=== PATIENT | male | born 1965 | race Caucasian/White ===

== ENCOUNTER → 2017-12-17 12:07 | Outpatient (CLI) | payer OTHER, SELFPAY ==
[2015-12-17 12:56] VITALS: BMI 34.7
[2015-12-17 14:29] VITALS: BP 135/75
[2017-12-17 12:13] LABS: Bacteria 0 SEEN /hpf (None Seen); Mucous, Urine 0 SEEN /hpf (<or=2+); White Blood Cells 0 SEEN /hpf (0-5)
[2017-12-17 15:47] LABS: Absolute Lymphocyte Count 4.72 X10^3/ul (0.83-4.51); Absolute Neutrophil Count 5.3 X10^3/uL (2.0-7.7); Basophil# 0.03 X10^3/uL; Basophil% 0.3 % (0-1); Eosinophil# 0.19 X10^3/uL; Eosinophils% 1.8 % (0-5); Hematocrit 45.3 % (40-54); Hemoglobin 14.8 g/dl (13.0-16.5); Lymphocyte # 4.72 X10^3/ul (4.0); Lymphocyte % 43.7 % (19-41); Mean Corp Hgb Conc 32.7 g/gl (32-36); Mean Corpuscular Hgb 29.6 pg (27.0-32.0); Mean Corpuscular Volume 90.6 fL (80-94); Mean Platelet Vol. 10.6 fl (6.2-12.0); Monocyte# 0.59 X10^3/uL; Monocyte% 5.5 % (0-10); Neutrophil # 5.25 X10^3/uL (2.7-7.7); Neutrophil % 48.4 % (47-70); POSITIVE COUNT NO; POSITIVE DIFFERENTIAL NO; POSITIVE MORPHOLOGY NO; Platelet Count 251 K/mm3 (150-450); RBC Distribution Width CV 13.9 % (11.6-14.6); RBC Distribution Width SD 45.7 fl (35.1-43.9); White Blood Count 10.8 K/mm3 (4.4-11.0)
[2017-12-17 15:55] LABS: Color, Urine Straw (Yellow); Glucose, Dipstick Normal (Normal); Ketone-Dipstick Negative (Negative); Leukocyte Esterase-Dipstick Negative /ul (Negative); Nitrite-Dipstick Negative (Negative); Occult Blood-Urine Negative /ul (Negative); Protein-Dipstick Negative (Negative); Urine Bilirubin Dipstick Negative (Negative); Urine Clarity Clear (Clear); Urine Urobilinogen Normal (Normal)
[2017-12-17 16:10] LABS: AST(SGOT) 18 U/L (15-37); Alanine Aminotransfer ALT/SGPT 29 U/L (16-61); Albumin, Serum 3.8 g/dL (3.2-5.0); Alkaline Phosphatase 105 U/L (45-117); Anion Gap 10 (5-15); BUN 13 mg/dL (7-18); BUN/Creat Ratio 13.4 RATIO (10-20); Calcium,Total 8.9 mg/dL (8.5-10.1); Chloride 104 mmol/L (98-107); Cholesterol 169 mg/dL (200); Creatinine, Serum 0.97 mg/dL (0.70-1.30); EST Glomerular Filtration Rate 87 mL/min (>60); Est Glom Filt Rate - Afr Amer 105 mL/min (>60); Globulin 3.8 g/dL (2.2-4.2); Glucose 80 mg/dL (74-106); High Density Lipoprotein 29 mg/dL; PSA,Total - Annual Screen 0.46 ng/mL (0.00-4.00); Potassium 4.4 mmol/L (3.5-5.1); Protein, Total 7.6 g/dL (6.4-8.2); Sodium Level 139 mmol/L (136-145); Thyroid Stim Hormone (TSH) 2.23 uIU/mL (0.358-3.74); Triglycerides 259 mg/dL; Very Low Density Lipoprotein 52 mg/dL (5-40)
[2017-12-17 16:13] LABS: Squamous Epithelial Cells - UA 0-5 SEEN /hpf (0-5)
[2017-12-17 16:15] LABS: Red Blood Cells-Urine 0-5 SEEN /hpf (0-5)
[2017-12-19 08:32] LABS: Hep C Antibodies <0.1 s/co ratio (0.0-0.9)
== END ==
PROVIDERS: Family Provider Family Medicine; PCP Family Medicine; Visit Provider Family Medicine
DX: E66.9 Obesity, unspecified (principal); Z72.0 Tobacco use; Z13.29 Encounter for screening for other suspected endocrine disorder; Z83.3 Family history of diabetes mellitus; Z80.42 Family history of malignant neoplasm of prostate; Z13.220 Encounter for screening for lipoid disorders; Z11.59 Encounter for screening for other viral diseases
CPT/HCPCS: 36415; 80053; 80061; 81001; 83036; 84153; 84443; 85025; 86803; G0103

== ENCOUNTER 2018-01-10 11:32 | Emergency (ER) | payer OTHER, SELFPAY ==
[2018-01-10 11:33] VITALS: BP 136/64; PULSE 78; RESP 18; TEMP 36.6; O2SAT 98; BMI 36.4
[2018-01-10 11:41] VITALS: BP 114/82; PULSE 105; RESP 20; O2SAT 98
--- NOTE | 2018-01-10 12:02 | RAD_ITS ---
STUDY: X-RAY CHEST REASON FOR EXAM: Male, 53 years old. Dyspnea and A. fib TECHNIQUE: Single AP portable view of the chest. COMPARISON: 01/14/2015 FINDINGS: The lungs are clear and expanded. There is no demonstrated pleural abnormality. There is mild cardiac enlargement. Normal mediastinum and jesus. Normal visualized pulmonary arteries. Normal visualized aortic arch and descending thoracic aorta. Normal visualized thoracic spine. Normal visualized ribs, clavicles, and shoulders. There is no demonstrated abnormality of the visualized soft tissue structures of the upper abdomen. RAD/Chest 1 View (Portable) IMPRESSION: No acute findings Electronically Signed: Ramon King DO at 12:54 EST Tel , Service support ,
--- NOTE | 2018-01-10 12:05 | ED.DCSUM_ITS ---
- ER Visit Summary Date of Service: 01/10/18 Chief Complaint: Atrial fibrillation History of Present Illness: The patient is a 53 M sent from preop for findings of A. fib on EKG. Patient states that intermittent palpitations for a while. He complained of exertional dyspnea. Patient does smoke. Currently on bronchitis treatment day 6 on Levaquin and preparations for his surgery today. Supposed to have an umbilical hernia repair by Dr. Douglass. No fevers. No nausea or vomiting. No stroke history. Denies history of CHF, diabetes, hypertension. No diagnosis of A. fib in the past. Currently denies symptoms. He states he had a PE in 1994 post surgery with infections. He is off anticoagulation medications. Physical Examination: General: Alert and oriented ?3, no acute distress HEENT: Normocephalic, atraumatic. Moist mucosa membranes Neck: supple, nontender. Cardiovascular: Irregular, tachycardic rate and rhythm, no murmurs Respiratory: Normal breath sounds, symmetric, no distress Abdomen: Soft, nontender, nondistended Extremities: Nontender, no edema, pulses intact ?4 Neuro: no focal neurological deficits. Test Results: Reviewed EKG sent up with the patient with A. fib, rate of 114, no ST or T-wave changes. CBC: White count 14.8. Hemoglobin 16. ENT normal. D -dimer 0.32. Troponin negative. Chest x-ray: No acute process Emergency Department Course and Treatment: Patient currently asymptomatic, EKG reviewed with Jina marie with RVR rate of 114. No acute changes. I did check labs troponin which were negative. Exertional dyspnea with tachycardia, low risk Wells criteria for PE. D-dimer obtained which was negative. Chads score is a 0. I did speak with his surgeon, Dr. Douglass on arrival, states with the new onset A. fib, anesthesia would not perform procedures for operation today. He will need cardiac clearance prior to his surgery and it would need to be rescheduled. He was given metoprolol 50 mg orally. Heart rate improved in the 80s and is controlled. Blood pressure stable systolic 120s. I did discuss with cardiology, he will be placed on metoprolol, he will take aspirin daily for his A. fib. Discussed with nursing for Dr. Borrero. He is given a follow-up for outpatient evaluation and cardiac clearance on the 14th of this month. Patient discharged with outpatient follow-up. Pulse ox is stable. Treatment Plan: [] Disposition: Discharge Impression: 1. New onset atrial fibrillation This note was generated with [employer] dictation software. It may contain incorrect words, spelling, and punctuation that were not noted in review of the chart prior to signing ED Disposition - Plan for ED Patient: Disposition: Home or Assisted Living Chief Complaint: Palpitations Diagnosis: Atrial fibrillation Instructions: ED Afib Prescriptions: Metoprolol(XL)Succ [Toprol Xl (Beta Raheem)] 50 mg PO DAILY #60 tablet Referrals: Koffi Armstrong MD [Primary Care Provider] - Julio Borrero MD [STAFF PHYSICIAN] - Keep Jose appointment Additional Instructions: Take aspirin 325 mg daily along with new medication.
[2018-01-10 12:25] LABS: Absolute Lymphocyte Count 5.51 X10^3/ul (0.83-4.51); Absolute Neutrophil Count 8.2 X10^3/uL (2.0-7.7); Basophil# 0.03 X10^3/uL; Basophil% 0.2 % (0-1); Eosinophil# 0.13 X10^3/uL; Eosinophils% 0.9 % (0-5); Hematocrit 47.4 % (40-54); Hemoglobin 16.1 g/dl (13.0-16.5); Lymphocyte # 5.51 X10^3/ul (4.0); Lymphocyte % 37.3 % (19-41); Mean Corpuscular Hgb 29.9 pg (27.0-32.0); Mean Corpuscular Volume 87.9 fL (80-94); Mean Platelet Vol. 9.9 fl (6.2-12.0); Monocyte# 0.81 X10^3/uL; Monocyte% 5.5 % (0-10); Neutrophil # 8.22 X10^3/uL (2.7-7.7); Neutrophil % 55.6 % (47-70); Platelet Count 268 K/mm3 (150-450); RBC Distribution Width CV 13.8 % (11.6-14.6); Red Blood Count 5.39 M/mm3 (4.6-6.2); White Blood Count 14.8 K/mm3 (4.4-11.0)
[2018-01-10 12:27] LABS: Differential Indicated SCAN CRITERIA MET; POSITIVE COUNT NO; POSITIVE DIFFERENTIAL YES; POSITIVE MORPHOLOGY NO
[2018-01-10 12:31] LABS: Anion Gap 10 (5-15); BUN 17 mg/dL (7-18); BUN/Creat Ratio 17.9 RATIO (10-20); Calcium,Total 8.8 mg/dL (8.5-10.1); Chloride 101 mmol/L (98-107); Creatinine, Serum 0.95 mg/dL (0.70-1.30); D-Dimer Quantitative (DVT/PE) 0.32 FEU/ug/m (0.27-0.49); EST Glomerular Filtration Rate 89 mL/min (>60); Est Glom Filt Rate - Afr Amer 107 mL/min (>60); Estimated Creatinine Clearance 93.92 ml/min; Glucose 85 mg/dL (74-106); Potassium 4.2 mmol/L (3.5-5.1); Sodium Level 137 mmol/L (136-145)
[2018-01-10 12:54] LABS: Reactive Lymphocyte RARE
[2018-01-10] MEDS: Metoprolol Tartrate 25 MG Tablet 50 MG PO (13:09)
[2018-01-10 14:11] VITALS: BP 114/72; PULSE 86; RESP 16; O2SAT 96
[2018-01-10 14:38] VITALS: BP 134/85; PULSE 73; RESP 16; O2SAT 97
[2018-01-10 15:06] VITALS: BP 130/74; PULSE 80; RESP 14; O2SAT 99
[2018-01-11 13:42] LABS: Pathologist Review Reviewed
== END 2018-01-10 15:07 | disposition home or self-care (01) ==
PROVIDERS: Emergency Provider Emergency Medicine; Family Provider Family Medicine; PCP Family Medicine
DX: I48.91 Unspecified atrial fibrillation (principal); F17.200 Nicotine dependence, unspecified, uncomplicated; J40 Bronchitis, not specified as acute or chronic; Z86.711 Personal history of pulmonary embolism; Z79.2 Long term (current) use of antibiotics
CPT/HCPCS: 71045; 80048; 84484; 85025; 85379; 99285; A4216

== ENCOUNTER 2018-01-25 11:55 | Day surgery (SDC) | payer OTHER, SELFPAY ==
[2018-01-10 10:51] VITALS: BP 141/88; PULSE 86; RESP 16; TEMP 36.3; O2SAT 98; BMI 36.3
[2018-01-25] VITALS (10 sets, daily range): BP systolic 84–141; BP diastolic 52–90; PULSE 68–150; RESP 16–18; TEMP 36.1–36.8; O2SAT 94–100; BMI 36.6
--- NOTE | 2018-01-25 14:24 | PCM.DC.HER ---
Discharge Diet: Light diet - advance as tolerated Discharge Activity: Return to Normal Activity, May Drive - when you are no longer taking narcotic pain medications., May Shower - with the bandage in place 1-2 days after surgery. Lifting Restrictions: 20 pounds for 8 weeks. Additional Activity Instructions:: Climbing stairs is fine, walking is encouraged. Sitting in bed may be uncomfortable. Sitting up using your lateral muscles (sitting up sideways) is usually more comfortable. Do not drive, work heavy equipment of sign legal documents for 24 hours. If your hernia repair was an ingunial repair, you may have scrotal swelling, an ice pack and/or athletic support can provide more comfort. Pain medications may cause nausea, you should typically eat light foods as you take your pain medications. Pain medications may also cause constipation. If you have difficulty with this, discuss with your doctor. Call your doctor if your incision/area has: Continuous Slow Oozing, Sudden Increased Bleeding, Increased Pain/ Swelling, Increased Redness, Foul Smelling Discharge Call your doctor if you observe: Fever of 101 or Higher Suture Line Care: Avoid Pulling/Pushing, Avoid Pinching/Bending Additional Dressing/Incision Instructions:: Leave the operative bandage on for 2-3 days. When you remove the bandage, leave the steri-strips on place until your follow up appointment or they fall off. Allergies/Adverse Reactions: Allergies amoxicillin trihydrate [From Augmentin] Adverse Reaction (Verified 01/12/18 15:51) Nausea/Vom/Diarrhea potassium clavulanate [From Augmentin] Adverse Reaction (Verified 01/12/18 15:51) Nausea/Vom/Diarrhea Medications to take at Discharge calcium carbonate 200 mg calcium (500 mg) chewable tablet 200 mg PO TID tab 12/22/17 Varenicline [Chantix] 1 mg PO BID 01/03/18 Metoprolol(XL)Succ [Toprol Xl (Beta Raheem)] 50 mg PO DAILY #60 tab 01/10/18 aspirin 81 mg tablet,delayed release 81 mg PO QDAY tab 01/12/18 Oxycodone HCl/Acetaminophen [Percocet 5/325] 1 - 2 tab PO Q4H PRN PRN 4 Days #30 tab 01/25/18 The following prescriptions were given: Oxycodone HCl/Acetaminophen [Percocet 5/325] 1 - 2 tab PO Q4H PRN PRN 4 Days #30 tab PRN Reason: Pain Primary Care Physician: Koffi Armstrong MD [Primary Care Provider] - Please Follow Up With: Aravind Douglass MD - [phone] When: Plan to have a follow up appointment in 7 days. Call to schedule.
--- NOTE | 2018-01-25 14:25 | PCM.OPRPT ---
Problem List (1) Umbilical hernia without obstruction or gangrene Status: Acute Report of Operation Date of Procedure: 01/25/18 Pre-Operative Diagnosis: k42.9 umbilical hernia without obstruction or gangrene Post-Operative Diagnosis: Same Surgery/Procedure Performed:: Umbilical hernia repair with mesh Type of Anesthesia:: General Anesthesiologist: Reinaldo Jha Estimated Blood Loss (mL): < 25 cc Description of Procedure: Patient was brought into the operating room. He was placed in the supine position. Under excellent general endotracheal intubation the abdomen was sterilely prepped and draped in the usual fashion. Local was injected. A curvilinear incision was made above the umbilicus. Dissection was carried down hernia was identified I dissected the fatty tissue off of the hernia and placed it back into its preperitoneal space. I dissected free a preperitoneal window circumferentially around this umbilical defect no other defects were palpated. I placed a medium ventral X hernia patch into the wound. It laid completely flat. I circumferentially tacked it to the fascia with #1 Nurolon's. All these in interrupted [id number] fashion. I injected local into the surrounding tissue. The wound was brought together with deep dermal stitches of 3-0 Vicryl. A running 4-0 Monocryl. Steri-Strips are applied [place] cotton was applied sterile dressings were applied the patient tolerated the procedure well. - Admit VTE Documentation VTE Present on Admission: No VTE Mechan Device Prophylaxis: SCD's VTE Pharm Prophylaxis ordered?: No Reason prophylaxis not ordered:: Treatment Not Indicated
[2018-01-25] MEDS: Clindamycin 900 MG/50 ML BAG 75 MG IV (14:26)
[2018-01-25] MEDS: Bupivacaine Mpf 0.5% 30 ML VIAL (14:50)
[2018-01-25] MEDS: oxyCODONE 5 MG Tablet 10 MG PO (18:03)
== END 2018-01-25 18:33 | disposition home or self-care (01) ==
LOC: SDC 11:57 → AC 11:57
PROVIDERS: Family Provider Family Medicine; PCP Family Medicine; Visit Provider Surgery
PROC: (CPT 49585; principal; 2018-01-25 14:15)
DX: K42.9 Umbilical hernia without obstruction or gangrene (principal); K21.9 Gastro-esophageal reflux disease without esophagitis; F17.200 Nicotine dependence, unspecified, uncomplicated; Z79.1 Long term (current) use of non-steroidal anti-inflammatories (NSAID); Z86.711 Personal history of pulmonary embolism
CPT/HCPCS: 00830; 49585; 93005; C1781; J7120; J2405

== ENCOUNTER 2018-03-07 10:42 | Outpatient (RCR) | payer OTHER, SELFPAY ==
[2018-02-28 16:29] LABS: Prothrombin Time (Protime)PT. 22.8 SECONDS (11.7-14.9)
[2018-03-07 12:38] LABS: International Normalized Ratio 2.3; Prothrombin Time (Protime)PT. 25.4 SECONDS (11.7-14.9)
== END 2018-03-07 11:00 | disposition home or self-care (01) ==
LOC: LAB 10:42
PROVIDERS: Family Provider Family Medicine; PCP Family Medicine; Visit Provider Internal Medicine Cardiovascular Disease
DX: I48.91 Unspecified atrial fibrillation (principal)
CPT/HCPCS: 36415; 85610

== ENCOUNTER → 2018-03-14 09:48 | Outpatient (CLI) | payer OTHER, SELFPAY ==
[2018-03-14 11:07] LABS: International Normalized Ratio 2.4; Prothrombin Time (Protime)PT. 26.3 SECONDS (11.7-14.9)
== END ==
LOC: LAB.FUTURE 09:50
PROVIDERS: Family Provider Family Medicine; PCP Family Medicine; Visit Provider Internal Medicine Cardiovascular Disease
DX: I48.91 Unspecified atrial fibrillation (principal)
CPT/HCPCS: 36415; 85610

== ENCOUNTER 2018-03-21 09:52 | Outpatient (RCR) | payer OTHER, SELFPAY ==
[2018-03-21 10:28] LABS: International Normalized Ratio 2.1; Prothrombin Time (Protime)PT. 23.9 SECONDS (11.7-14.9)
[2018-03-21 10:51] LABS: Anion Gap 9 (5-15); BUN 16 mg/dL (7-18); BUN/Creat Ratio 16.8 RATIO (10-20); Calcium,Total 9.3 mg/dL (8.5-10.1); Chloride 106 mmol/L (98-107); Creatinine, Serum 0.95 mg/dL (0.70-1.30); EST Glomerular Filtration Rate 88 mL/min (>60); Est Glom Filt Rate - Afr Amer 107 mL/min (>60); Glucose 100 mg/dL (74-106); Potassium 4.5 mmol/L (3.5-5.1); Sodium Level 136 mmol/L (136-145)
== END 2018-03-21 10:00 | disposition home or self-care (01) ==
LOC: LAB 09:52
PROVIDERS: Nurse Practitioner Family; Family Provider Family Medicine; PCP Family Medicine; Visit Provider Internal Medicine Cardiovascular Disease
DX: I48.91 Unspecified atrial fibrillation (principal)
CPT/HCPCS: 36415; 80048; 85610

== ENCOUNTER → 2018-03-28 12:20 | Day surgery (SDC) | payer OTHER, SELFPAY ==
[2018-03-25 10:43] VITALS: BMI 32.4
[2018-03-28 11:30] LABS: Prothrombin Time Fingerstick 26.5 SEC (11.9-14.4)
--- NOTE | 2018-03-28 12:54 | PCM.OP.BLANK ---
Operative Report Date of Procedure: 03/28/18 DC cardioversion. 53-year-old man with a history of chronic persistent atrial fibrillation. Patient's noted to be on anticoagulation with a therapeutic INR over the last 4 weeks. The patient was brought into the cardiac catheterization lab noninvasive section. Patient was seen by Dr. Drake Esqueda of the critical care division. After informed consent was obtained anterior posterior pads were applied. The patient was then administered 60 mg of intravenous propofol. 300 J of synchronized DC cardioversion energy were applied with prompt reversal to sinus rhythm. Patient tolerated the procedure well with no sequelae. Postoperative EKG confirmed the above. Conclusion: Successful DC cardioversion from atrial fibrillation to sinus rhythm Plan Follow-up EKG in the office in follow-up. .
--- NOTE | 2018-03-28 13:00 | PCM.OP.BLANK ---
Operative Report Date of Procedure: 03/28/18 CONSCIOUS SEDATION REPORT DATE OF SERVICE: March 28, 2018 BRIEF HISTORY OF PRESENT ILLNESS: The patient is a 53-year-old male who presented to [facility] for an elective outpatient cardioversion due to underlying atrial fibrillation. The patient is currently therapeutically anticoagulated on Coumadin with an INR of 2.3 this morning. His last surface echocardiogram revealed ejection fraction of approximately 55%. The patient is a current smoker of one pack per day. There is concern for potential underlying obstructive sleep apnea. However, the patient is yet to undergo a formal polysomnogram. He denies any previous anesthetic complications. The patient has never previously undergone a cardioversion. PHYSICAL EXAMINATION: VITAL SIGNS: Reviewed and were acceptable. GENERAL: The patient is an overweight male, in no apparent distress, speaking in full sentences. HEENT: Normocephalic, atraumatic. Mucous membranes are moist and pink. Good mouth opening noted. Trachea is midline. Good neck mobility. CHEST: S1, S2 irregularly irregular. No murmurs, rubs or gallops were noted. LUNGS: Clear to auscultation bilaterally without appreciable wheezes, rales or rhonchi. ABDOMEN: Soft, nontender, nondistended. Positive bowel sounds. EXTREMITIES: There is no clubbing, cyanosis or edema. ASA Class: II DESCRIPTION OF PROCEDURE: After confirmation of informed consent, the patient's anesthesia plan was reviewed in detail. Propofol was chosen. Risks and benefits were reviewed and the patient agreed to proceed. At 1233, the patient was given 60 mg of propofol. The patient achieved an appropriate level of sedation and was given a 300 joule synchronized cardioversion by Dr. Borrero at the bedside. This was successful in achieving normal sinus rhythm. The patient was monitored until 1238, at which time he reached his baseline mental status and function. The patient tolerated the procedure well. COMPLICATIONS: None ESTIMATED BLOOD LOSS: None RECOMMENDATIONS: Okay to recover in usual fashion. Code Visit 9xxxx: Other Procedure See Report - [id number]
== END ==
PROVIDERS: Family Provider Family Medicine; PCP Family Medicine; Visit Provider Internal Medicine Cardiovascular Disease
DX: I48.91 Unspecified atrial fibrillation (principal); K21.9 Gastro-esophageal reflux disease without esophagitis; F17.210 Nicotine dependence, cigarettes, uncomplicated; G47.10 Hypersomnia, unspecified; E66.9 Obesity, unspecified; Z68.30 Body mass index [BMI] 30.0-30.9, adult; Z86.711 Personal history of pulmonary embolism; Z79.01 Long term (current) use of anticoagulants; Z79.82 Long term (current) use of aspirin; Z79.899 Other long term (current) drug therapy
CPT/HCPCS: 36416; 85610; 92960; 93005; J7040

== ENCOUNTER → 2018-05-13 20:00 | Outpatient (CLI) | payer OTHER, SELFPAY | PROVIDERS: Family Provider Family Medicine; PCP Family Medicine; Visit Provider Nurse Practitioner Family | DX: R06.09 Other forms of dyspnea (principal); E66.9 Obesity, unspecified; I48.91 Unspecified atrial fibrillation | CPT/HCPCS: 95811 ==

== ENCOUNTER → 2018-07-28 09:14 | Outpatient (CLI) | payer OTHER, SELFPAY ==
[2018-07-28 09:52] LABS: International Normalized Ratio 3.2; Prothrombin Time (Protime)PT. 32.7 SECONDS (11.7-14.9)
== END ==
PROVIDERS: Family Provider Family Medicine; PCP Family Medicine; Visit Provider Nurse Practitioner Acute Care
DX: R06.09 Other forms of dyspnea (principal)
CPT/HCPCS: 36415; 85610

== ENCOUNTER 2018-09-14 14:30 | Outpatient (RCR) | payer OTHER, SELFPAY ==
[2018-09-14 16:41] LABS: Prothrombin Time (Protime)PT. 36.2 SECONDS (11.7-14.9)
[2018-09-14 16:50] LABS: International Normalized Ratio 3.6
== END 2018-10-07 09:35 | disposition home or self-care (01) ==
LOC: LAB 14:30
PROVIDERS: Physician Assistant Medical; Family Provider Family Medicine; PCP Family Medicine; Referring Provider Internal Medicine Cardiovascular Disease; Visit Provider Internal Medicine Cardiovascular Disease
DX: I48.91 Unspecified atrial fibrillation (principal)
CPT/HCPCS: 36415; 85610

== ENCOUNTER 2018-10-11 12:55 | Outpatient (RCR) | payer OTHER, SELFPAY ==
[2018-10-11 11:59] VITALS: BMI 39.3
[2018-10-11 13:52] LABS: International Normalized Ratio 2.7; Prothrombin Time (Protime)PT. 29.1 SECONDS (11.7-14.9)
== END 2018-10-11 13:00 | disposition home or self-care (01) ==
LOC: LAB 12:55
PROVIDERS: Family Provider Family Medicine; PCP Family Medicine; Referring Provider Internal Medicine Cardiovascular Disease; Visit Provider Internal Medicine Cardiovascular Disease
DX: I48.91 Unspecified atrial fibrillation (principal)
CPT/HCPCS: 36415; 85610

== ENCOUNTER → 2018-10-25 10:49 | Outpatient (CLI) | payer OTHER, SELFPAY ==
[2018-10-25 09:19] VITALS: BMI 39.3
[2018-10-25 13:29] LABS: Absolute Lymphocyte Count 3.71 X10^3/ul (0.83-4.51); Absolute Neutrophil Count 6.2 X10^3/uL (2.0-7.7); Basophil# 0.04 X10^3/uL; Basophil% 0.4 % (0-1); Eosinophil# 0.16 X10^3/uL; Eosinophils% 1.5 % (0-5); Lymphocyte # 3.71 X10^3/ul (4.0); Lymphocyte % 34.5 % (19-41); Mean Corp Hgb Conc 33.3 g/gl (32-36); Mean Platelet Vol. 10.8 fl (6.2-12.0); Monocyte# 0.65 X10^3/uL; Neutrophil # 6.17 X10^3/uL (2.7-7.7); Neutrophil % 57.3 % (47-70); Platelet Count 278 K/mm3 (150-450); RBC Distribution Width CV 13.9 % (11.6-14.6); RBC Distribution Width SD 45.7 fl (35.1-43.9); White Blood Count 10.8 K/mm3 (4.4-11.0)
[2018-10-25 13:30] LABS: POSITIVE COUNT NO; POSITIVE DIFFERENTIAL NO; POSITIVE MORPHOLOGY NO
[2018-10-25 13:43] LABS: International Normalized Ratio 2.1; Prothrombin Time (Protime)PT. 23.8 SECONDS (11.7-14.9)
--- OUTSIDE RECORDS SUMMARY | 2019-01-26 19:05 | XMS RPT_ITS ---
:1965 Author Organization OHIP Support Name Relationship Address Phone FIORELLA ERIK Unavailable [address] + [place] [address] [employer] [facility] [employer] Unavailable [address] + [place] [address] LUKE MARCUS Unavailable [address] + [place] [address] FIORELLA ERIK Unavailable [address] + [place] [address] [employer] [facility] [employer] Unavailable [address] + [place] [address] LUKE MARCUS Unavailable [address] + [place] [address] FIORELLA ERIK Unavailable [address] + [place] [address] [employer] Unavailable [address] + [place] [address] LUKE MARCUS Unavailable [address] + [place] [address] FIORELLA ERIK Unavailable [address] + [place] [address] [employer] Unavailable [address] + [place] [address] LUKE MARCUS Unavailable [address] + [place] [address] FIORELLA ERIK Unavailable [address] + [place] [address] [employer] [facility] [employer] Unavailable [address] + [place] [address] LUKE MARCUS Unavailable Unavailable + BARROS, ERIK Unavailable [address] + [place] [address] [employer] [facility] [employer] Unavailable [address] + [place] [address] LUKE MARCUS Unavailable . + ., . . BARROS, ERIK Unavailable [address] + [place] [address] [facility] [employer] Unavailable [address] + [place] [address] LADI MARCUSON Unavailable . + ., . . FTIZPATRICK, ERIK Unavailable Unavailable + NOT GIVEN Unavailable Unavailable Unavailable BARROS, ERIK Unavailable [address] + [place] [address] [facility] [employer] Unavailable [address] + [place] [address] LUKE MARCUS Unavailable Unavailable + BARROS, ERIK Unavailable [address] + [place] [address] [employer] [facility] [employer] Unavailable . +. [place] [address] LUKE MARCUS Unavailable . + [place] [address] BARROS, ERIK Unavailable [address] + [place] [address] [facility] [employer] Unavailable . +. [place] [address] LUKE MARCUS Unavailable . + [place] [address] BARROS, ERIK Unavailable [address] + [place] [address] [facility] [employer] Unavailable . +. [place] [address] LUKE MARCUS Unavailable Unavailable + [place] BARROS, ERIK Unavailable [address] + [place] [address] UE Unavailable Unavailable Unavailable LUKE MARCUS Unavailable [address] + [place] [address] BARROS, ERIK Unavailable [address] + [place] [address] UE Unavailable Unavailable Unavailable WELLS, LUKE Unavailable [address] + [place] [address] BARORS, ERIK Unavailable [address] + [place] [address] UE Unavailable Unavailable Unavailable WELLS, LUKE Unavailable [address] + [place] [address] BARROS, ERIK Unavailable [address] + [place] [address] UE Unavailable Unavailable Unavailable WELLS, LUKE Unavailable [address] + [place] [address] BARROS, ERIK Unavailable [address] + [place] [address] UE Unavailable Unavailable Unavailable WELLS, LUKE Unavailable [address] + [place] [address] BARROS, ERIK Unavailable [address] + [place] [address] UE Unavailable Unavailable Unavailable WELLS, LUKE Unavailable [address] + [place] [address] BARROS, ERIK Unavailable [address] + [place] [address] UE Unavailable Unavailable Unavailable WELLS, LUKE Unavailable [address] + [place] [address] BARROS, ERIK Unavailable [address] + [place] [address] UE Unavailable Unavailable Unavailable WELLS, LUKE Unavailable [address] + [place] [address] BARROS, ERIK Unavailable [address] + [place] [address] UE Unavailable Unavailable Unavailable WELLS, LUKE Unavailable Unavailable + [place] [address] BARROS, ERIK Unavailable [address] + [place] [address] UE Unavailable Unavailable Unavailable WELLS, LUKE Unavailable Unavailable + [place] [address] BARROS, ERIK Unavailable [address] + [place] [address] UE Unavailable Unavailable Unavailable LUKE MARCUS Unavailable Unavailable + [place] [address] BARROS, ERIK Unavailable [address] + [place] [address] UE Unavailable Unavailable Unavailable LUKE MARCUS Unavailable [address] + [place] [address] BARROS, ERIK Unavailable [address] + [place] [address] UE Unavailable Unavailable Unavailable BARROS, ERIK Unavailable [address] + [place] [address] UE Unavailable Unavailable Unavailable BARROS, ERIK Unavailable [address] + [place] [address] UE Unavailable Unavailable Unavailable BARROS, ERIK Unavailable [address] + [place] [address] UE Unavailable Unavailable Unavailable BARROS, ERIK Unavailable [address] + [place] [address] UE Unavailable Unavailable Unavailable BARROS, ERKI Unavailable [address] + [place] [address] UE Unavailable Unavailable Unavailable BARROS, ERIK Unavailable [address] + [place] [address] UE Unavailable Unavailable Unavailable BOGCO Unavailable [address] + [place] [address] BARROS, ERIK Unavailable [address] + [place] [address] BOGCO Unavailable [address] + [place] [address] BARROS, ERIK Unavailable [address] + [place] [address] BOGCO Unavailable [address] + [place] [address] BARROS, ERIK Unavailable [address] + [place] [address] BOG[facility] Unavailable [address] + [place] [address] BARROS, ERIK Unavailable [address] + [place] [address] BOG[facility] Unavailable [address] + [place] [address] BARROS, ERIK Unavailable [address] + [place] [address] BOG[facility] Unavailable [address] + [place] [address] BARROS, ERIK Unavailable [address] + [place] [address] BOG[facility] Unavailable [address] + [place] [address] BARROS, ERIK Unavailable [address] + [place] [address] BOG[facility] Unavailable [address] + [place] [address] BARROS, ERIK Unavailable [address] + [place] [address] BOG[facility] Unavailable [address] + [place] [address] BARROS, ERIK Unavailable [address] + [place] [address] FTIZPATRICK, ERIK Unavailable Unavailable + [facility]OG[facility] Unavailable [address] + [place] [address] BARROS, ERIK Unavailable [address] + [place] [address] BOG[facility] Unavailable [address] + [place] [address] BARROS, ERIK Unavailable [address] + [place] [address] BOG[facility] Unavailable [address] + [place] [address] BARROS, ERIK Unavailable [address] + [place] [address] BOG[facility] Unavailable [address] + [place] [address] BARROS, ERIK Unavailable [address] + [place] [address] BOG[facility] Unavailable [address] + [place] [address] BARROS, ERIK Unavailable [address] + [place] [address] BOG[facility] Unavailable [address] + [place] [address] BARROS, ERIK Unavailable [address] + [place] [address] BOG[facility] Unavailable [address] + [place] [address] BARROS, ERIK Unavailable [address] + [place] [address] Care Team Providers Name Role Phone JULIO BORRERO MD Admitting Unavailable JULIO BORRERO MD Attending Unavailable JULIO BORRERO MD Primary Care Unavailable KAUR BENNETT Consulting Unavailable PROVIDER, UNKNOWN Consulting Unavailable PROVIDER, UNKNOWN Consulting Unavailable HUNG BASURTO DO Admitting Unavailable HUNG BASURTO DO Attending Unavailable HUNG BASURTO DO Primary Care Unavailable KAUR BENNETT Consulting Unavailable KAUR BENNETT Referring Unavailable PROVIDER, UNKNOWN Consulting Unavailable PROVIDER, UNKNOWN Consulting Unavailable Tracey Tabor Attending Unavailable Krishna Mendoza Referring Unavailable Tracey Tabor Attending Unavailable Krishna Mendoza Primary Care Unavailable Julio Borrero Attending Unavailable Julio Borrero Referring Unavailable Krishna Mendoza Primary Care Unavailable Tracey Tabor Consulting Unavailable Edelmira Saldana Consulting Unavailable Drake Esqueda D.O. Attending Unavailable Krishna Mendoza Referring Unavailable Krishna Mendoza Attending Unavailable Krishna Mendoza Primary Care Unavailable Aravind Douglass Attending Unavailable Krishna Mendoza Referring Unavailable Krishna Mendoza Primary Care Unavailable Krishna Mendoza Attending Unavailable Krishna Mendoza Referring Unavailable Krishna Mendoza Primary Care Unavailable Krishna Mendoza Primary Care Unavailable Antolin Parker Attending Unavailable Moon Samano Attending Unavailable Krishna Dye Attending Unavailable Schinner, Krishna E Referring Unavailable RoofKrishna H Attending Unavailable Roof, Krishna H Referring Unavailable Schinner, Krishna E Primary Care Unavailable Drake Esqueda D.O. Attending Unavailable Drake Esqueda D.O. Referring Unavailable Schinner, Krishna E Primary Care Unavailable Gissell, Julio Attending Unavailable Schinner, Krishna E Referring Unavailable Schinner, Krishna E Primary Care Unavailable Aravind Douglass Attending Unavailable Aravind Douglass Referring Unavailable Schinner, Krishna E Primary Care Unavailable Mirella Hinojosa PA-C Attending Unavailable Schinner, Krishna E Referring Unavailable Schinner, Krishna E Primary Care Unavailable Gissell, Julio Attending Unavailable Aravind Douglass Referring Unavailable Aravind Douglass Attending Unavailable Schinner, Krishna E Referring Unavailable Schinner, Krishna E Primary Care Unavailable Aravind Douglass Attending Unavailable Schinner, Krishna E Referring Unavailable Schinner, Krishna E Primary Care Unavailable Aravind Douglass Attending Unavailable Schinner, Krishna E Referring Unavailable Schinner, Krishna E Primary Care Unavailable Krishna Dye Attending Unavailable Schinner, Krishna E Referring Unavailable Schinner, Krishna E Primary Care Unavailable Aravind Douglass Attending Unavailable Aravind Douglass Attending Unavailable Schinner, Krishna E Referring Unavailable Schinner, Krishna E Primary Care Unavailable Gissell, [place] Attending Unavailable Schinner, Krishna E Primary Care Unavailable Gissell, Julio Referring Unavailable Aravind Douglass Attending Unavailable Schinner, Krishna E Referring Unavailable Schinner, Krishna E Primary Care Unavailable Gissell, [place] Attending Unavailable Gissell, Julio Referring Unavailable Schinner, Krishna E Primary Care Unavailable Aravind Douglass Attending Unavailable Schinner, Krishna E Referring Unavailable Schinner, Krishna E Primary Care Unavailable Gissell, Julio Attending Unavailable Gissell, [place] Referring Unavailable Schinner, Krishna E Primary Care Unavailable Aravind Douglass Attending Unavailable Schinner, Krishna E Referring Unavailable Schinner, Krishna E Primary Care Unavailable Krishna Dye Attending Unavailable Schinner, Krishna E Referring Unavailable Schinner, Krishna E Primary Care Unavailable Aravind Douglass Attending Unavailable Schinner, Krishna E Referring Unavailable Gissell, [place] Attending Unavailable Gissell, Julio Referring Unavailable Schinner, Krishna E Primary Care Unavailable Gissell, [place] Attending Unavailable Gissell, [place] Referring Unavailable Schinner, Krishna E Primary Care Unavailable Gissell, [place] Consulting Unavailable Drake Esqueda D.O. Attending Unavailable Gissell, Julio Referring Unavailable Schinner, Krishna E Primary Care Unavailable Gissell, Julio Consulting Unavailable Schinner, Krishna E Referring Unavailable Gissell, [place] Attending Unavailable Gissell, [place] Referring Unavailable Schinner, Krishna E Primary Care Unavailable Tracey Tabor Consulting Unavailable Gissell, [place] Attending Unavailable Schinner, Krishna E Referring Unavailable Gissell, [place] Attending Unavailable Gissell, [place] Referring Unavailable Roof, Krishna H Attending Unavailable Schinner, Krishna E Primary Care Unavailable Saldana, Edelmira Attending Unavailable Roof, Krishna H Referring Unavailable Saldana, Edelmira Attending Unavailable Schinner, Krishna E Referring Unavailable Saldana, Edelmira Attending Unavailable Schinner, Krishna E Referring Unavailable Saldana, Edelmira Attending Unavailable Schinner, Krishna E Primary Care Unavailable Drake Esqueda D.O. Attending Unavailable Schinner, Krishna E Referring Unavailable Saldana, Edelmira Attending Unavailable Schinner, Krishna E Referring Unavailable Gissell, Julio Attending Unavailable Gissell, [place] Referring Unavailable Schinner, Krishna E Primary Care Unavailable Tracey Tabor Consulting Unavailable Gissell, Julio Attending Unavailable Schinner, Krishna E Referring Unavailable PROBLEMS PROBLEMS DATE TYPE CONDITION / CODE ATTENDING STATUS SOURCE 11/18/2018 Unknown I48.91 - Unspecified Krishna Dye Active [facility] atrial fibrillation / Community I48.91(ICD-10) Hospital Repository 11/18/2018 Unknown R06.09 - Other forms Krishna Dye [facility] of dyspnea / Community R06.09(ICD-10) Hospital Repository 11/18/2018 Unknown G47.33 - Obstructive Drake Esqueda Active [facility] sleep apnea (adult) D.O. Community (pediatric) / Hospital G47.33(ICD-10) Repository 11/18/2018 Unknown F17.210 - Nicotine Drake Esqueda Active [facility] dependence, D.O. Community cigarettes, Hospital uncomplicated / Repository F17.210(ICD-10) 05/13/2018 Unknown E66.9 - Obesity, Krishna Dye [facility] unspecified / Community E66.9(ICD-10) Hospital Repository 04/09/2018 Unknown R00.2 - Palpitations / Gissell, Julio Active [facility] R00.2(ICD-10) [facility] Hospital Repository 04/07/2018 Unknown Z01.810 - Encounter Gissell, Julio Active [facility] for preprocedural [facility] cardiovascular Hospital examination / Repository Z01.810(ICD-10) 04/07/2018 Unknown Z79.01 - 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 Gissell, [place] Active [facility] (current) use of Community anticoagulants / Hospital Z79.01(ICD-10) Repository 04/07/2018 Unknown F17.200 - Nicotine Gissell, Julio Active [facility] dependence, Community unspecified, Hospital uncomplicated / Repository F17.200(ICD-10) 03/10/2018 Unknown Z51.89 - Encounter for Rafat, Active [facility] other specified [facility] aftercare / Hospital Z51.89(ICD-10) Repository 02/17/2018 Unknown K42.9 - Umbilical [place], Active [facility] hernia without [facility] obstruction or Hospital gangrene / Repository K42.9(ICD-10) 02/04/2018 Unknown R94.31 - Abnormal Gissell, Julio Active [facility] electrocardiogram Community [ECG] [EKG] / Hospital R94.31(ICD-10) Repository PROCEDURES PROCEDURES No Procedure Records FoundRESULTS RESULTS CARDIOLOGY VISIT Observed: 11/22/2018 Status: F Source: BIG TIMBER REPORT 10:08 AM [facility] REPOSITORY [facility] [address] [place] [address] OFFICE VISIT Date of Service: 11/18/18 MR#: [id number] Acct: [id number] Name: JANES LANDRY Rep #: [id number] : 1965 Provider: VALERIA Dye Age/Sex: 53/M Location: [facility] Status: Signed HPI HPI Details: JANES LANDRY, is a 53 M who presents to the office today for a cardiovascular outpatient follow-up. He has a history of atrial fibrillation with cardioversion in March 2018. He reverted back to atrial fibrillation and was started on amiodarone therapy. He also has a history of obstructive sleep apnea and endocarditis. Patient's Toprol was recently increased and he was started on Lasix 40 mg due to shortness of breath. He presents today for further evaluation of his atrial fibrillation and consideration for repeat cardioversion. He states with the addition of Lasix he does not notice much improvement in SOB. He states his inhaler has helped. Pt denies arm, jaw, or neck discomfort. His exercise tolerance is minimal. He states he is concerned to be active because of having a heart attack. He states continual dyspnea on exertion. He has reduced his caffeine intake. He has decreased his cigarette intake down to one pack per day. Pt denies symptoms of palpitations, lightheadedness, dizziness, near syncopal or syncopal episodes. Pt denies edema or claudication issues. Pt. denies orthopnea, PND, blood in urine, blood in stool, myalgia, or unexplainable fatigue. He states a quick sharp chest pain that is gone as quick as it comes twice yesterday while lying on the couch. He continues to express concerns regarding tooth pain. He states his dentist does not want to work on his tooth d/t anticoagulation. He states not having dental insurance, which has had financial concerns regarding dental work-up. Intake Vital Signs11/18/18 Height 5 ft 10 in 11/18/18 Weight: 280 lb 11/18/18 Body Mass Index (BMI) 40.1 11/18/18 Blood Pressure 112/64 11/18/18 Blood Pressure Location Lt brachial Intake Visit Reasons: 1 M Equipment Tech Required: No Accompanied by: none Is patient in pain?: No Allergies amoxicillin trihydrate [From Augmentin] Adverse Reaction (Verified 11/18/18 09:29) Nausea/Vom/Diarrhea potassium clavulanate [From Augmentin] Adverse Reaction (Verified 11/18/18 09:29) Nausea/Vom/Diarrhea Medications aspirin 81 mg tablet,delayed release 81 mg PO QDAY tab 01/12/18 [History Confirmed 11/18/18] warfarin 5 mg tablet 5 mg PO .COMPLEX #60 tab 09/13/18 [Rx Confirmed 11/18/18] levalbuterol HFA 45 mcg/actuation aerosol inhaler 2 inh INHALATION Q6H #15 g 09/16/18 [Rx Confirmed 11/18/18] metoprolol succinate ER 100 mg tablet,extended release 24 hr 100 mg PO DAILY #90 tab 10/11/18 [Rx Confirmed 11/18/18] amiodarone 200 mg tablet 200 mg PO QDAY tab 10/25/18 [History Confirmed 11/18/18] furosemide 40 mg tablet 40 mg PO DAILY #30 tab 10/25/18 [Rx Confirmed 11/18/18] PFSH Medical History 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 use of antiarrhythmic drug (Chronic) DONI (obstructive sleep apnea) (Chronic) Hypersomnia, unspecified (Chronic) 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) Umbilical hernia without obstruction or gangrene (Resolved) Bacterial endocarditis (Chronic 2004) Pulmonary embolism (Chronic) Nicotine dependence (Chronic) Rapid palpitations (Resolved) Dyspnea on exertion (Chronic) Obesity (BMI 30.0-34.9) (Chronic) Preop cardiovascular exam (Resolved) New onset atrial fibrillation (Chronic) Acid reflux (Resolved) Colon polyps (Resolved) Duodenal ulcer (Resolved) Umbilical hernia (Resolved) history of colon perforation (Resolved) Surgical History H/O umbilical hernia repair (Resolved 01/2018) History of colon resection (Resolved 1994) Family History Mother Diabetes Heart disease atrial fib, hx ablation Thyroid disorder CAD (coronary artery disease) CABG Grandfather Myocardial infarction Father Cancer bladder Social History Smoking Status: Current every day smoker tobacco type: cigarettes alcohol intake: current alcohol intake frequency: a few times a month Alcohol type: beer substance use type: former substance user Date of last use: 2016 marijuana, cocaine in 20s, marijuana, crack/cocaine caffeine: Yes Type: coffee Number of servings: 3 what type of physical activity do you participate in: none seatbelt use: always do you feel safe at home: Yes ROS Const Const: Negative for body ache, fever(s), chills, fatigue or weakness ENT ENT: Negative for dizziness Cardio Chest Pain: Yes (sharp quick pain) Character: sharp Onset: at rest Location: left chest Palpitations: No Edema: None Muscle aches with walking: None Resp Respiratory: Positive for SOB with activity, SOB orthopnea\SOB lying down, paroxysmal nocturnal dyspnea and other (bronchitis); negative for SOB at rest GI GI: Negative nausea, black,tarry stools, bright, red blood in stools or vomiting blood/hematemesis : Negative for hematuria or frequent nighttime urination/ nocturia Musc Musc: Negative for muscle aches/ myalgia Skin Skin: Negative non-healing lesions or rash Neuro Neuro: Negative for weakness, dizziness, lightheadedness, near syncope, syncope or orthostatic symptoms Endo Endo: Negative for fatigue Allergy Allergy/Immunology: Negative for rash Cardiology Exam Const Appearance: cooperative, healthy appearing, well developed, well groomed and no acute distress Nutritional Appearance: well nourished and obese Orientation: alert, awake and oriented x3 Head Head: normal to inspection, normocephalic and atraumatic Ears: hearing grossly normal bilaterally and external ears normal Nose: external nose normal, nares normal Face and Sinus: face symmetric Mouth: tongue normal Teeth and gingiva: fair dentition Eyes General: appearance normal, both eyes and all related structures Eyelids: eyelids normal Conjunctivae: conjunctivae normal Pupils: PERRL EOM: EOM intact bilaterally Neck Neck: normal visual inspection, trachea midline and no JVD JVD: +5 Carotids: normal carotid upstroke and bounding pulses Chest Chest inspection: normal inspection of the chest, symmetric chest movement and normal respiratory effort Auscultation: Bilateral: Clear to Auscultation Cardio Palpation: normal PMI Rhythm: irregularly irregular Heart sounds: S1 normal and S2 normal; negative rub, gallop or murmur GI GI: normal to inspection and obese Neuro General: alert, awake, oriented x3, no focal sensory deficit, gait normal and moves all extremities Skin Skin: no rashes or lesions noted Extremities Pulses: Normal: Right Posterior Tibial Pulse, Left Posterior Tibial Pulse, Right Radial Pulse, Left Radial Pulse Lower Extremity Edema: None: Bilateral Musculoskel Musculoskeletal: No joint tenderness Psych Psychological: normal affect Assessment AND Plan 1. New onset atrial fibrillation I48.91 DCCV in March 2018; Plan - ARJUN Echevarria His echocardiogram in January 2018 showed mild concentric LVH and an estimate ejection fraction of 45-50%. His stress test in January 2018 showed no evidence of inducible ischemia. His EKG in office today showed controlled atrial fibrillation. He will undergo a repeat cardioversion in approximately two weeks. Hopefully the cardioversion plus the assistance with amiodarone, he will maintain NSR and improve symptoms. Depending on overall course we can consider electrophysiology evaluation. He will follow-up in office in approximately 1 week post cardioversion. Orders Orders: 2. Dyspnea on exertion R06.09 Plan - AMADO EchevarriaC This is unchanged with the Lasix. Hopefully, the cardioversion and maintaining regular rhythm help. He will also continue to follow up with pulmonology for input. 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 He will be seen in office in approximately 2 months to evaluate overall progress and to initiate laboratory evaluation if amiodarone therapy is continued. Plan Detail Additional Comments - ARJUN Echevarria Discussed the above patient with Dr. Borrero, he agrees with the plan of care. Thank you for allowing us to participate in the patients plan of care, if you have any questions please do not hesitate to call. This note was generated using a voice recognition system and there may be incorrect words, spelling or punctuation that were not noted when reviewing the office note prior to saving. 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 Stress test from January 2018 showed no evidence of inducible ischemia. Labs LDL Cholesterol 88 mg/dL (0-130) 12/17/17 HDL Cholesterol 29 mg/dL (40-) L 12/17/17 Triglycerides 259 mg/dL (-199) H 12/17/17 VLDL Cholesterol 52 mg/dL (5-40) H 12/17/17 Diagnostics Electrocardiogram 10/11/18 Chest X-Ray 01/10/18 11/18/18 1104 <Electronically signed by Krishna DÍAZ> Date Krishna DÍAZ 11/22/18 1008<Electronically signed by Julio Borrero MD> Cosigner Signature: Date (if applicable) Julio Borrero MD CC: Krishna Mendoza MD PULMONARY VISIT REPORT Observed: 11/18/2018 Status: F Source: BIG TIMBER 12:22 PM [facility] REPOSITORY [facility] [place] [address] [place] [address] OFFICE VISIT Date of Service: 11/18/18 MR#: [id number] Acct: [id number] Name: JANES LANDRY Rep #: [id number] : 1965 Provider: Drake Esqueda D.O. Age/Sex: 53/M Location: [facility] [place].PMW Status: Signed Assessment AND Plan 1. DONI (obstructive sleep apnea) G47.33 CPAP 17 cmH2O Plan The patient has known obstructive sleep apnea and continues to utilize nocturnal CPAP therapy. However, he continues to experience a significant amount of air leak. I am going to send him back to the sleep lab for PAP education to see if an alternative mask may provide additional relief for him. The patient will follow-up in approximately 6 weeks to reassess this ongoing issue. Orders Orders: 2. Obesity (BMI 30.0-34.9) E66.9 Plan Weight loss through dietary modification and a graded exercise regimen is strongly encouraged. 3. Nicotine dependence, cigarettes, uncomplicated F17.210 Plan Given the patient's complaints of recurrent bronchitis and exertional shortness of breath, I recommended that he obtain baseline pulmonary function studies, especially in light of his ongoing tobacco utilization to evaluate for the presence of an obstructive lung disease/chronic bronchitis. The patient is in agreement with this plan. Orders Orders: Plan Detail Other Medications New: Follow Up 6 Weeks (CSM) HPI HPI Comments Details: The patient is a 53-year-old male who presents to the clinic today for a routine scheduled follow-up office visit. If you recall, the patient initially presented to our office in June 2018 for evaluation of obstructive sleep apnea. A split-night study completed on May 13, 2018 shows that the patient has severe sleep apnea, obstructive, and was recommended to be started on nasal CPAP of 17 cm of water. The patient has an extensive tobacco abuse history and smokes 1 pack of cigarettes daily. The patient's nocturnal compliance report was personally reviewed at today's office visit. Over the last 30 days, he has demonstrated an overall compliance rate of 83%. He has a prescribed CPAP pressure of 17 cm of water with a residual AHI of 1.5 events per hour. Air leaks are noted nightly for the most part. Today, the patient feels that he continues to develop recurrent episodes of bronchitis. He reports extensive baseline exertional shortness of breath, which he still feels is related to his heart. Despite this, the patient continues to smoke cigarettes but states that he has cut back to just under 1 pack of cigarettes daily. He has never completed pulmonary function studies previously. He reports the presence of a productive cough but denies fevers or chills. He also reports that he has been suffering from dental pain and is concerned about an underlying dental infection. However, the dentist will not see him until he gets x-rays completed. However, the patient does not have the money to complete said testing. While the patient has increased his use of his nocturnal CPAP, he does report an ongoing air leak, which makes it difficult for him to remain 100% compliant with use. Intake Vital Signs11/18/18 Height 5 ft 8 in 11/18/18 Weight: 278 lb Intake Visit Reasons: 1 M FU Equipment Tech Required: No Accompanied by: Self Is patient in pain?: No Allergies amoxicillin trihydrate [From Augmentin] Adverse Reaction (Verified 11/18/18 09:29) Nausea/Vom/Diarrhea potassium clavulanate [From Augmentin] Adverse Reaction (Verified 11/18/18 09:29) Nausea/Vom/Diarrhea Medications aspirin 81 mg tablet,delayed release 81 mg PO QDAY tab 01/12/18 [History Confirmed 11/18/18] warfarin 5 mg tablet 5 mg PO .COMPLEX #60 tab 09/13/18 [Rx Confirmed 11/18/18] levalbuterol HFA 45 mcg/actuation aerosol inhaler 2 inh INHALATION Q6H #15 g 09/16/18 [Rx Confirmed 11/18/18] metoprolol succinate ER 100 mg tablet,extended release 24 hr 100 mg PO DAILY #90 tab 10/11/18 [Rx Confirmed 11/18/18] amiodarone 200 mg tablet 200 mg PO QDAY tab 10/25/18 [History Confirmed 11/18/18] furosemide 40 mg tablet 40 mg PO DAILY #30 tab 10/25/18 [Rx Confirmed 11/18/18] clindamycin HCl 150 mg capsule 150 mg PO TID 7 Days #21 cap 11/18/18 [Rx Confirmed 11/18/18] [facility] Medical History DONI (obstructive sleep apnea) (Chronic) Hypersomnia, unspecified (Chronic) 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 (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) Umbilical hernia without obstruction or gangrene (Resolved) Bacterial endocarditis (Chronic 2004) Pulmonary embolism (Chronic) Nicotine dependence (Chronic) Rapid palpitations (Resolved) Dyspnea on exertion (Chronic) Obesity (BMI 30.0-34.9) (Chronic) Preop cardiovascular exam (Resolved) New onset atrial fibrillation (Chronic) Acid reflux (Resolved) Colon polyps (Resolved) Duodenal ulcer (Resolved) Umbilical hernia (Resolved) history of colon perforation (Resolved) Surgical History H/O umbilical hernia repair (Resolved 01/2018) History of colon resection (Resolved 1994) Family History Mother Diabetes Heart disease atrial fib, hx ablation Thyroid disorder CAD (coronary artery disease) CABG Grandfather Myocardial infarction Father Cancer bladder Social History Smoking Status: Current every day smoker tobacco type: cigarettes alcohol intake: current alcohol intake frequency: a few times a month Alcohol type: beer substance use type: former substance user Date of last use: 2016 marijuana, cocaine in 20s, marijuana, crack/cocaine caffeine: Yes Type: coffee Number of servings: 3 what type of physical activity do you participate in: none seatbelt use: always do you feel safe at home: Yes Review of Systems Const CONSTITUTIONAL: Positive fatigue; negative anorexia, body ache, chills, daytime sleepiness, fever(s), night sweats, oral thrush, stops breathing during sleep, weight loss, sleeping in chair, weight loss, weight gain, frequent colds, seasonal allergies, other, headache(s) or orthopnea EETM Ear Nose Throat Mouth: Positive hearing normal and nasal discharge (clear); negative hard of hearing, hoarseness, dry mouth in morning, change in vision, itchy eyes, eye pain, swallowing Difficulty, ear pain, nose bleed, headache(s), mouth pain, nasal congestion, post nasal drip, sinus pain, sinus pressure, sore throat or other Cardio Cardiovascular: Negative chest pain, chest pain at rest, chest pain with activity, irregular heart rhythm, edema, shortness of breath when lying down, palpitations, murmur or other Resp Respiratory: Positive as per HPI, shortness of breath, wheezing, cough cough: Positive productive color: Positive other (cream), chest tightness and inhalers; negative pain with cough, chest congestion, pain on inspiration, increase use of rescue inhalers, snoring, apnea or other Gastro Gastrointestional: Negative bloody stools, change in appetite, difficulty swallowing, reflux, hematemesis, melena stool, loose stool, constipation or other Genitourinary: Negative blood in urine, nocturia, pain with urination or other Musc Musculoskeletal: Negative body pain, back pain, neck pain or other Skin/Breast Skin/Breast: Negative dry skin, itching, rash, unusual bruising, breast lump or other Neuro Neurological: Negative restless legs, confusion, weakness or other Psych Psychocological: Negative abnormal sleep pattern, anxiety, thoughts of hurting self/others, hopelessness or other Lymph Lymphatic: Negative easy bleeding, easy bruising, swollen lymph nodes or other Exam Const Constitutional: Positive conversant, cooperative, in no acute respiratory distress, well developed, well nourished, good hygiene, obese and smells of smoke Head Head: Positive normocephalic and atraumatic; negative cyanosis of lips/distal nose Eyes Eye: Positive clear conjunctiva; negative nystagmus or scleral abnormality Ears Ear: Positive hearing normal and external ears normal; negative hard of hearing Nose Nose: Positive external nose normal; negative epistaxis Mouth Mouth: Positive oral mucosae normal and posterior oropharynx is adequate; negative no lesions or post nasal drip Mallampati Score: II: Mallampati Score Neck Neck: Positive normal visual inspection and trachea midline; negative lymphadenopathy Chest Wall Chest: Positive symmetric chest movement Normal AP diameter. Resp lung sounds: Positive diminished diminished: Positive bialteral; negative wheezes, rhonchi or rales Cardio Cardiac: Positive S1 normal and S2 normal; negative rub, gallop or murmur IRIR GI GI: Positive normal bowel sounds and obese Soft without distention Genitourinary: Positive deferred Musc Musculoskeletal: Positive steady gait Skin Pulmonary Skin Exam: Positive intact; negative lesion, ulcers, dermal atrophy or rash Pulses Pulse: Yes Pedal pulses present: Extremities Extremities: No clubbing, No cyanosis, No edema Neuro Neurologic: Yes conversant, Yes no focal neuro deficits, Yes cooperative Lymph Lymphatic: No lymphadenopathy Psych Appearance: Positive grossly normal Mental Status: Positive mental status grossly normal Mood: Positive congruent mood Affect: Positive normal affect Coding Level of Care Code Off vis,est,level 4 Diagnoses DONI (obstructive sleep apnea) G47.33 Obesity (BMI 30.0-34.9) E66.9 Nicotine dependence, cigarettes, uncomplicated F17.210 11/18/18 1222 <Electronically signed by Drake Esqueda DO> Date Drake Esqueda DO Cosigner Signature: Date (if applicable) CC: Krishna Mendoza MD BASIC METABOLIC Collected: 11/18/2018 Status: F Source: [place] PROFILE (BMP) 11:52 AM [facility] REPOSITORY TYPE CODE TESTS RESULT OUT OF RANGE REFERENCE UNITS LAB L501.0100 74-106 mg/dL High GLU 112 Result Comment: Fasting Glucose result from 100 to 125 mg/dL suggests IMPAIRED HOMEOSTASIS per A.D.A. criteria. Please note revised GLUCOSE reference range effective 2017. LAB L501.1000 7-18 mg/dL High BUN 19 LAB L501.1100 0.70-1.30 mg/dL Normal CREAT,SERUM 1.21 Result Comment: The validity of the calculated GFR AND GFRAA in patients over 70 years has not been determined. Clinical correlation is essential. LAB L501.1110 >60 mL/min Normal EST GFR 67 Result Comment: Non- GFR Calc LAB L501.1115 >60 mL/min Normal EST GFR - AA 81 Result Comment: GFR Calc LAB L501.1300 10-20 RATIO Normal BUN/CRE 15.7 LAB L501.2200 8.5-10.1 mg/dL CA Normal 9.2 LAB L501.5300 136-145 mmol/L NA Normal 138 LAB L501.5600 3.5-5.1 mmol/L K Normal 4.5 LAB L501.5900 98-107 mmol/L CL Normal 102 LAB L501.6100 21.0-32.0 mmol/L Normal CO2 28.0 LAB L501.6200 5-15 Normal GAP 8 Performed By: #### L500.2500 #### [facility] [address] [place], [address] PROTHROMBIN TIME W/INR Collected: 11/18/2018 Status: F Source: [place] 11:52 AM [facility] REPOSITORY TYPE CODE TESTS RESULT OUT OF RANGE REFERENCE UNITS LAB L300.4150 11.7-14.9 SECONDS High PROTIME 27.7 LAB L300.4200 Normal INR 2.6 Performed By: #### L300.3900 #### [facility] [address] [place], [address] PROTHROMBIN TIME W/INR Collected: 11/11/2018 Status: F Source: BIG TIMBER 1:23 PM [facility] REPOSITORY TYPE CODE TESTS RESULT OUT OF RANGE REFERENCE UNITS LAB L300.4150 11.7-14.9 SECONDS High PROTIME 24.9 LAB L300.4200 Normal INR 2.2 Performed By: #### L300.3900 #### [facility] [address] [place], [address] CARDIOLOGY VISIT Observed: 10/27/2018 Status: F Source: [place] REPORT 7:27 AM [facility] REPOSITORY [facility] [address] [place], [place] [address]. [address] [place] [address] OFFICE VISIT Date of Service: 10/25/18 MR#: [id number] Acct: [id number] Name: JANES LANDRY Joslyn Rep #: [id number] : 1965 Provider: Tracey Tabor Age/Sex: 53/M Location: [facility] [place] Status: Signed HPI HPI Chief Complaint: Follow-up visit. Details: JANES LANDRY, is a 53 M who presents to the office today for an urgent appointment. He was at [facility] emergency room last night for chest discomfort. Patient does have a history of atrial fibrillation. He was just in to see Dr. Borrero last week. It was discussed that we would increase his metoprolol continue to monitor. If he remained in atrial fibrillation next month would consider a cardioversion. Pt sts that he has been under a lot of stress over the last week. He has worked long hours. He sts that on Wednesday that he felt like he could not get a deep breath/get enough air. He has been using his CPAP. He then noted that chest was tight and that his muscles were sore in his back. He was concerned about having a SC. He went to [facility] ER. He was evaluated there for CP. He is concerned that about a possible tooth infection. He is concerned about this because he had bacterial endocarditis in the past from a tooth infection. Intake Vital Signs10/25/18 Body Mass Index (BMI) 39.3 10/25/18 Height 5 ft 10 in 10/25/18 Weight: 277 lb 10/25/18 Body Mass Index (BMI) 39.7 10/25/18 Blood Pressure 116/72 Intake Visit Reasons: [facility] ER 10/22/18 Equipment Tech Required: No Accompanied by: None Is patient in pain?: No Allergies amoxicillin trihydrate [From Augmentin] Adverse Reaction (Verified 10/25/18 09:20) Nausea/Vom/Diarrhea potassium clavulanate [From Augmentin] Adverse Reaction (Verified 10/25/18 09:20) Nausea/Vom/Diarrhea Medications aspirin 81 mg tablet,delayed release 81 mg PO QDAY tab 01/12/18 [History Confirmed 10/25/18] warfarin 5 mg tablet 5 mg PO .COMPLEX #60 tab 09/13/18 [Rx Confirmed 10/25/18] levalbuterol HFA 45 mcg/actuation aerosol inhaler 2 inh INHALATION Q6H #15 g 09/16/18 [Rx Confirmed 10/25/18] metoprolol succinate ER 100 mg tablet,extended release 24 hr 100 mg PO DAILY #90 tab 10/11/18 [Rx Confirmed 10/25/18] amiodarone 200 mg tablet 200 mg PO QDAY tab 10/25/18 [History] furosemide 40 mg tablet 40 mg PO DAILY #30 tab 10/25/18 [Rx Confirmed 10/25/18] Ejection fraction %: 45 to 49 PFSH 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) Umbilical hernia without obstruction or gangrene (Resolved) Bacterial endocarditis (Chronic 2004) Pulmonary embolism (Chronic) Nicotine dependence (Chronic) Rapid palpitations (Resolved) Dyspnea on exertion (Chronic) Obesity (BMI 30.0-34.9) (Chronic) Preop cardiovascular exam (Resolved) New onset atrial fibrillation (Chronic) Acid reflux (Resolved) Colon polyps (Resolved) Duodenal ulcer (Resolved) Umbilical hernia (Resolved) history of colon perforation (Resolved) Surgical History H/O umbilical hernia repair (Resolved 01/2018) History of colon resection (Resolved 1994) Family History Mother Diabetes Heart disease atrial fib, hx ablation Thyroid disorder CAD (coronary artery disease) CABG Grandfather Myocardial infarction Father Cancer bladder Social History Smoking Status: Current every day smoker tobacco type: cigarettes alcohol intake: current alcohol intake frequency: a few times a month Alcohol type: beer substance use type: former substance user Date of last use: 2016 marijuana, cocaine in 20s, marijuana, crack/cocaine caffeine: Yes Type: coffee Number of servings: 3 what type of physical activity do you participate in: none seatbelt use: always do you feel safe at home: Yes ROS Const Const: Negative for fatigue, weakness, night sweats, excessive sweating, frequent falls, headache(s) or daytime sleepiness Eyes Eyes: Negative for loss of peripheral vision, transient loss of vision, blind spots, double vision or blurry vision ENT ENT: Negative for headache(s) or balance problems Cardio Chest Pain: Yes Palpitations: No Edema: None Muscle aches with walking: None Resp Respiratory: Positive for SOB orthopnea\SOB lying down and SOB with activity; negative for SOB at rest, Cough or paroxysmal nocturnal dyspnea GI GI: Negative nausea, vomiting, heartburn, black,tarry stools or bright, red blood in stools : Negative for hematuria Musc Musc: Negative for balance problems, muscle aches/ myalgia, muscle weakness or joint pain Skin Skin: Negative non-healing lesions, unusual bruising or rash Neuro Neuro: Negative for weakness, frequent falls, headache(s), double vision or blurry vision Harjinder Hematologic/Lymphatic: Negative for easy bruising or easy bleeding Endo Endo: Negative for fatigue or excessive sweating Psych Psych: Negative for anxiety or depression Allergy Allergy/Immunology: Negative for rash Cardiology Exam Const Appearance: cooperative, healthy appearing, well developed, well groomed and no acute distress Nutritional Appearance: well nourished and average body habitus Orientation: alert, awake and oriented x3 Head Head: normal to inspection, normocephalic and atraumatic Ears: hearing grossly normal bilaterally and external ears normal Nose: external nose normal, nasal mucous membranes and turbinates normal, nares normal, septum normal, no nasal discharge Face and Sinus: face symmetric Mouth: oral mucosae normal, tongue normal, oropharynx normal and moist mucous membranes Teeth and gingiva: dentition normal Throat: posterior oropharynx normal, tonsils normal and uvula midline Eyes General: appearance normal, both eyes and all related structures Eyelids: eyelids normal Conjunctivae: conjunctivae normal Pupils: PERRL, normal by confrontation and accommodation normal EOM: EOM intact bilaterally Neck Neck: normal visual inspection, trachea midline and no JVD JVD: +5 Carotids: normal carotid upstroke and bounding pulses Chest Chest inspection: normal inspection of the chest, symmetric chest movement and normal respiratory effort Auscultation: Bilateral: Clear to Auscultation Cardio Palpation: normal PMI Rhythm: irregular rhythm Heart sounds: S1 normal and S2 normal GI GI: normal to inspection, soft, no hepatosplenomegaly and bowel sounds present Neuro General: alert, awake, oriented x3, no focal sensory deficit, gait normal and moves all extremities Skin Skin: no rashes or lesions noted Extremities Pulses: Normal: Right Femoral Pulse, Left Femoral Pulse, Right Dorsalis Pedis Pulse, Left Dorsalis Pedis Pulse, Right Posterior Tibial Pulse, Left Posterior Tibial Pulse, Right Radial Pulse, Left Radial Pulse Lower Extremity Edema: None: Bilateral Musculoskel Musculoskeletal: No joint tenderness Psych Psychological: normal affect Assessment AND Plan 1. Dyspnea on exertion R06.09 Plan - ÁNGEL Rodriguez Pt symptoms seem to correlate with his Afib and with his recent increase in his Toprol. BNP was slightly elevated during his ER visit. Would like to start pt on lasix 40 mg daily to see if this helps. If his SOB continues will plan for a cardioversion at his next OV in 2 weeks. 2. Persistent atrial fibrillation I48.1 Plan - ÁNGEL Rodriguez Initially pt was not symptomatic with his afib. He is currently on amiodarone, toprol and coumadin. He has been compliant with his CPAP. If he continues with his Atrial fib after increasing his toprol last week will plan for a cardioversion after his next appt in 2 weeks. 3. Bacterial endocarditis, unspecified chronicity I33.0 Plan - ÁNGEL Rodriguez With his hx of endocarditis, pt is concerned about a possible tooth infection. Will obtain a CBC, if elevated will treat. Also advised to contact Dentist, he was made aware that if his dentist would like to pull his tooth he needs to contact out office as we are planning on a cardioversion. Plan Detail Other Orders Orders: Other Medications New: Additional Comments - ÁNGEL Rodriguez The above patient was discussed with Dr. Borrero, he agrees with plan of care. Thank you for allowing us to participate in patient's plan of care, if you have any questions please do not hesitate to call. This note was generated using a voice recognition system and there may be incorrect words, spelling or punctuation errors that were not noted when reviewing the office note prior to saving. Follow Up 10/25/18 (keep as is) Coding Level of Care Code Off vis,est,level 4 Diagnoses Dyspnea on exertion R06.09 Persistent atrial fibrillation I48.1 Atrial fibrillation type: persistent Bacterial endocarditis, unspecified chronicity I33.0 Chronicity: unspecified Coding Level of Care Code Off vis,est,level 4 Diagnoses Dyspnea on exertion R06.09 Persistent atrial fibrillation I48.1 Atrial fibrillation type: persistent Bacterial endocarditis, unspecified chronicity I33.0 Chronicity: unspecified 10/26/18 1315 <Electronically signed by Tracey NEAL> Date Tracey NEAL 10/27/18 0727<Electronically signed by Julio Borrero MD> Cosigner Signature: Date (if applicable) Julio Borrero MD CC: Krishna Mendoza MD CBC W/DIFF, AUTOMATED Collected: 10/25/2018 Status: F Source: [place] 10:57 AM [facility] REPOSITORY TYPE CODE TESTS RESULT OUT OF RANGE REFERENCE UNITS LAB L100.1000 4.4-11.0 K/mm3 Normal WBC 10.8 LAB L100.1200 4.6-6.2 M/mm3 Normal RBC 5.00 LAB L100.1300 13.0-16.5 g/dl Normal HGB 15.0 LAB L100.1400 40-54 % Normal HCT 45.0 LAB L100.1500 80-94 fL Normal MCV 90.0 LAB L100.1600 27.0-32.0 pg Normal MCH 30.0 LAB L100.1700 32-36 g/gl Normal MCHC 33.3 LAB L100.1810 11.6-14.6 % Normal RDW CV 13.9 LAB L100.1820 35.1-43.9 fl High RDW SD 45.7 LAB L100.1900 150-450 K/mm3 Normal PLT 278 LAB L100.2000 6.2-12.0 fl Normal MPV 10.8 LAB L100.2100 47-70 % Normal NEUT% 57.3 LAB L100.2200 19-41 % Normal LY% 34.5 LAB L100.2300 0-10 % Normal MONO% 6.0 LAB L100.2400 0-5 % Normal EO% 1.5 LAB L100.2500 0-1 % Normal BASO% 0.4 LAB L100.2550 0.0-0.9 % Normal IM GRAN % 0.300 Result Comment: IG% - Immature Granulocytes (promyelocytes, myelocytes and metamyelocytes) > 1% indicates that a LEFT SHIFT is Present. LAB L100.2620 2.0-7.7 X10 3/uL Normal Absolute Neut 6.2 LAB L100.2720 0.83-4.51 X10 3/ul Normal Absolute Lymph 3.71 Performed By: #### L100.0100 #### [facility] [address] [place], [address] PROTHROMBIN TIME W/INR Collected: 10/25/2018 Status: F Source: [place] 10:[address] [facility] TYPE CODE TESTS RESULT OUT OF RANGE REFERENCE UNITS LAB L300.4150 11.7-14.9 SECONDS High PROTIME 23.8 LAB L300.4200 Normal INR 2.1 Performed By: #### L300.3900 #### [facility] [address] [place], [address] CHEST 1 VIEW Observed: 10/23/2018 Status: F Source: [place] 3:[address] [address] Patient: MARICRUZ LANDRY Phone#: : 1965 Age: 53 Gender: M Pt. Type: ER Account: [id number] Location: [facility] Ordering: HUNG BASURTO Exam Date: 10/23/2018/2:54 Family Phys: KAUR BENNETT Charge Code: 928492 Physician: [place] Order #: [id number] DLP Dose#: PROCEDURE: X-RAY CHEST 1 VIEW COMPARISON: None. INDICATIONS: Chest pain FINDINGS: LUNGS: Normal. No significant pulmonary parenchymal abnormalities. VASCULATURE: Normal. Unremarkable pulmonary vasculature. CARDIAC: Normal. No cardiac silhouette abnormality or cardiomegaly. MEDIASTINUM: Normal. No visible mass or adenopathy. PLEURA: Normal. No effusion or pleural thickening. BONES: Normal. No fracture or visible bony lesion. OTHER: Monitor leads project across the thorax. CONCLUSION: No acute disease. Dictated by: Blanca Orona MD on 10/23/2018 at 10:36 Approved by: Blanca Orona MD on 10/23/2018 at 10:36 CBC Collected: 10/23/2018 Status: F Source: [place] 2:55 AM [facility] TYPE CODE TESTS RESULT OUT OF RANGE REFERENCE UNITS LAB CBC(LOINC) CBC Result Comment: CBC-COMPLETE BLOOD COUNT LAB WBC(LOINC) 4.5 - 10.8 x 10EE3/UL WBC High 11.8 LAB RBC(LOINC) 4.50 - x 10EE6/UL 6.00 RBC 4.71 LAB HEMOGLOBIN(LOINC 13.0 - g/dl ) 17.5 HEMOGLOBIN 14.3 LAB HEMATOCRIT(LOINC 40.0 - % ) 52.0 HEMATOCRIT 42.0 LAB MCV(LOINC) 81 - 98 fl MCV 89 LAB MCH(LOINC) 27 - 33 pg MCH 30 LAB MCHC(LOINC) 32 - 36 X10 3 MCHC 34 LAB RDW/CV(LOINC) 12.0 - % 15.6 RDW/CV 14.1 LAB PLATELET(LOINC) 150 - 450 x10EE3/UL PLATELET 251 LAB MPV(LOINC) 6.4 - 10.5 fl MPV 9.0 Result Comment: AUTOMATED DIFFERENTIAL LAB NEUT %(LOINC) 46.0 - 76.0 % NEUT % 52.4 LAB LYMPH %(LOINC) 20.0 - 45.0 % LYMPH % 36.6 LAB MONOS %(LOINC) 0.0 - 10.0 % MONOS % 8.5 LAB EO %(LOINC) 0.0 - 7.0 % EO % 1.6 LAB BASO %(LOINC) 0.0 - 2.0 % BASO % 0.9 LAB Lymph #(LOINC) 0.80 - 2.80 x10EE3/U L Lymph # High 4.30 LAB Neut #(LOINC) 1.50 - 7.10 x10EE3/U L Neut # 6.20 LAB [place] #(LOINC) 0.20 - 1.00 x10EE3/U L [place] # 1.00 LAB EO #(LOINC) 0.00 - 0.50 x10EE3/U L EO # 0.20 LAB Baso #(LOINC) 0.00 - 0.10 x10EE3/U L Baso # 0.10 LAB MANUAL DIFF(LOINC) MANUAL DIFF N/A LAB MORPHOLOGY(LOINC ) MORPHOLOGY N/A Result Comment: {CD] Performed By: #### [id number] #### [facility],[address] [place] [id number] D-DIMER, QUANTITATIVE Collected: 10/23/2018 Status: F Source: [facility] 2:55 AM [facility] REPOSITORY TYPE CODE TESTS RESULT OUT OF REFERENCE UNITS RANGE LAB D-DIMER, QUANTITATI VE(LOINC) D-DIMER, QUANTITATIVE Result Comment: QUANT D-DIMER LAB D-DIMER QUANT(LOINC) 0 - 230 ng/ml D-DIMER QUANT 159 Performed By: #### [id number] #### [place] [address] TROPONIN Collected: 10/23/2018 Status: F Source: [facility] 2:55 [facility] REPOSITORY TYPE CODE TESTS RESULT OUT OF REFERENCE UNITS RANGE LAB TROPONIN 0.00 - 0.05 ng/ml I(LOINC) TROPONIN I <0.01 Result Comment: Elevated troponin (above the 99th percentile) usually indicates myocardial ischemia. Results must be interpreted within the clinical setting. 1.Non-ischemic pathology can also cause elevated troponin levels (e.g., acute pulmonary embolism, myocarditis, pericarditis, heart failure, intracranial injury, rhabdomyolisis, sepsis, shock and renal insufficiency). 2.Approximately 1% of healthy adults have elevated troponin levels. 3.Analytical false positive results rarely occur(due to multiple interferences such as heterophile antibodies). Performed By: #### [id number] #### [facility],[address] [place] [address] CMP WITH EGFR Collected: 10/23/2018 Status: F Source: [facility] 2:[address] [place] [address] REPOSITORY TYPE CODE TESTS RESULT OUT OF RANGE REFERENCE UNITS LAB CMP with eGFR(LOINC) CMP with eGFR Result Comment: COMPREHENSIVE METABOLIC PANEL LAB SODIUM(LOINC) 136 - 145 mmol/l SODIUM 137 LAB POTASSIUM(LOINC) 3.5 - 5.1 mmol/L POTASSIUM 3.9 LAB CHLORIDE(LOINC) 98 - 107 mmol/L CHLORIDE 105 LAB CO2(LOINC) 21.0 - mmol/L 31.0 CO2 24.4 LAB GLUCOSE(LOINC) 74 - 106 mg/dl GLUCOSE 97 LAB BUN(LOINC) 6 - 20 mg/dl BUN 14 LAB CREATININE(LOINC) 0.7 - 1.3 mg/dl CREATININE 0.9 LAB AST/SGOT(LOINC) 13 - 39 U/L AST/SGOT 15 LAB ALK PHOS(LOINC) 38 - 126 U/L ALK PHOS 74 LAB CALCIUM(LOINC) 8.6 - mg/dl 10.2 CALCIUM 9.0 LAB TOTAL PROTEIN(LOINC) 6.4 - 8.3 g/dl TOTAL PROTEIN 6.8 LAB ALBUMIN(LOINC) 3.4 - 4.8 g/dL ALBUMIN 4.1 LAB GLOBULIN(LOINC) 1.5 - 3.8 G/DL GLOBULIN 2.7 LAB A/G RATIO(LOINC) 0.9 - 1.6 A/G RATIO 1.5 LAB TOTAL BILI(LOINC) 0.0 - 1.5 mg/dl TOTAL BILI 0.3 LAB B/C RATIO(LOINC) 0 - 30 ratio B/C RATIO 16 LAB ALT/SGPT(LOINC) 10 - 40 U/L ALT/SGPT 17 LAB ANION GAP(LOINC) 10 - 20 mmol/L ANION GAP 12 LAB AGE(LOINC) years AGE 53 LAB eGFR(LOINC) 60 - 999 ML/MINUTE eGFR >60 LAB eGFR(AA)(LOINC) 60 - 999 ML/MINUTE eGFR(AA) >60 Result Comment: ACCORDING TO THE NATIONAL KIDNEY DISEASE EDUCATION PROGRAM(NKDE), A NORMAL eGFR IS A VALUE GREATER THAN OR EQUAL TO 60 ML/MIN/1.73 SQ METERS. CHRONIC KIDNEY DISEASE: <60mL/MIN/1.73 SQ METERS KIDNEY FAILURE: <15mL/MIN/1.73 SQ METERS THIS TEST SHOULD ONLY BE USED FOR PATIENTS 18 YEARS OF AGE AND OLDER. Performed By: #### [id number] #### [place] [address] MAGNESIUM Collected: 10/23/2018 Status: F Source: [facility] 2:55 AM [facility] REPOSITORY TYPE CODE TESTS RESULT OUT OF REFERENCE UNITS RANGE LAB MAGNESIUM( 1.6 - 2.6 mg/dl LOINC) MAGNESIUM 2.1 Performed By: #### [id number] #### [place] [address] BNP (B-TYPE NATRIURETIC Collected: 10/23/2018 Status: F Source: [facility] [facility]) 2:55 AM [facility] REPOSITORY TYPE CODE TESTS RESULT OUT OF RANGE REFERENCE UNITS LAB BNP(LOINC) 1 - 100 pg/ml High BNP 148 Performed By: #### [id number] #### [address] [place] [address] PROTHROMBIN TIME AND Collected: 10/23/2018 Status: F Source: [facility] INR 2:55 AM [facility] REPOSITORY TYPE CODE TESTS RESULT OUT OF REFERENCE UNITS RANGE LAB PROTHROMBIN TIME AND INR(LOINC) PROTHROMBIN TIME AND INR Result Comment: PROTHROMBIN TIME AND INR LAB PT-COUMADIN(LOINC) sec PT-COUMADIN 53.0 LAB INR(LOINC) 0.8 - 1.2 INR High Alert 4.7 Result Comment: { CALLED TO GEORGE @0412/ADL { READ BACK BY GEORGE RA@93511 { TEST REPEATED THE HEMOSIL THROMBOPLASTIN REAGENT USED IN THE PROTHROMBIN TIME TEST INTERACTS WITH THE DRUG CUBICIN (DAPTOMYCIN) AND WILL RESULT IN FALSELY ELEVATED PT / INR RESULTS INR INTERPRETATION INR INDICATION PREVENTION AND TREATMENT OF THROMBOEMBOLISM ASSOCIATED WITH: 2.0 - 3.0 ATRIAL FIBRILLATION, BIOPROSTHETIC HEART VALVES, PULMONARY EMBOLISM, VENOUS THROMBOSIS, SYSTEMIC EMBOLISM POST MYOCARDIAL INFARCTION 2.5 - 3.5 MECHANICAL HEART VALVES Performed By: #### [id number] #### [facility],[address] [place], [place] [id number] EMERGENCY REPORT Observed: 10/23/2018 Status: F Source: [facility] 2:28 AM [facility] EMERGENCY ROOM REPORT NAME ACCOUNT SEX AGE ADMIT DISCHARGE PT MED. RECORD# NUMBER DATE DATE TYPE MARICRUZ LANDRY [id number] M 53 10/23/18 10/23/18 3 [id number] ROOM: ER DATE OF : 1965 DICTATING PHYSICIAN: Hung Basurto Date seen is October 23, 2018 at 2:40 a.m. HISTORY OF PRESENT ILLNESS: This is a 53-year-old male complaining of some midsternal to left-sided chest pain described as chest tightness that started yesterday. He presently rates the tightness as a 9 on a severity scale of 1 to 10. He does admit to some associated shortness of breath with it. He states he noticed some swelling in his legs yesterday and his right leg is painful in the right posterior calf region. He states his shortness of breath was worse tonight, he felt like he could not get enough air. He states he has checked his blood pressure at home and he got all kinds of different readings. He does also complain of some diffuse generalized thoracic back pain, and he states he just has not been feeling good. PAST MEDICAL HISTORY: The patient has a past medical history of pulmonary embolism in 1994 after he had a polypectomy. He also developed pericarditis from having a tooth pulled in 2004. He has a history of obstructive sleep apnea and he does wear CPAP machine, and he has also been diagnosed with atrial fibrillation since January of this year. He was cardioverted and that only lasted about 1 day and then he went back into atrial fibrillation, so he is presently on Coumadin. He takes 10 mg daily except for the one day he takes 5 mg once a day. PAST SURGICAL HISTORY: Includes a hemorrhoid surgery. MEDICATIONS: Current medications include metoprolol 100 mg and Warfarin 10 mg daily with the exception of the one day during the week he takes 5 mg of Coumadin. He also takes a baby aspirin and he was just recently given an inhaler by his family doctor. ALLERGIES: No known drug allergies. SOCIAL HISTORY: He is a smoker, 2 packs per day, and he does admit to some alcohol use. Denies any drug use. He lives with family. REVIEW OF SYSTEMS: He does admit to chest pain and shortness of breath. Denies any cough, sputum, wheezing, abdominal pain, nausea, vomiting, diarrhea, constipation, melena, hematochezia, headache, numbness, unsteady gait. He does admit to some mild diffuse generalized weakness and fatigue. Denies any neck pain, but does complain of some thoracic back pain. Denies any joint pain. Denies any skin rash, swelling, hives, hayfever, or swollen glands. Further review of systems is negative. Page 1 of 3 MARICRUZ LANDRY Emergency Room Report PHYSICAL EXAMINATION: Vital signs: Blood pressure 122/81, pulse 89, respirations 18, temperature 97.2, pulse ox 98%, weight 270 pounds. The patient is alert and oriented x3. He presently appears in no acute distress. He is pleasant and cooperative. HEENT: Head appears atraumatic. Pupils are equal and reactive to light. Red reflex intact bilaterally. Extraocular muscles are intact. No conjunctival injection. Nose: Exhibits no rhinorrhea or epistaxis. Mouth: Mucous membranes are moist. No pharyngeal erythema. Uvula is midline and elevates. Neck is supple. Trachea is midline. No JVD or lymphadenopathy. No posterior cervical tenderness. No nuchal rigidity. Lungs: Clear to auscultation in all lung nair. No adventitious sounds are noted. No anterior chest wall tenderness. CV: Heart rate and rhythm is mildly irregular. No murmur noted. Abdomen is soft and nontender with normoactive bowel sounds x4 quadrants. No guarding or rigidity. No rebound. No palpable abdominal masses. No hepatosplenomegaly. Back exhibits no midline or paraspinal region tenderness. No increased paraspinal muscle rigidity. Negative Wilmer's sign. Extremities: No edema or cyanosis. Peripheral pulses are intact. No motor or sensory deficits are noted. I do note some palpable tenderness with palpation of the right posterior calf in his right lower leg. Skin is warm and dry. No diaphoresis or rash. Neurologic examination shows the patient to be alert and oriented x4. No motor or sensory deficits noted. Normal speech. No conversational dyspnea. The patient is pleasant and cooperative with normal affect. DIAGNOSTIC DATA: EKG done at 2:38 a.m. shows atrial fibrillation with a variable AV block, rate is 86 beats per minute. Hol[place] is approximately 10 degrees. I do have a previous EKG on this patient from January of 2018, which did show atrial fibrillation with a heart rate of 114 beats per minute. I did review the patient's stress test. He had a stress test back in January of this year that showed no evidence of an inducible ischemia. The electrocardiographic portion of his stress test showed atrial fibrillation while he was in the study, but it was a negative Lexiscan EKG stress test for ischemia. He also had an echocardiogram on January 18 of this year which showed some mild concentric left ventricular hypertrophy with low normal left and systolic function, ejection fraction of 45 to 50%. EMERGENCY DEPARTMENT COURSE AND TREATMENT: The patient does see Dr. Saldana and Dr. Borrero for Cardiology at [facility]. He does not have a primary care physician. PLAN/DISPOSITION: Presently at this point, I do not have a cardiac workup pending and we will get a D-dimer as well. The patient states he had a pulmonary embolism in the past, I believe it was 1994, after having a polypectomy. We will then reevaluate. Dictated By: Hung Basurto DO 10/23/18 03:11 JOB #: [id number] Transcribed By: am Page 2 of 3 MARICRUZ LANDRY Emergency Room Report 10/23/18 17:40 Electronically signed by: E-Sign: Dr. Hung Basurto D.O. 10/24/18 03:27 Page 3 of 3 MARICRUZ LANDRY Emergency Room Report EMERGENCY REPORT Observed: 10/23/2018 Status: F Source: [facility] [place] 2:28 AM [facility] EMERGENCY ROOM REPORT NAME ACCOUNT SEX AGE ADMIT DISCHARGE PT MED. RECORD# NUMBER DATE DATE TYPE MARICRUZ LANDRY [id number] M 53 10/23/18 10/23/18 3 [id number] ROOM: ER DATE OF : 1965 DICTATING PHYSICIAN: Hung Basurto ADDENDUM: DIAGNOSTIC DATA: Chest x-ray showed no acute infiltrate or failure. His EKG was repeated at 3:52 a.m. and it shows atrial flutter at a rate of 73 beats per minute with no acute ST segment changes noted, axis is approximately 10 degrees. White count was 11.8, hemoglobin 14.3, hematocrit 42.0, platelet count 251,000. PT was 53. INR was 4.7. D-dimer was normal at 159. Magnesium was 2.1. BNP was 148. Troponin was less than 0.01. Sodium 137, potassium 3.9, chloride 105, CO2 24.4, BUN 14, creatinine 0.9, glucose 97. AST was 15, ALT 17, alkaline phosphatase 74. Total bilirubin was 0.3. EMERGENCY DEPARTMENT COURSE AND TREATMENT: The patient did explain to me that he has been under a lot of stress lately and so he has been smoking a lot more than his usual. He has been smoking up to 2 packs per day. He has been smoking most of his life so I am sure he does have some COPD; although, he has not really been diagnosed with that. I did give him an albuterol aerosol treatment here. He does have an inhaler at home that he takes and he did feel somewhat better with that. DIAGNOSES: 1. Chest pain. 2. Acute exacerbation of chronic obstructive pulmonary disease. 3. Chronic atrial fibrillation. PLAN/DISPOSITION: I discussed options with him including we could admit him for further workup for the chest pain. He had the normal stress test here in January, so probably the next step would be a heart catheterization, and he would have to go to [facility] for that. He states he really does not feel bad enough that he wants to go through all that at this point. He just wanted to come in and get checked tonight and make sure that everything we could do here looked okay. Since it does, he wants to go home and he will call his manufacturing chief engineer up in [place] on Wednesday to arrange follow up. He sees Dr. Saldana and Dr. Borrero for cardiology up in [place]. I did give him a copy of his laboratory slip that shows his INR at 4.7. He is going to discuss that with them as well. Wednesday is the day that he takes his half dose Coumadin, so at this point I did not feel it was relevant to start adjusting his Coumadin dose. He can discuss that with his manufacturing chief engineer. At this time, the patient wants to go home, so I will discharge him home in a Page 1 of 2 MARICRUZ LANDRY Emergency Room Report clinically stable condition. We did talk about doing a venous Doppler of his right leg, but I cannot get that done until tomorrow as an outpatient or later today as an outpatient, but I cannot get it done in the middle of the night. With his INR being elevated, it makes it less likely it would be a DVT. At this point, the patient states that he would just rather go home and see how he does. I have advised him to make sure he does use his inhalers 2 puffs every 6 hours, and if his symptoms become worse or any other problems develop return here to the emergency department. The patient was discharged in a clinically stable condition. Nursing notes reviewed. He does not have a primary care physician, so I am going to refer him to [facility] for follow up for a PCP. Dictated By: Hung Basurto DO 10/23/18 04:56 JOB #: [id number] Transcribed By: am 10/23/18 18:39 Electronically signed by: E-Sign: Dr. Hung Basurto D.O. 10/24/18 03:27 Page 2 of 2 MARICRUZ LANDRY Emergency Room Report PROTHROMBIN TIME W/INR Collected: 10/11/2018 Status: F Source: [place] 12:59 PM [facility] REPOSITORY TYPE CODE TESTS RESULT OUT OF RANGE REFERENCE UNITS LAB L300.4150 11.7-14.9 SECONDS High PROTIME 29.1 LAB L300.4200 Normal INR 2.7 Performed By: #### [id number] #### [facility] [address] [place], [address] CARDIOLOGY VISIT Observed: 10/11/2018 Status: F Source: [place] REPORT 12:31 PM [facility] REPOSITORY [facility] [address] [place] [address] OFFICE VISIT Date of Service: 10/11/18 MR#: [id number] Acct: [id number] Name: JANES LANDRY Rep #: [id number] : 1965 Provider: Julio Borrero MD Age/Sex: 53/M Location: [facility] Status: Signed HPI HPI Chief Complaint: Follow-up visit. Details: JANES LANDRY, is a 53 M who presents to the office today for a follow-up visit. He is a gentleman who was noted to be in atrial for ablation with rapid ventricular response rate during an EKG which was performed prior to hernia surgery. He was evaluated with an echocardiogram and a stress test both of which were normal. He underwent DC cardioversion in March but it appears that he has reverted back to atrial fibrillation. He has been using his CPAP mask. He denies any neck arm or jaw discomfort suggest angina no dizziness or diaphoresis no near syncope or syncope. His physical exam today demonstrates clear lung nair irregular regular heart rate and no pedal edema his electrocardiogram confirms atrial fibrillation with a rate of 93 bpm and no acute changes. Intake Vital Signs10/11/18 Height 5 ft 10 in 10/11/18 Weight: 274 lb 10/11/18 Body Mass Index (BMI) 39.3 10/11/18 Blood Pressure 110/62 10/11/18 Blood Pressure Location Lt brachial Intake Visit Reasons: 7 m fu Equipment Tech Required: No Accompanied by: none Is patient in pain?: No Allergies amoxicillin trihydrate [From Augmentin] Adverse Reaction (Verified 10/11/18 12:00) Nausea/Vom/Diarrhea potassium clavulanate [From Augmentin] Adverse Reaction (Verified 10/11/18 12:00) Nausea/Vom/Diarrhea Medications aspirin 81 mg tablet,delayed release 81 mg PO QDAY tab 01/12/18 [History Confirmed 10/11/18] amiodarone 200 mg tablet 200 mg PO QDAY #90 tab 05/13/18 [Rx Confirmed 10/11/18] warfarin 5 mg tablet 5 mg PO .COMPLEX #60 tab 09/13/18 [Rx Confirmed 09/16/18] levalbuterol HFA 45 mcg/actuation aerosol inhaler 2 inh INHALATION Q6H #15 g 09/16/18 [Rx Confirmed 10/11/18] metoprolol succinate ER 100 mg tablet,extended release 24 hr 100 mg PO DAILY #90 tab 10/11/18 [Rx Confirmed 10/11/18] PFS 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) Umbilical hernia without obstruction or gangrene (Acute) Bacterial endocarditis (Chronic 2004) Pulmonary embolism (Chronic) Nicotine dependence (Chronic) Rapid palpitations (Acute) Dyspnea on exertion (Acute) Obesity (BMI 30.0-34.9) (Chronic) Preop cardiovascular exam (Acute) New onset atrial fibrillation (Chronic) Acid reflux (Acute) Colon polyps (Acute) Duodenal ulcer (Acute) Umbilical hernia (Acute) history of colon perforation (Acute) Surgical History H/O umbilical hernia repair (Resolved 01/2018) History of colon resection (Acute) Family History Mother Diabetes Heart disease atrial fib, hx ablation Thyroid disorder CAD (coronary artery disease) CABG Grandfather Myocardial infarction Father Cancer bladder Social History Smoking Status: Current every day smoker tobacco type: cigarettes alcohol intake: current alcohol intake frequency: a few times a month Alcohol type: beer substance use type: former substance user Date of last use: 2016 marijuana, cocaine in 20s, marijuana, crack/cocaine caffeine: Yes Type: coffee Number of servings: 3 what type of physical activity do you participate in: none seatbelt use: always do you feel safe at home: Yes ROS Const Const: Negative for fatigue, weakness, night sweats, excessive sweating, frequent falls, headache(s) or daytime sleepiness Eyes Eyes: Negative for loss of peripheral vision, transient loss of vision, blind spots, double vision or blurry vision ENT ENT: Negative for headache(s), dizziness, balance problems, Nosebleed/epistaxis, tongue swelling or lip swelling Cardio Chest Pain: No Palpitations: No Edema: None Muscle aches with walking: None Resp Respiratory: Negative for SOB at rest, SOB orthopnea\SOB lying down, Cough, paroxysmal nocturnal dyspnea or SOB with activity GI GI: Negative nausea, vomiting, heartburn, black,tarry stools or bright, red blood in stools : Negative for hematuria Musc Musc: Negative for balance problems, muscle aches/ myalgia, muscle weakness or joint pain Skin Skin: Negative non-healing lesions, unusual bruising or rash Neuro Neuro: Negative for weakness, frequent falls, headache(s), double vision, dizziness, lightheadedness, orthostatic symptoms, blurry vision or lack of coordination Harjinder Hematologic/Lymphatic: Negative for easy bruising or easy bleeding Endo Endo: Negative for fatigue, excessive sweating, cold intolerance, heat intolerance, increased thirst/drinking or hair loss Psych Psych: Negative for anxiety or depression Allergy Allergy/Immunology: Negative for throat swelling, Negative for tongue swelling, Negative for hives, Negative for rash, Negative for lip swelling Cardiology Exam Const Appearance: cooperative, healthy appearing, well developed, well groomed and no acute distress Nutritional Appearance: well nourished and average body habitus Orientation: alert, awake and oriented x3 Head Head: normal to inspection, normocephalic and atraumatic Ears: hearing grossly normal bilaterally and external ears normal Nose: external nose normal, nasal mucous membranes and turbinates normal, nares normal, septum normal, no nasal discharge Face and Sinus: face symmetric Mouth: oral mucosae normal, tongue normal, oropharynx normal and moist mucous membranes Teeth and gingiva: dentition normal Throat: posterior oropharynx normal, tonsils normal and uvula midline Eyes General: appearance normal, both eyes and all related structures Eyelids: eyelids normal Conjunctivae: conjunctivae normal Pupils: PERRL, normal by confrontation and accommodation normal EOM: EOM intact bilaterally Neck Neck: normal visual inspection, trachea midline and no JVD JVD: +5 Carotids: normal carotid upstroke and bounding pulses Chest Chest inspection: normal inspection of the chest, symmetric chest movement and normal respiratory effort Auscultation: Bilateral: Clear to Auscultation Cardio Palpation: normal PMI Rhythm: irregular rhythm Heart sounds: S1 normal and S2 normal GI GI: normal to inspection, soft, no hepatosplenomegaly and bowel sounds present Neuro General: alert, awake, oriented x3, no focal sensory deficit, gait normal and moves all extremities Skin Skin: no rashes or lesions noted Extremities Pulses: Normal: Right Femoral Pulse, Left Femoral Pulse, Right Dorsalis Pedis Pulse, Left Dorsalis Pedis Pulse, Right Posterior Tibial Pulse, Left Posterior Tibial Pulse, Right Radial Pulse, Left Radial Pulse Lower Extremity Edema: None: Bilateral Musculoskel Musculoskeletal: No joint tenderness Psych Psychological: normal affect Assessment AND Plan 1. New onset atrial fibrillation I48.91 Plan He does have a history of atrial fibrillation which at this time appears to be persistence. He has been started on amiodarone which will be continued. I am also suggesting that we increase his Toprol to 100 mg a day. He will remain on his Coumadin maintaining an INR of 2-3. I like to see him again in a month if he is remaining in atrial fibrillation then we would consider DC cardioversion. His last echocardiogram from January 2018 demonstrated an ejection fraction of 45-50%. I have explained the above to him he understands and agrees to proceed. Orders Orders: Plan Detail Other Medications New: Discontinued: Follow Up 1 Month (jhr) Coding Level of Care Code Off vis,est,level 4 Diagnoses New onset atrial fibrillation I48.91 Coding Level of Care Code Off vis,est,level 4 Diagnoses New onset atrial fibrillation I48.91 10/11/18 1231 <Electronically signed by Julio Borrero MD> Date Julio Borrero MD Cosigner Signature: Date (if applicable) CC: Krishna Mendoza MD 12 LEAD EKG PERFORMED Observed: 10/11/2018 Status: F Source: [place] BY KELY 12:02 PM [facility] REPOSITORY [facility] [address] [place] [address] 12 Lead EKG performed by KELY 10/11/18 1201 MR#: [id number] Acct: [id number] Name: JANES LANDRY Rep #: [id number] : 1965 53 From: Julio Borrero MD Attending Dr: Julio Borrero MD Status: DEP AMB Ordering Dr: Julio Borrero MD Date: 10/11/18 Location: [facility] Sex: M C Admitted: BMS/12 Lead EKG performed by [facility] ECG Report Interpretation Atrial fibrillation ABNORMAL RHYTHMElectronically signed on 10/12/2018 at 16:32 by Julio Borrero [employer] Version [id number] 10/12/18 1636 Date Julio Borrero MD CC: Krishna Mendoza MD Date Dictated: 10/11/18 120 Date Transcribed: 10/11/181200 Chess Instructor: [place] Signed PULMONARY VISIT REPORT Observed: 09/16/2018 Status: F Source: [place] 3:52 PM [facility] REPOSITORY [facility] [address] [place], [place] [address] OFFICE VISIT Date of Service: 09/16/18 MR#: [id number] Acct: [id number] Name: JANES LANDRY Rep #: [id number] : 1965 Provider: Edelmira Saldana Age/Sex: 53/M [place] [facility] Status: Signed Assessment AND Plan 1. DONI (obstructive sleep apnea) G47.33 Plan Patient is benefiting from Pap therapy. He is now able to resume compliance. No indication for titration study at this time. Continue to encourage weight loss. Contact the office for any new or worsening symptoms in the meantime. Follow-up in 2 mos. 2. Cigarette nicotine dependence without complication F17.210 Plan Encourage weight loss. 3. Obesity (BMI 30.0-34.9) E66.9 Plan Detail Other Medications New: Follow Up 2 Months (DMB) HPI 2 MO F/U, MISSED SPT W/ : Chief Complaint: day time hypersomnia HPI Comments Details: This is a 53 year old M,here to follow up for sleep apnea. He states he has been dealing with an ongoing respiratory infection that has affected his ability to tolerate PAP therapy. He was treated with an antibiotic, it did not resolve his symptoms. He was then treated with prednisone. He has noticed that since he has not been using his PAP he is more tired. He is highly motivated to get back to compliance. He denies any shortness of breath. He still has an occasional cough, mostly nonproductive. He has wheezing at night when he lies down. He has been on albuterol HFA in the past that is helpful with the wheezing but it causes fast heart rate and palpitations. He denies any hemoptysis. He denies any chest pain. He also denies any fever, chills or body aches. He continues to smoke 1 PPD. Current use of pressure support therapy is on average of 1 hours per night with current settings of 17 cmH2O. JANES is experiencing daytime somnolence, dry mouth in the morning, nocturia, and difficulty with mask leaks. JANES reports feeling fatigued in the morning and would be benefitting from current therapy if he were compliant. Compliance report was reviewed and shows 20% compliance, AHI is controlled at an average of 0.9 events per hour but it does appear that leaks are a problem. Intake Vital Signs09/16/18 Height 5 ft 10 in 09/16/18 Weight: 270 lb Intake Visit Reasons: 2 MO F/U, MISSED SPT W/ [facility] [place] Vendor: Dr Lal [employer] Accompanied by: Self Allergies amoxicillin trihydrate [From Augmentin] Adverse Reaction (Verified 09/16/18 14:07) Nausea/Vom/Diarrhea potassium clavulanate [From Augmentin] Adverse Reaction (Verified 09/16/18 14:07) Nausea/Vom/Diarrhea Medications calcium carbonate 200 mg calcium (500 mg) chewable tablet 200 mg PO TID tab 12/22/17 [History Confirmed 09/16/18] aspirin 81 mg tablet,delayed release 81 mg PO QDAY tab 01/12/18 [History Confirmed 09/16/18] amiodarone 200 mg tablet 200 mg PO QDAY #90 tab 05/13/18 [Rx Confirmed 09/16/18] metoprolol succinate ER 50 mg tablet,extended release 24 hr 50 mg PO DAILY #90 tab 09/13/18 [Rx Confirmed 09/16/18] warfarin 5 mg tablet 5 mg PO .COMPLEX #60 tab 09/13/18 [Rx Confirmed 09/16/18] levalbuterol HFA 45 mcg/actuation aerosol inhaler 2 inh INHALATION Q6H #15 g 09/16/18 [Rx Confirmed 09/16/18] PFSH 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) Umbilical hernia without obstruction or gangrene (Acute) Bacterial endocarditis (Chronic 2004) Pulmonary embolism (Chronic) Nicotine dependence (Chronic) Rapid palpitations (Acute) Dyspnea on exertion (Acute) Obesity (BMI 30.0-34.9) (Chronic) Preop cardiovascular exam (Acute) New onset atrial fibrillation (Chronic) Acid reflux (Acute) Colon polyps (Acute) Duodenal ulcer (Acute) Umbilical hernia (Acute) history of colon perforation (Acute) Surgical History H/O umbilical hernia repair (Resolved 01/2018) History of colon resection (Acute) Family History Mother Diabetes Heart disease atrial fib, hx ablation Thyroid disorder CAD (coronary artery disease) CABG Grandfather Myocardial infarction Father Cancer bladder Social History Smoking Status: Current every day smoker tobacco type: cigarettes alcohol intake: current alcohol intake frequency: a few times a month Alcohol type: beer substance use type: former substance user Date of last use: 2016 marijuana, cocaine in 20s, marijuana, crack/cocaine caffeine: Yes Type: coffee Number of servings: 3 what type of physical activity do you participate in: none seatbelt use: always do you feel safe at home: Yes Review of Systems Const CONSTITUTIONAL: Positive fatigue; negative anorexia, body ache, chills, daytime sleepiness, fever(s), night sweats, oral thrush, stops breathing during sleep, weight loss, sleeping in chair, weight loss, weight gain, frequent colds, seasonal allergies, other, headache(s) or orthopnea EETM Ear Nose Throat Mouth: Positive hearing normal; negative hard of hearing, hoarseness, dry mouth in morning, change in vision, itchy eyes, eye pain, swallowing Difficulty, ear pain, nose bleed, headache(s), mouth pain, nasal congestion, nasal discharge, post nasal drip, sinus pain, sinus pressure, sore throat or other Cardio Cardiovascular: Negative chest pain, chest pain at rest, chest pain with activity, irregular heart rhythm, edema, shortness of breath when lying down, palpitations, murmur or other Resp Respiratory: Positive as per HPI, shortness of breath and cough cough: Positive non-productive; negative productive or increase in cough frequency; negative pain with cough, wheezing, chest congestion, chest tightness, pain on inspiration, inhalers, increase use of rescue inhalers, snoring, apnea or other Gastro Gastrointestional: Negative bloody stools, change in appetite, difficulty swallowing, reflux, hematemesis, melena stool, loose stool, constipation or other Genitourinary: Negative blood in urine, nocturia, pain with urination or other Musc Musculoskeletal: Negative body pain, back pain, neck pain or other Skin/Breast Skin/Breast: Negative dry skin, itching, rash, unusual bruising, breast lump or other Neuro Neurological: Negative restless legs, confusion, weakness or other Psych Psychocological: Negative abnormal sleep pattern, anxiety, thoughts of hurting self/others, hopelessness or other Lymph Lymphatic: Negative easy bleeding, easy bruising, swollen lymph nodes or other Exam Const Constitutional: Positive conversant, cooperative, in no acute respiratory distress, healthy appearing, well developed, well nourished, good hygiene, obese and smells of smoke Head Head: Positive normocephalic and atraumatic; negative cyanosis of lips/distal nose Eyes Eye: Positive clear conjunctiva; negative nystagmus or scleral abnormality Ears Ear: Positive hearing normal and external ears normal; negative hard of hearing Nose Nose: Positive external nose normal and no nasal discharge; negative epistaxis Mouth Mouth: Positive oral mucosae normal, no lesions, good dentition and posterior oropharynx is adequate; negative post nasal drip, malodorous breath or oral thrush present Mallampati Score: II: Mallampati Score Neck Neck: Positive normal visual inspection, full ROM and trachea midline; negative lymphadenopathy, JVD or tender Chest Wall Chest: Positive normal inspection of the chest and symmetric chest movement; negative increased A/P diameter Resp lung sounds: Positive clear to auscultation, good air exchange, normal expiratory time and normal respiratory effort; negative diminished, wheezes, rhonchi, rales, dullness to percussion or wheeze present on forced exhalation Cardio Cardiac: Positive regular rate, regular rhythm, S1 normal and S2 normal; negative murmur GI GI: Positive normal to inspection and obese; negative distended Genitourinary: Positive deferred Musc Musculoskeletal: Positive steady gait and ROM normal; negative kyphosis or scoliosis Skin Pulmonary Skin Exam: Positive intact; negative rash Pulses Pulse: Yes pulses normal x4 extremities Extremities Extremities: Yes capillary refill normal, No clubbing, No cyanosis, No edema Neuro Neurologic: Yes conversant, Yes no focal neuro deficits, Yes normal concentration, Yes understands questions, Yes cooperative, Yes normal cognition, Yes normal coordination Lymph Lymphatic: No lymphadenopathy, No tenderness, No cervical adenopathy Psych Appearance: Positive grossly normal, eye contact and well kempt Mental Status: Positive mental status grossly normal Mood: Positive congruent mood Affect: Positive normal affect Coding Level of Care Code Off vis,est,level 3 Diagnoses DONI (obstructive sleep apnea) G47.33 Cigarette nicotine dependence without complication F17.210 Nicotine product type: cigarettes Substance use status: uncomplicated Obesity (BMI 30.0-34.9) E66.9 09/16/18 1552 <Electronically signed by Edelmira DÍAZ> Date Edelmira DÍAZ Cosigner Signature: Date (if applicable) CC: Krishna Mendoza MD PROTHROMBIN TIME W/INR Collected: 09/14/2018 Status: F Source: [place] 2:42 PM [facility] REPOSITORY TYPE CODE TESTS RESULT OUT OF REFERENCE UNITS RANGE LAB L300.4150 11.7-14.9 SECONDS High PROTIME 36.2 LAB L300.4200 High alert INR 3.6 Result Comment: RESULTS CALLED TO DR HAND FILLING ROOM OPERATOR 09/14/18 1837 Pilar Apodaca. REPORT READ BACK BY SAME . Performed By: #### L300.3900 #### [facility] [address] [place], [address] PULMONARY VISIT REPORT Observed: 07/29/2018 Status: F Source: [place] 9:46 AM [facility] REPOSITORY [facility] [address] [place] [address] OFFICE VISIT Date of Service: 07/28/18 MR#: [id number] Acct: [id number] Name: JANES LANDRY Rep #: [id number] : 1965 Provider: Edelmira Saldana Age/Sex: 53/M Location: [facility] [place] Status: Signed Assessment AND Plan 1. DONI (obstructive sleep apnea) G47.33 Plan Patient is using and benefiting from Pap therapy. No indication for titration study at this time. Continue to encourage weight loss. Contact the office for any new or worsening symptoms in the meantime. Follow-up in [address] Esqueda 2. MONTANO (dyspnea on exertion) R06.09 Plan Plan to further evaluate his shortness of breath, given his current smoking status and smoking history, with a pulmonary function test to determine if the patient has COPD what degree. I would like the patient to wait a few weeks before having this pulmonary function test, as he is acutely like a true representation of his baseline respiratory function. He will then follow-up with Dr. Esqueda in approximately 2 months, at which time they can go over test results and determine if there are any inhalers that would be appropriate for the patient. He has been encouraged to contact the office with any new or worsening symptoms in the meantime. Would like to treat him today for bronchitis with azithromycin. Will need to check an INR given that the patient is on Coumadin and the azithromycin can perpetuate his blood thinning qualities. Discussed the case with cardiology, they are aware of my treatment plans and given an okay to proceed. Orders Orders: 3. Cigarette nicotine dependence without complication F17.210 Plan Continue to encourage smoking cessation. Plan Detail Follow Up 2 Months (DMB) HPI 1 M FU: Chief Complaint: Chest congestion HPI Comments Details: This is a 53 year old M, here to follow up for sleep apnea, shortness of breath on exertion and nicotine dependence. Today, Mr. Landry states that he feels as though he has a chest and head cold. The symptoms have been going on for greater than 1 week. He complains of chest congestion and a nonproductive cough. He feels as though he has sputum he should be able to expectorate but it is just sitting in his chest. He has tried [id number] Vicks vapor rub, it did not relieve his symptoms. He is also been taking NyQuil and DayQuil for his symptoms, and received some temporary relief. He reports headache, head congestion but denies any wheezing. He has noticed an increase in shortness of breath. He denies any fever, chills or body aches. This chest congestion has made it more difficult for him to tolerate his CPAP. Current use of pressure support therapy is on average of 6 hours per night with current settings of 17 cmH2O. JANES denies any daytime somnolence, dry mouth in the morning, nocturia, snoring through the mask, or morning headaches, but is experiencing difficulty with mask leaks. JANES reports feeling rested in the morning and is benefitting from current therapy.Compliance report was reviewed and shows 97% compliance, current AHI is an average of 1.6 events per hour and leaks have improved. Currently, the patient reports he has a chest and head cold. The symptoms have been ongoing for the past 10 days. He reports chest congestion and a nonproductive cough. He denies any sputum production or hemoptysis. Intake Vital Signs07/28/18 Height 5 ft 10 in 07/28/18 Weight: 273 lb Intake Visit Reasons: 1 M FU [facility] [place] Vendor: Amy Accompanied by: Self Allergies amoxicillin trihydrate [From Augmentin] Adverse Reaction (Verified 07/28/18 08:21) Nausea/Vom/Diarrhea potassium clavulanate [From Augmentin] Adverse Reaction (Verified 07/28/18 08:21) Nausea/Vom/Diarrhea Medications calcium carbonate 200 mg calcium (500 mg) chewable tablet 200 mg PO TID tab 12/22/17 [History Confirmed 07/28/18] aspirin 81 mg tablet,delayed release 81 mg PO QDAY tab 01/12/18 [History Confirmed 07/28/18] amiodarone 200 mg tablet 200 mg PO QDAY #90 tab 05/13/18 [Rx Confirmed 07/28/18] metoprolol succinate ER 50 mg tablet,extended release 24 hr 50 mg PO DAILY #90 tab 05/13/18 [Rx Confirmed 07/28/18] warfarin 5 mg tablet 5 mg PO .COMPLEX #60 tab 05/13/18 [Rx Confirmed 07/28/18] azithromycin 250 mg tablet 250 mg PO QDAY #6 tab 07/28/18 [Rx] [facility] 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) Umbilical hernia without obstruction or gangrene (Acute) Bacterial endocarditis (Chronic 2004) Pulmonary embolism (Chronic) Nicotine dependence (Chronic) Rapid palpitations (Acute) Dyspnea on exertion (Acute) Obesity (BMI 30.0-34.9) (Chronic) Preop cardiovascular exam (Acute) New onset atrial fibrillation (Chronic) Acid reflux (Acute) Colon polyps (Acute) Duodenal ulcer (Acute) Umbilical hernia (Acute) history of colon perforation (Acute) Surgical History H/O umbilical hernia repair (Resolved 01/2018) History of colon resection (Acute) Family History Mother Diabetes Heart disease atrial fib, hx ablation Thyroid disorder CAD (coronary artery disease) CABG Grandfather Myocardial infarction Father Cancer bladder Social History Smoking Status: Current every day smoker tobacco type: cigarettes alcohol intake: current alcohol intake frequency: a few times a month Alcohol type: beer substance use type: former substance user Date of last use: 2016 marijuana, cocaine in 20s, marijuana, crack/cocaine caffeine: Yes Type: coffee Number of servings: 3 what type of physical activity do you participate in: none seatbelt use: always do you feel safe at home: Yes Review of Systems Const CONSTITUTIONAL: Positive headache(s); negative anorexia, body ache, chills, daytime sleepiness, fever(s), night sweats, oral thrush, stops breathing during sleep, weight loss, sleeping in chair, fatigue, weight loss, weight gain, frequent colds, seasonal allergies, other or orthopnea EETM Ear Nose Throat Mouth: Positive hearing normal, headache(s), nasal congestion and nasal discharge; negative hard of hearing, hoarseness, dry mouth in morning, change in vision, itchy eyes, eye pain, swallowing Difficulty, ear pain, nose bleed, mouth pain, post nasal drip, sinus pain, sinus pressure, sore throat or other Cardio Cardiovascular: Negative chest pain, chest pain at rest, chest pain with activity, irregular heart rhythm, edema, shortness of breath when lying down, palpitations, murmur or other Resp Respiratory: Positive as per HPI, shortness of breath shortness of breath: Positive with activity, wheezing, chest congestion, cough cough: Positive non-productive and chest tightness; negative pain with cough, pain on inspiration, inhalers, increase use of rescue inhalers, snoring, apnea or other Gastro Gastrointestional: Negative bloody stools, change in appetite, difficulty swallowing, reflux, hematemesis, melena stool, loose stool, constipation or other Genitourinary: Negative blood in urine, nocturia, pain with urination or other Musc Musculoskeletal: Negative body pain, back pain, neck pain or other Skin/Breast Skin/Breast: Negative dry skin, itching, rash, unusual bruising, breast lump or other Neuro Neurological: Negative restless legs, confusion, weakness or other Psych Psychocological: Negative abnormal sleep pattern, anxiety, thoughts of hurting self/others, hopelessness or other Lymph Lymphatic: Negative easy bleeding, easy bruising, swollen lymph nodes or other Exam Const Constitutional: Positive conversant, cooperative, in no acute respiratory distress, healthy appearing, well developed, well nourished, good hygiene and obese Head Head: Positive normocephalic and atraumatic; negative cyanosis of lips/distal nose Eyes Eye: Positive clear conjunctiva; negative nystagmus or scleral abnormality Ears Ear: Positive hearing normal and external ears normal; negative hard of hearing Nose Nose: Positive external nose normal and no nasal discharge; negative epistaxis Mouth Mouth: Positive oral mucosae normal, no lesions, good dentition and crowded posterior oropharynx; negative post nasal drip, malodorous breath or oral thrush present Mallampati Score: IV: Mallampati Score Neck Neck: Positive normal visual inspection, full ROM, trachea midline, thick neck and male neck greater than 43 cm (17 in); negative lymphadenopathy, JVD or tender Chest Wall Chest: Positive normal inspection of the chest and symmetric chest movement; negative increased A/P diameter Resp lung sounds: Positive clear to auscultation, diminished, normal expiratory time and normal respiratory effort; negative wheezes, rhonchi, rales, dullness to percussion or wheeze present on forced exhalation Cardio Cardiac: Positive S1 normal and S2 normal; negative murmur, regular rate or regular rhythm GI GI: Positive normal to inspection and obese; negative distended Genitourinary: Positive deferred Musc Musculoskeletal: Positive steady gait and ROM normal; negative kyphosis or scoliosis Skin Pulmonary Skin Exam: Positive intact; negative rash Pulses Pulse: Yes pulses normal x4 extremities Extremities Extremities: Yes capillary refill normal, No clubbing, No cyanosis, No edema Neuro Neurologic: Yes conversant, Yes no focal neuro deficits, Yes understands questions, Yes normal concentration, Yes cooperative, Yes normal cognition, Yes normal coordination Lymph Lymphatic: No lymphadenopathy, No tenderness, No cervical adenopathy Psych Appearance: Positive grossly normal, eye contact and well kempt Mental Status: Positive mental status grossly normal Mood: Positive congruent mood Affect: Positive normal affect Coding Level of Care Code Off vis,est,level 4 Diagnoses DONI (obstructive sleep apnea) G47.33 MONTANO (dyspnea on exertion) R06.09 Cigarette nicotine dependence without complication F17.210 Nicotine product type: cigarettes Substance use status: uncomplicated 07/29/18 0946 <Electronically signed by Edelmira DÍAZ> Date Edelmira DÍAZ Cosigner Signature: Date (if applicable) CC: Krishna Mendoza MD PROTHROMBIN TIME W/INR Collected: 07/28/2018 Status: F Source: [place] 9:24 AM [facility] REPOSITORY TYPE CODE TESTS RESULT OUT OF RANGE REFERENCE UNITS LAB L300.4150 11.7-14.9 SECONDS High PROTIME 32.7 LAB L300.4200 Normal INR 3.2 Performed By: #### L300.3900 #### [facility] [place], [place], [address] PULMONARY VISIT REPORT Observed: 06/28/2018 Status: F Source: [place] 2:26 PM [facility] REPOSITORY [facility] [address] [place] [address] OFFICE VISIT Date of Service: 06/28/18 MR#: [id number] Acct: [id number] Name: JANES LANDRY Rep #: [id number] : 1965 Provider: Edelmira Saldana Age/Sex: 53/M Location: [facility] Status: Signed Assessment AND Plan 1. DONI (obstructive sleep apnea) G47.33 Plan New. The patient has been struggling over the past month to adjust to the CPAP of 17 cm of water. He does have a significant leak. I have encouraged him to evaluate mask alternatives. I would like to try him on a slightly lower pressure over the next month to see if this helps with leak. I will watch him closely over the next month, evaluate his next office visit with a compliance report to determine if this has been helpful. The patient has been encouraged to contact the office if his symptoms worsen on the lower pressure and we will return to 17 cm of water. The patient conveys understanding and is agreeable to this plan. 2. Obesity (BMI 30.0-34.9) E66.9 Plan Lengthy discussion about the pathophysiology of obstructive sleep apnea and its relationship to obesity. The patient is highly motivated to lose weight so that he will not be on this thing forever. Continue to encourage weight loss, I have encouraged him to increase his physical activity. He reports that hunting season is coming up and he will be walking a lot. 3. Cigarette nicotine dependence without complication F17.210 Plan Given his nicotine dependence it would be appropriate to evaluate him at some point with a pulmonary function test to identify and quantify COPD if present. We will address this at the follow-up visit. Continue to encourage smoking cessation. Plan Detail Follow Up 1 Month (CSM) HPI sleep study f/u: Chief Complaint: Daytime hypersomnia HPI Comments Details: Patient is still smoking 1ppd, was on chantix but caused rt sided chest discomfort. This patient reports the office today for his initial consultation regarding concern for obstructive sleep apnea. The patient is ambulatory and currently in room air. The patient was referred to our office for evaluation of newly identified obstructive sleep apnea from his manufacturing chief engineer. According to the office visit note the patient has had witnessed episodes of apneas, is known to snore and has difficulty feeling fatigue. He also reports 4-5 episodes of nocturia nightly. He was set up on a CPAP of 17 cm of water. He reports difficulty with dry mouth and air leaks. He also admits that he feels as though he is being suffocated and has difficulty keeping the mask on. He has looked at a few different masks, believes that he is having difficulty secondary to his mustache and samuel. Split-night study completed on May 13, 2018 shows that the patient has severe sleep apnea, obstructive, and was recommended to be started on nasal CPAP of 17 cm of water. Compliance report for the past 30 days shows 83% compliance, average use is 5 hours and 25 minutes. Current setting is 17 cm of water and AHI is controlled at 2.2 events per hour but leaks do appear to be a frequent issue. He denies any shortness of breath, does report a nonproductive cough. He continues to smoke 1 pack per day of cigarettes. He denies any wheezing, chest tightness, chest pain or palpitations. He has known to be in paroxysmal atrial fibrillation. He does report some mild lower extremity had edema on occasion, not currently. See complete review of systems. 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 His past family medical history is positive for: Mother has colon cancer currently, stage IV. Father of bladder cancer at age 68. One sister has COPD and breathing issues and another sister has heart issues. He does have 3 children, all of which have good health, he did mention that his youngest son is currently dealing with some obesity. Intake Vital Signs06/28/18 Height 5 ft 10 in 06/28/18 Weight: 270 lb Intake Visit Reasons: sleep study f/u [facility] [place] Vendor: Amy Accompanied by: Self Allergies amoxicillin trihydrate [From Augmentin] Adverse Reaction (Verified 06/28/18 07:22) Nausea/Vom/Diarrhea potassium clavulanate [From Augmentin] Adverse Reaction (Verified 06/28/18 07:22) Nausea/Vom/Diarrhea Medications calcium carbonate 200 mg calcium (500 mg) chewable tablet 200 mg PO TID tab 12/22/17 [History Confirmed 06/28/18] aspirin 81 mg tablet,delayed release 81 mg PO QDAY tab 01/12/18 [History Confirmed 06/28/18] amiodarone 200 mg tablet 200 mg PO QDAY #90 tab 05/13/18 [Rx Confirmed 06/28/18] metoprolol succinate ER 50 mg tablet,extended release 24 hr 50 mg PO DAILY #90 tab 05/13/18 [Rx Confirmed 06/28/18] warfarin 5 mg tablet 5 mg PO .COMPLEX #60 tab 05/13/18 [Rx Confirmed 06/28/18] [facility] 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) Umbilical hernia without obstruction or gangrene (Acute) Bacterial endocarditis (Chronic 2004) Pulmonary embolism (Chronic) Nicotine dependence (Chronic) Rapid palpitations (Acute) Dyspnea on exertion (Acute) Obesity (BMI 30.0-34.9) (Chronic) Preop cardiovascular exam (Acute) New onset atrial fibrillation (Chronic) Acid reflux (Acute) Colon polyps (Acute) Duodenal ulcer (Acute) Umbilical hernia (Acute) history of colon perforation (Acute) Surgical History H/O umbilical hernia repair (Resolved 01/2018) History of colon resection (Acute) Family History Mother Diabetes Heart disease atrial fib, hx ablation Thyroid disorder CAD (coronary artery disease) CABG Grandfather Myocardial infarction Father Cancer bladder Social History Smoking Status: Current every day smoker tobacco type: cigarettes alcohol intake: current alcohol intake frequency: a few times a month Alcohol type: beer substance use type: former substance user Date of last use: 2017 marijuana, cocaine in 20s, marijuana, crack/cocaine caffeine: Yes Type: coffee Number of servings: 3 what type of physical activity do you participate in: none seatbelt use: always do you feel safe at home: Yes Review of Systems Const CONSTITUTIONAL: Positive fatigue and weight gain; negative anorexia, body ache, chills, daytime sleepiness, fever(s), night sweats, oral thrush, stops breathing during sleep, weight loss, sleeping in chair, weight loss, frequent colds, seasonal allergies, other, headache(s) or orthopnea [facility] Ear Nose Throat Mouth: Positive hearing normal; negative hard of hearing, hoarseness, dry mouth in morning, change in vision, itchy eyes, eye pain, swallowing Difficulty, ear pain, nose bleed, headache(s), mouth pain, nasal congestion, nasal discharge, post nasal drip, sinus pain, sinus pressure, sore throat or other Cardio Cardiovascular: Negative chest pain, chest pain at rest, chest pain with activity, irregular heart rhythm, edema, shortness of breath when lying down, palpitations, murmur or other Resp Respiratory: Positive as per HPI and cough cough: Positive non-productive; negative shortness of breath, pain with cough, wheezing, chest congestion, chest tightness, pain on inspiration, inhalers, increase use of rescue inhalers, snoring, apnea or other Gastro Gastrointestional: Negative bloody stools, change in appetite, difficulty swallowing, reflux, hematemesis, melena stool, loose stool, constipation or other Genitourinary: Negative blood in urine, nocturia, pain with urination or other Musc Musculoskeletal: Negative body pain, back pain, neck pain or other Skin/Breast Skin/Breast: Negative dry skin, itching, rash, unusual bruising, breast lump or other Neuro Neurological: Negative restless legs, confusion, weakness or other Psych Psychocological: Positive anxiety; negative abnormal sleep pattern, thoughts of hurting self/others, hopelessness or other (stress) Lymph Lymphatic: Negative easy bleeding, easy bruising, swollen lymph nodes or other Exam Const Constitutional: Positive conversant, cooperative, in no acute respiratory distress, healthy appearing, well developed, well nourished, good hygiene and obese Head Head: Positive normocephalic and atraumatic; negative cyanosis of lips/distal nose Eyes Eye: Positive clear conjunctiva; negative nystagmus or scleral abnormality Ears Ear: Positive hearing normal and external ears normal; negative hard of hearing Nose Nose: Positive external nose normal and no nasal discharge; negative epistaxis Mouth Mouth: Positive oral mucosae normal, crowded posterior oropharynx, no lesions and good dentition; negative post nasal drip, malodorous breath or oral thrush present Mallampati Score: IV: Mallampati Score Neck Neck: Positive normal visual inspection, full ROM, trachea midline, thick neck and male neck greater than 43 cm (17 in); negative lymphadenopathy, JVD or tender Chest Wall Chest: Positive normal inspection of the chest and symmetric chest movement; negative increased A/P diameter Resp lung sounds: Positive clear to auscultation, good air exchange, normal expiratory time and normal respiratory effort; negative diminished, wheezes, rhonchi, rales, dullness to percussion or wheeze present on forced exhalation Cardio Cardiac: Positive regular rate, regular rhythm, S1 normal and S2 normal; negative murmur GI GI: Positive normal to inspection, normal bowel sounds and obese; negative distended Genitourinary: Positive deferred Musc Musculoskeletal: Positive steady gait and ROM normal; negative kyphosis or scoliosis Skin Pulmonary Skin Exam: Positive intact; negative rash or lesion Pulses Pulse: Yes radial pulses present Extremities Extremities: Yes capillary refill normal, No clubbing, No cyanosis, Yes edema Location: lower extremity location: Bilateral pitting trace Neuro Neurologic: Yes conversant, Yes no focal neuro deficits, Yes normal concentration, Yes understands questions, Yes cooperative, Yes normal cognition, Yes normal coordination, No tremor Lymph Lymphatic: No lymphadenopathy, No tenderness, No cervical adenopathy Psych Appearance: Positive grossly normal, eye contact and well kempt Mental Status: Positive mental status grossly normal Mood: Positive labile mood Affect: Positive irritable affect Coding Level of Care Code Off vis,new,level 4 Diagnoses DONI (obstructive sleep apnea) G47.33 Obesity (BMI 30.0-34.9) E66.9 Cigarette nicotine dependence without complication F17.210 Nicotine product type: cigarettes Substance use status: uncomplicated 06/28/18 1426 <Electronically signed by Edelmira DÍAZ> Date Edelmira DÍAZ Cosigner Signature: Date (if applicable) CC: Krishna Mendoza MD 12 LEAD EKG PERFORMED Observed: 04/08/2018 Status: F Source: [place] BY [place] 9:21 [facility] [address] [place] [address] 12 Lead EKG performed by [facility] 04/08/18919 MR#: [id number] Acct: [id number] Name: JANES LANDRY Rep #: [id number] : 1965 53 From: Julio Borrero MD Attending Dr: Julio Borrero MD Status: DEP AMB Ordering Dr: Julio Borrero MD Date: 04/08/18 Location: [facility] [place] Sex: M C Admitted: BMS/12 Lead EKG performed by [facility] ECG Report Interpretation Atrial fibrillation -irregular conduction ABNORMAL RHYTHMElectronically signed on 05/02/2018 at 17:16 by Julio Borrero 05/02/18 1720 Date Julio Borrero MD CC: Krishna Mendoza MD Date Dictated: 04/08/18919 Date Transcribed: 04/08/18919 Chess Instructor: [place] Signed OPERATIVE REPORT Observed: 03/28/2018 Status: F Source: [place] 1:04 [facility] Medical Records Department [address] [place] [address] Operative Report 03/28/18 1300 MR#: [id number] Acct: [id number] Name: JANES LANDRY Rep #: [id number] : 1965 53 From: Drake Esqueda DO PCP: Krishna Mendoza MD Status: REG SD Y Location: [facility] Operative Report Date of Procedure: 03/28/18 CONSCIOUS SEDATION REPORT DATE OF SERVICE: March 28, 2018 BRIEF HISTORY OF PRESENT ILLNESS: The patient is a 53-year-old male who presented to [facility] for an elective outpatient cardioversion due to underlying atrial fibrillation. The patient is currently therapeutically anticoagulated on Coumadin with an INR of 2.3 this morning. His last surface echocardiogram revealed ejection fraction of approximately 55%. The patient is a current smoker of one pack per day. There is concern for potential underlying obstructive sleep apnea. However, the patient is yet to undergo a formal polysomnogram. He denies any previous anesthetic complications. The patient has never previously undergone a cardioversion. PHYSICAL EXAMINATION: VITAL SIGNS: Reviewed and were acceptable. GENERAL: The patient is an overweight male, in no apparent distress, speaking in full sentences. HEENT: Normocephalic, atraumatic. Mucous membranes are moist and pink. Good mouth opening noted. Trachea is midline. Good neck mobility. CHEST: S1, S2 irregularly irregular. No murmurs, rubs or gallops were noted. LUNGS: Clear to auscultation bilaterally without appreciable wheezes, rales or rhonchi. ABDOMEN: Soft, nontender, nondistended. Positive bowel sounds. EXTREMITIES: There is no clubbing, cyanosis or edema. ASA Class: II DESCRIPTION OF PROCEDURE: After confirmation of informed consent, the patient's anesthesia plan was reviewed in detail. Propofol was chosen. Risks and benefits were reviewed and the patient agreed to proceed. At 1233, the patient was given 60 mg of propofol. The patient achieved an appropriate level of sedation and was given a 300 joule synchronized cardioversion by Dr. Borrero at the bedside. This was successful in achieving normal sinus rhythm. The patient was monitored until 1238, at which time he reached his baseline mental status and function. The patient tolerated the procedure well. COMPLICATIONS: None ESTIMATED BLOOD LOSS: None RECOMMENDATIONS: Okay to recover in usual fashion. Code Visit 9xxxx: Other Procedure See Report - [id number] 03/28/18 1304 <Electronically signed by Drake Esqueda DO> Date Drake Esqueda DO CC: Julio Borrero MD; Drake Esqueda D.O.; Krishna Mendoza MD Signed OPERATIVE REPORT Observed: 03/28/2018 Status: F Source: [place] 12:56 PM [facility] REPOSITORY [facility] Medical Records Department [address] [place] [address] Operative Report 03/28/18 1254 MR#: [id number] Acct: [id number] Name: JANES LANDRY Rep #: [id number] : 1965 53 From: Julio Borrero MD PCP: Krishna Mendoza MD Status: REG SDC Y Location: [facility] Operative Report Date of Procedure: 03/28/18 DC cardioversion. 53-year-old man with a history of chronic persistent atrial fibrillation. Patient's noted to be on anticoagulation with a therapeutic INR over the last 4 weeks. The patient was brought into the cardiac catheterization lab noninvasive section. Patient was seen by Dr. Drake Esqueda of the critical care division. After informed consent was obtained anterior posterior pads were applied. The patient was then administered 60 mg of intravenous propofol. 300 J of synchronized DC cardioversion energy were applied with prompt reversal to sinus rhythm. Patient tolerated the procedure well with no sequelae. Postoperative EKG confirmed the above. Conclusion: Successful DC cardioversion from atrial fibrillation to sinus rhythm Plan Follow-up EKG in the office in follow-up. . 03/28/18 1256 <Electronically signed by Julio Borrero MD> Date Julio Borrero MD CC: Julio Borrero MD; Krishna Mendoza MD Signed PROTIME W/INR Collected: 03/28/2018 Status: F Source: [place] 11:23 AM [facility] REPOSITORY TYPE CODE TESTS RESULT OUT OF REFERENCE UNITS RANGE LAB L9200.1001 11.9-14.4 SEC High PROTIME ISTAT 26.5 Result Comment: Reference Range 11.9 - 14.4 LAB L9200.2000 Normal INR ISTAT 2.30 Result Comment: Critical Value > 3.5 Performed By: #### L9200.0000 #### [facility] Laboratory Point of Care [address] [place], [place] [address] PROTHROMBIN TIME W/INR Collected: 03/21/2018 Status: F Source: [place] 9:54 AM [facility] REPOSITORY TYPE CODE TESTS RESULT OUT OF RANGE REFERENCE UNITS LAB L300.4150 11.7-14.9 SECONDS High PROTIME 23.9 LAB L300.4200 Normal INR 2.1 Performed By: #### L300.3900, L500.2500 #### [facility] Laboratory [address] [place], [address] BASIC METABOLIC Collected: 03/21/2018 Status: F Source: [place] PROFILE (BMP) 9:54 AM [facility] REPOSITORY TYPE CODE TESTS RESULT OUT OF RANGE REFERENCE UNITS LAB L501.0100 74-106 mg/dL Normal GLU 100 Result Comment: Fasting Glucose result from 100 to 125 mg/dL suggests IMPAIRED HOMEOSTASIS per A.D.A. criteria. Please note revised GLUCOSE reference range effective 2017. LAB L501.1000 7-18 mg/dL Normal BUN 16 LAB L501.1100 0.70-1.30 mg/dL Normal CREAT,SERUM 0.95 Result Comment: The validity of the calculated GFR AND GFRAA in patients over 70 years has not been determined. Clinical correlation is essential. LAB L501.1110 >60 mL/min Normal EST GFR 88 Result Comment: Non- GFR Calc LAB L501.1115 >60 mL/min Normal EST GFR - AA 107 Result Comment: GFR Calc LAB L501.1300 10-20 RATIO Normal BUN/CRE 16.8 LAB L501.2200 8.5-10.1 mg/dL CA Normal 9.3 LAB L501.5300 136-145 mmol/L NA Normal 136 LAB L501.5600 3.5-5.1 mmol/L K Normal 4.5 Result Comment: Moderate Hemolysis, Result may be falsely increased. LAB L501.5900 98-107 mmol/L Normal CL 106 LAB L501.6100 21.0-32.0 mmol/L Normal CO2 21.0 LAB L501.6200 5-15 Normal 9 GAP Performed By: #### L300.3900, L500.2500 #### [facility] Laboratory [address] [place], [address] CARDIOLOGY VISIT Observed: 03/15/2018 Status: F Source: [place] REPORT 4:04 PM [facility] REPOSITORY [facility] [address] [place] [address] OFFICE VISIT Date of Service: 03/14/18 MR#: [id number] Acct: [id number] Name: JANES LANDRY Rep #: [id number] : 1965 Provider: VALERIA Dye Age/Sex: 53/M Location: [facility] Status: Signed HPI HPI Details: JANES LANDRY, is a 53 M who presents to the office today for a cardiovascular outpatient follow-up. Patient was recently diagnosed with atrial fibrillation with RVR noted during an EKG prior to hernia surgery. He was sent to cardiology for cardiovascular clearance. Patient underwent a echocardiogram and stress test at outside hospital, both of which were negative. Pt. denies chest, arm, jaw, or neck discomfort. His exercise tolerance is stable though reduced. Pt. denies symptoms lightheadedness, dizziness, near syncope, or syncopal episodes. Pt. denies edema or claudication issues. Pt. denies orthopnea, PND, fever, chills, blood in urine, blood in stool, or myalgia. Pt. continues to have episodes of palpitations.. He is more fatigued and does not have the same level of stamina. He drinks 3-4 cups of coffee a day. Pt. states that he snores and his ex- has mentioned seeing episodes of apnea. He states feeling fatigued during the day despite a good nights rest. Intake Intake Visit Reasons: 1 M FU Equipment Tech Required: No Accompanied by: none Is patient in pain?: No Allergies amoxicillin trihydrate [From Augmentin] Adverse Reaction (Verified 03/14/18 14:12) Nausea/Vom/Diarrhea potassium clavulanate [From Augmentin] Adverse Reaction (Verified 03/14/18 14:12) Nausea/Vom/Diarrhea Medications calcium carbonate 200 mg calcium (500 mg) chewable tablet 200 mg PO TID tab 12/22/17 [History Confirmed 03/10/18] Varenicline [Chantix] 1 mg PO BID 01/03/18 [History Confirmed 03/10/18] aspirin 81 mg tablet,delayed release 81 mg PO QDAY tab 01/12/18 [History Confirmed 03/10/18] warfarin 5 mg tablet 5 mg PO QDAY #30 tab 02/18/18 [Rx Confirmed 03/10/18] metoprolol succinate ER 50 mg tablet,extended release 24 hr 50 mg PO DAILY #90 tab 03/14/18 [Rx Confirmed 03/14/18] Ejection fraction %: 55 to 59 [facility] 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) Umbilical hernia without obstruction or gangrene (Acute) Bacterial endocarditis (Chronic 2004) Pulmonary embolism (Chronic) Nicotine dependence (Chronic) Rapid palpitations (Acute) Dyspnea on exertion (Acute) Obesity (BMI 30.0-34.9) (Chronic) Preop cardiovascular exam (Acute) New onset atrial fibrillation (Chronic) Acid reflux (Acute) Colon polyps (Acute) Duodenal ulcer (Acute) Umbilical hernia (Acute) history of colon perforation (Acute) Surgical History H/O umbilical hernia repair (Resolved 01/2018) History of colon resection (Acute) Family History Mother Diabetes Heart disease atrial fib, hx ablation Thyroid disorder CAD (coronary artery disease) CABG Grandfather Myocardial infarction Father Cancer bladder Social History Smoking Status: Current every day smoker tobacco type: cigarettes alcohol intake: current alcohol intake frequency: a few times a month Alcohol type: beer substance use type: former substance user Date of last use: 2016 marijuana, cocaine in 20s, marijuana, crack/cocaine caffeine: Yes Type: coffee Number of servings: 3 what type of physical activity do you participate in: none seatbelt use: always do you feel safe at home: Yes ROS Const Const: Positive for fatigue; negative for weakness, body ache, fever(s) or chills ENT ENT: Negative for dizziness Cardio Chest Pain: No Palpitations: Yes Edema: None Muscle aches with walking: None Resp Respiratory: Positive for snoring; negative for SOB with activity, SOB at rest, SOB orthopnea\SOB lying down or paroxysmal nocturnal dyspnea GI GI: Negative nausea, black,tarry stools, bright, red blood in stools or vomiting blood/hematemesis : Negative for hematuria or frequent nighttime urination/ nocturia Musc Musc: Negative for muscle aches/ myalgia Neuro Neuro: Negative for weakness, dizziness, lightheadedness, near syncope or syncope Endo Endo: Positive for fatigue Cardiology Exam Const Appearance: cooperative, healthy appearing, comfortable and no acute distress Orientation: alert, awake and oriented x3 Head Head: normal to inspection Ears: external ears normal Nose: external nose normal Face and Sinus: face symmetric Mouth: oral mucosae normal Eyes General: appearance normal, both eyes and all related structures Neck Neck: no JVD and normal visual inspection Carotids: normal carotid upstroke Chest Chest inspection: normal inspection of the chest and normal respiratory effort Auscultation: Bilateral: Clear to Auscultation Cardio Rate: regular rate Rhythm: irregular rhythm Heart sounds: S1 normal and S2 normal; negative rub or gallop GI GI: normal to inspection Neuro General: alert, awake, oriented x3 and CN's II-XI intact bilaterally Skin Skin: no rashes or lesions noted Extremities Pulses: Normal: Right Posterior Tibial Pulse, Left Posterior Tibial Pulse, Right Radial Pulse, Left Radial Pulse Lower Extremity Edema: None: Bilateral Psych Psychological: normal affect Supplemental Info Echocardiogram from January 2018 showed an estimated ejection fraction of 45-50%, normal right ventricular size and systolic function, no significant valvular heart disease, diastolic function consistent with atrial fibrillation, RVSP of 60 mmHg, and no previous study available for comparison. Stress test from January 2018 was negative for stress-induced myocardial ischemia. Ejection fraction was reported at 39%. Assessment AND Plan 1. New onset atrial fibrillation I48.91 Plan - ARJUN Echevarria EKG in office showed showed atrial fibrillation/flutter at a rate of 107 bpm. Patient's echocardiogram from January 2018 showed ejection fraction of 45-50% and no significant valvular heart disease was noted. Patient's INR has been therapeutic for 3 weeks. If his INR remains therapeutic next week this will be followed by a cardioversion. Hopefully post cardioversion patient's symptoms improved. Patient was reminded of the importance of decreasing and/or stopping altogether both coffee and tobacco products. He will continue with beta-keisha and Coumadin therapy. Orders Orders: 2. Cigarette nicotine dependence without complication F17.210 Plan - ARJUN Echevarria Patient continues to smoke. He received extensive education regarding the health benefits of smoking cessation. We will continue to support and encourage smoking cessation. 3. Hypersomnia, unspecified G47.10 Plan - ARJUN Echevarria Patient does exhibit some concerning symptoms for obstructive sleep apnea such as daytime fatigue, witnessed apnea, and loud snoring. Given his recent diagnosis of atrial fibrillation it again was recommended he undergo a polysomnogram for further evaluation. Patient was agreeable at this time. This will be arranged for him post cardioversion. Based on results further recommendation will be made. Plan Detail Other Orders Orders: Other Medications Refilled: Discontinued: prednisone Take as directed Discontinued Reason: Pt no [id number] mg PO PER PKG DIR taking Additional Comments - ARJUN Echevarria Discussed the above patient with Dr. Borrero, he agrees with the plan of care. Thank you for allowing us to participate in the patients plan of care, if you have any questions please do not hesitate to call. This note was generated using a voice recognition system and there may be incorrect words, spelling or punctuation that were not noted when reviewing the office note prior to saving. 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) Coding Level of Care Code Off vis,est,level 3 Diagnoses New onset atrial fibrillation I48.91 Cigarette nicotine dependence without complication F17.210 Nicotine product type: cigarettes Substance use status: uncomplicated Hypersomnia, unspecified G47.10 Coding Level of Care Code Off vis,est,level 3 Diagnoses New onset atrial fibrillation I48.91 Cigarette nicotine dependence without complication F17.210 Nicotine product type: cigarettes Substance use status: uncomplicated Hypersomnia, unspecified G47.10 03/15/18 0747 <Electronically signed by Krishna Dye MENTAL HEALTH SOCIAL WORKER-C> Date Krishna Dye MENTAL HEALTH SOCIAL WORKER-C 03/15/18 1604<Electronically signed by Julio Borrero MD> Cosigner Signature: Date (if applicable) Julio Borrero MD CC: Krishna Mendoza MD 12 LEAD EKG PERFORMED Observed: 03/14/2018 Status: F Source: [place] [facility] 2:24 PM [facility] REPOSITORY [facility] [address] [address] 12 Lead EKG performed by [facility] 03/14/18 1423 MR#: [id number] Acct: [id number] Name: JANES LANDRY Rep #: [id number] : 1965 53 From: Krishna Dye MENTAL HEALTH SOCIAL WORKER-C Attending Dr: Krishna Dye NP Status: DEP AMB Ordering Dr: Krishna Dye MENTAL HEALTH SOCIAL WORKERRaminC Date: 03/14/18 Location: [facility] Sex: M C Admitted: BMS/12 Lead EKG performed by [facility] ECG Report Interpretation Atrial flutter-fibrillation - occasional ectopic ventricular beat -Old inferior infarct. ABNORMAL Electronically signed on 03/15/2018 at 13:42 by Julio Borrero 03/15/18 1347 Date Krishna Dye MENTAL HEALTH SOCIAL WORKERAtilio CC: Krishna Mendoza MD Date Dictated: 03/14/181422 Date Transcribed: 03/14/181422 Chess Instructor: EUGENE Signed PROTHROMBIN TIME W/INR Collected: 03/14/2018 Status: F Source: [place] 9:56 AM [facility] REPOSITORY TYPE CODE TESTS RESULT OUT OF RANGE REFERENCE UNITS LAB L300.4150 11.7-14.9 SECONDS High PROTIME 26.3 LAB L300.4200 Normal INR 2.4 Performed By: #### L300.3900 #### [facility] Laboratory [address] [place], [place], [address] SURGERY VISIT REPORT Observed: 03/10/2018 Status: F Source: [place] 9:18 AM [facility] REPOSITORY [facility] [address] [place] [address] OFFICE VISIT Date of Service: 03/10/18 MR#: [id number] Acct: [id number] Name: PARKERJANES E Rep #: [id number] : 1965 Provider: Aravind Douglass MD Age/Sex: 53/M Location: [facility] Status: Signed Intake Intake Visit Reasons: F/U wound check Chief Complaint: f/u umbilical hernia repair DP Equipment Tech Required: No Is patient in pain?: No Allergies amoxicillin trihydrate [From Augmentin] Adverse Reaction (Verified 03/10/18 09:09) Nausea/Vom/Diarrhea potassium clavulanate [From Augmentin] Adverse Reaction (Verified 03/10/18 09:09) Nausea/Vom/Diarrhea Medications calcium carbonate 200 mg calcium (500 mg) chewable tablet 200 mg PO TID tab 12/22/17 [History Confirmed 03/10/18] Varenicline [Chantix] 1 mg PO BID 01/03/18 [History Confirmed 03/10/18] Metoprolol(XL)Succ [Toprol Xl (Beta Keisha)] 50 mg PO DAILY #60 tab 01/10/18 [Rx Confirmed 03/10/18] aspirin 81 mg tablet,delayed release 81 mg PO QDAY tab 01/12/18 [History Confirmed 03/10/18] prednisone 10 mg tablets in a dose pack 10 mg PO PER PKG DIR #21 tab 02/01/18 [Rx Confirmed 03/10/18] warfarin 5 mg tablet 5 mg PO QDAY #30 tab 02/18/18 [Rx Confirmed 03/10/18] PFSH 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) Bacterial endocarditis (Chronic 2004) Pulmonary embolism (Chronic) Nicotine dependence (Chronic) Obesity (BMI 30.0-34.9) (Chronic) New onset atrial fibrillation (Acute) Acid reflux (Acute) Colon polyps (Acute) Duodenal ulcer (Acute) Umbilical hernia (Acute) history of colon perforation (Acute) Surgical History H/O umbilical hernia repair (Acute 01/2018) History of colon resection (Acute) Family History Mother Diabetes Heart disease atrial fib, hx ablation Thyroid disorder CAD (coronary artery disease) CABG Grandfather Myocardial infarction Father Cancer bladder Social History Smoking Status: Current every day smoker tobacco type: cigarettes alcohol intake: current alcohol intake frequency: a few times a month Alcohol type: beer substance use type: former substance user Date of last use: 2017 marijuana, cocaine in 20s, marijuana, crack/cocaine caffeine: Yes Type: coffee Number of servings: 3 what type of physical activity do you participate in: none seatbelt use: always do you feel safe at home: Yes HPI HPI HPI: JANES LANDRY, is a 53 M who presents to the office today for wound check.. Patient's wound to his umbilicus is continuing to show progressive improvement the area where the skin necrosis is occurring is getting smaller is continuing to use peroxide and washing it on a daily basis. Exam Skin Other: Upper aspect of the incision looks clean there is no signs of cellulitis has a small scab on this. On the skin part in towards the umbilicus it is getting smaller it is clearly an eschar that is going to fall off at some point but at the present time I do not think there is any need for debridement since there is no signs of any cellulitis. This eschar part measures approximately 1.2 cm in greatest diameter and is circular in nature. The surrounding skin is all viable without signs of cellulitis. Assessment AND Plan Problems 1. Aftercare Z51.89 Plan Patient is going to continue to put the triple antibiotic ointment on his wound. He will follow-up with me in 2 weeks. He has no restrictions. Coding Level of Care Code Global Post Op Diagnoses Aftercare Z51.89 03/10/18 0918 <Electronically signed by Aravind Douglass MD> Date Aravind Douglass MD Cosigner Signature: Date (if applicable) CC: PROTHROMBIN TIME W/INR Collected: 03/07/2018 Status: F Source: [place] 10:49 AM [facility] REPOSITORY TYPE CODE TESTS RESULT OUT OF RANGE REFERENCE UNITS LAB L300.4150 11.7-14.9 SECONDS High PROTIME 25.4 LAB L300.4200 Normal INR 2.3 Performed By: #### L300.3900 #### [facility] [address] [place], [place], [address] SURGERY VISIT REPORT Observed: 03/06/2018 Status: F Source: [place] 1:06 PM [facility] REPOSITORY [facility] [address] [place] [address] OFFICE VISIT Date of Service: 02/25/18 MR#: [id number] Acct: [id number] Name: JANES LANDRY Rep #: [id number] : 1965 Provider: Aravind Douglass MD Age/Sex: 53/M Location: [facility] [place] Status: Signed Intake Intake Visit Reasons: wound check, let cardio know if ok for anticoags Chief Complaint: f/u umbilical hernia repair DP Equipment Tech Required: No Is patient in pain?: No Allergies amoxicillin trihydrate [From Augmentin] Adverse Reaction (Verified 03/03/18 15:00) Nausea/Vom/Diarrhea potassium clavulanate [From Augmentin] Adverse Reaction (Verified 03/03/18 15:00) Nausea/Vom/Diarrhea Medications calcium carbonate 200 mg calcium (500 mg) chewable tablet 200 mg PO TID tab 12/22/17 [History Confirmed 03/03/18] Varenicline [Chantix] 1 mg PO BID 01/03/18 [History Confirmed 03/03/18] Metoprolol(XL)Succ [Toprol Xl (Beta Keisha)] 50 mg PO DAILY #60 tab 01/10/18 [Rx Confirmed 03/03/18] aspirin 81 mg tablet,delayed release 81 mg PO QDAY tab 01/12/18 [History Confirmed 03/03/18] prednisone 10 mg tablets in a dose pack 10 mg PO PER PKG DIR #21 tab 02/01/18 [Rx Confirmed 03/03/18] warfarin 5 mg tablet 5 mg PO QDAY #30 tab 02/18/18 [Rx Confirmed 03/03/18] PFSH 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) Bacterial endocarditis (Chronic 2004) Pulmonary embolism (Chronic) Nicotine dependence (Chronic) Obesity (BMI 30.0-34.9) (Chronic) New onset atrial fibrillation (Acute) Acid reflux (Acute) Colon polyps (Acute) Duodenal ulcer (Acute) Umbilical hernia (Acute) history of colon perforation (Acute) Surgical History H/O umbilical hernia repair (Acute 01/2018) History of colon resection (Acute) Family History Mother Diabetes Heart disease atrial fib, hx ablation Thyroid disorder CAD (coronary artery disease) CABG Grandfather Myocardial infarction Father Cancer bladder Social History Smoking Status: Current every day smoker tobacco type: cigarettes alcohol intake: current alcohol intake frequency: a few times a month Alcohol type: beer substance use type: former substance user Date of last use: 2016 marijuana, cocaine in 20s, marijuana, crack/cocaine caffeine: Yes Type: coffee Number of servings: 3 what type of physical activity do you participate in: none seatbelt use: always do you feel safe at home: Yes HPI HPI HPI: JANES LANDRY, is a 53 M who presents to the office today for a wound recheck. Patient has had no complaints he has been taking care of his wound and he has noticed improvement from day 1. Exam Skin Other: There is no signs of cellulitis. The scab on the upper incision is falling off and the area on the skin inside the umbilicus has gotten smaller and is continuing to heal. There is no signs of cellulitis Assessment AND Plan Problems 1. Aftercare Z51.89 Plan Continue to do the dressing changes and cleaning with peroxide and soap and using triple antibiotic ointment. I will see him back next week. Coding Level of Care Code Global Post Op Diagnoses Aftercare Z51.89 03/06/18 1306 <Electronically signed by Aravind Douglass MD> Date Aravind Douglass MD Cosigner Signature: Date (if applicable) CC: SURGERY VISIT REPORT Observed: 03/06/2018 Status: F Source: [place] 12:43 PM [facility] REPOSITORY [facility] [address] [place] [address] [address] [place], [place] [address] OFFICE VISIT Date of Service: 03/03/18 MR#: [id number] Acct: [id number] Name: JANES LANDRY Rep #: [id number] : 1965 Provider: Aravind Douglass MD Age/Sex: 53/M Location: [facility] Status: Signed Intake Intake Visit Reasons: f/u hernia surgery 01/25/18, having pain Chief Complaint: f/u umbilical hernia repair DP Equipment Tech Required: No Is patient in pain?: Yes (abdominal pain) Allergies amoxicillin trihydrate [From Augmentin] Adverse Reaction (Verified 03/03/18 15:00) Nausea/Vom/Diarrhea potassium clavulanate [From Augmentin] Adverse Reaction (Verified 03/03/18 15:00) Nausea/Vom/Diarrhea Medications calcium carbonate 200 mg calcium (500 mg) chewable tablet 200 mg PO TID tab 12/22/17 [History Confirmed 03/03/18] Varenicline [Chantix] 1 mg PO BID 01/03/18 [History Confirmed 03/03/18] Metoprolol(XL)Succ [Toprol Xl (Beta Keisha)] 50 mg PO DAILY #60 tab 01/10/18 [Rx Confirmed 03/03/18] aspirin 81 mg tablet,delayed release 81 mg PO QDAY tab 01/12/18 [History Confirmed 03/03/18] prednisone 10 mg tablets in a dose pack 10 mg PO PER PKG DIR #21 tab 02/01/18 [Rx Confirmed 03/03/18] warfarin 5 mg tablet 5 mg PO QDAY #30 tab 02/18/18 [Rx Confirmed 03/03/18] PFSH 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) Bacterial endocarditis (Chronic 2004) Pulmonary embolism (Chronic) Nicotine dependence (Chronic) Obesity (BMI 30.0-34.9) (Chronic) New onset atrial fibrillation (Acute) Acid reflux (Acute) Colon polyps (Acute) Duodenal ulcer (Acute) Umbilical hernia (Acute) history of colon perforation (Acute) Surgical History H/O umbilical hernia repair (Acute 01/2018) History of colon resection (Acute) Family History Mother Diabetes Heart disease atrial fib, hx ablation Thyroid disorder CAD (coronary artery disease) CABG Grandfather Myocardial infarction Father Cancer bladder Social History Smoking Status: Current every day smoker tobacco type: cigarettes alcohol intake: current alcohol intake frequency: a few times a month Alcohol type: beer substance use type: former substance user Date of last use: 2016 marijuana, cocaine in 20s, marijuana, crack/cocaine caffeine: Yes Type: coffee Number of servings: 3 what type of physical activity do you participate in: none seatbelt use: always do you feel safe at home: Yes HPI HPI HPI: JANES LANDRY, is a 53 M who presents to the office today for evaluation of discomfort of his abdomen radiating all the way up into his chest. In addition the patient says that he has had some significant fatigue feeling tired as well as some shortness of breath. Patient states that the area at his umbilicus is doing well he is not having any difficulty with it and it does not have any discharge. Exam Resp Other: His lungs are clear to auscultation Skin Other: Umbilicus looks the best that it has. There is no cellulitis the swelling has significantly gone down in size and the scabbed area is healing quite nicely. And I do not think that there is any surgical intervention that we are going to need to do for this. With regards to his abdominal pain when I palpate there is no abdominal pain identified on palpation. Assessment AND Plan Problems 1. Aftercare Z51.89 Plan At this point I want patient can continue to do the care that he has at his umbilicus it is clearly working and there is no reason to deviate. 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 I do not believe he is experiencing any significant chest pains or that he is at risk for heart attack. I have instructed him that if things get worse that he should return to the emergency department at once. Coding Level of Care Code Global Post Op Diagnoses Aftercare Z51.89 03/06/18 1243 <Electronically signed by Aravind Douglass MD> Date Aravind Douglass MD Cosign Signature: Date (if applicable) CC: Julio Borrero MD; Krishna Mendoza MD PROTHROMBIN TIME W/INR Collected: 02/28/2018 Status: F Source: [place] 3:44 PM [facility] REPOSITORY TYPE CODE TESTS RESULT OUT OF RANGE REFERENCE UNITS LAB L300.4150 11.7-14.9 SECONDS High PROTIME 22.8 LAB L300.4200 Normal INR 2.0 Performed By: #### L300.3900 #### [facility] [address] [place], [address] SURGERY VISIT REPORT Observed: 02/18/2018 Status: F Source: [place] 9:57 AM [facility] REPOSITORY [facility] [address] [place] [address] OFFICE VISIT Date of Service: 02/18/18 MR#: [id number] Acct: [id number] Name: JANES LANDRY Rep #: [id number] : 1965 Provider: Aravind Douglass MD Age/Sex: 53/M Location: [facility] Status: Signed Intake Intake Visit Reasons: wound check, let cardio know if ok for anticoags Chief Complaint: f/u umbilical hernia repair DP Equipment Tech Required: No Is patient in pain?: No Allergies amoxicillin trihydrate [From Augmentin] Adverse Reaction (Verified 02/18/18 09:04) Nausea/Vom/Diarrhea potassium clavulanate [From Augmentin] Adverse Reaction (Verified 02/18/18 09:04) Nausea/Vom/Diarrhea Medications calcium carbonate 200 mg calcium (500 mg) chewable tablet 200 mg PO TID tab 12/22/17 [History Confirmed 02/18/18] Varenicline [Chantix] 1 mg PO BID 01/03/18 [History Confirmed 02/18/18] Metoprolol(XL)Succ [Toprol Xl (Beta Keisha)] 50 mg PO DAILY #60 tab 01/10/18 [Rx Confirmed 02/18/18] aspirin 81 mg tablet,delayed release 81 mg PO QDAY tab 01/12/18 [History Confirmed 02/18/18] prednisone 10 mg tablets in a dose pack 10 mg PO PER PKG DIR #21 tab 02/01/18 [Rx Confirmed 02/18/18] oxycodone-acetaminophen 5 mg-325 mg tablet 1 tab PO ONCE PRN 7 Days #30 tab 02/18/18 [Rx Confirmed 02/18/18] [facility] Medical History Bacterial endocarditis (Chronic 2004) Pulmonary embolism (Chronic) Nicotine dependence (Chronic) Obesity (BMI 30.0-34.9) (Chronic) New onset atrial fibrillation (Acute) Acid reflux (Acute) Colon polyps (Acute) Duodenal ulcer (Acute) Umbilical hernia (Acute) history of colon perforation (Acute) Surgical History H/O umbilical hernia repair (Acute 01/2018) History of colon resection (Acute) Family History Mother Diabetes Heart disease atrial fib, hx ablation Thyroid disorder CAD (coronary artery disease) CABG Grandfather Myocardial infarction Father Cancer bladder Social History Smoking Status: Current every day smoker tobacco type: cigarettes alcohol intake: current alcohol intake frequency: a few times a month Alcohol type: beer substance use type: former substance user Date of last use: 2016 marijuana, cocaine in 20s, marijuana, crack/cocaine caffeine: Yes Type: coffee Number of servings: 3 what type of physical activity do you participate in: none seatbelt use: always do you feel safe at home: Yes HPI HPI HPI: JANES LANDRY, is a 53 M who presents to the office today for for wound check at his umbilicus. Patient has been doing twice daily dressing changes and has had no further problems with his wound. He has been increasing his activities and has been noticing some discomfort around his umbilical area. Making it difficult for him to sleep at night. Exam Skin Other: The umbilical area continues to improve there is no signs of cellulitis. There is too darkened blackened eschar areas which are healing appropriately. At this point I do not think that there is any incision and drainage that we need to do. Assessment AND Plan Problems 1. Aftercare Z51.89 Plan He is going to continue to do twice daily dressing changes. I have given him a prescription for Percocet 1-2 p.o. every 4-6 hours as needed 30 with no refill. I have told him this is his last dose of Percocet. I believe that it is safe for him to start his anticoagulation at this time. We will continue to follow up on a weekly basis with his wound care with my physician information technology assistant Mirella. Medications New: Coding Level of Care Code Global Post Op Diagnoses Aftercare Z51.89 02/18/18 0957 <Electronically signed by Aravind Douglass MD> Date Aravind Douglass MD Cosigner Signature: Date (if applicable) CC: Julio Borrero MD; Krishna Mendoza MD; PILAR AREVALO CARDIOLOGY VISIT Observed: 02/12/2018 Status: F Source: [place] REPORT 3:44 PM [facility] REPOSITORY [facility] [address] [place] [address]. [address] [place] [address] OFFICE VISIT Date of Service: 02/11/18 MR#: [id number] Acct: [id number] Name: JANES LANDRY Rep #: [id number] : 1965 Provider: VALERIA Dye Age/Sex: 53/M Location: [facility] Status: Signed HPI HPI Details: JANES LANDRY, is a 53 M who presents to the office today for a cardiovascular outpatient follow-up. Patient was recently diagnosed with atrial fibrillation with RVR noted during an EKG prior to hernia surgery. He was sent to cardiology for cardiovascular clearance. Patient underwent a echocardiogram and stress test at outside hospital. Pt. denies chest, arm, jaw, or neck discomfort. His exercise tolerance is stable though reduced. Pt. denies symptoms lightheadedness, dizziness, near syncope, or syncopal episodes. Pt. denies edema or claudication issues. Pt. denies orthopnea, PND, fever, chills, blood in urine, blood in stool, or myalgia. Pt. continues to have episodes of palpitations that he explains as like squeezing Jello through a balloon. He is more fatigued and does not have the stamina. He drinks 3-4 cups of coffee a day. He expresses frustration regarding losing his job because he is unable to return to work in a timely manner. Pt. states that he snores and his ex- has mentioned seeing episodes of apnea. 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 Intake Vital Signs02/11/18 Height 5 ft 10 in 02/11/18 Weight: 263 lb 02/11/18 Body Mass Index (BMI) 37.7 02/11/18 Blood Pressure 104/72 02/11/18 Blood Pressure Location Lt brachial Intake Visit Reasons: 1 M FU Equipment Tech Required: No Accompanied by: None Is patient in pain?: Yes (abdominal discomfort) Pain scale (1-10): 2 Allergies amoxicillin trihydrate [From Augmentin] Adverse Reaction (Verified 02/11/18 15:05) Nausea/Vom/Diarrhea potassium clavulanate [From Augmentin] Adverse Reaction (Verified 02/11/18 15:05) Nausea/Vom/Diarrhea Medications calcium carbonate 200 mg calcium (500 mg) chewable tablet 200 mg PO TID tab 12/22/17 [History Confirmed 02/07/18] Varenicline [Chantix] 1 mg PO BID 01/03/18 [History Confirmed 02/07/18] Metoprolol(XL)Succ [Toprol Xl (Beta Keisha)] 50 mg PO DAILY #60 tab 01/10/18 [Rx Confirmed 02/07/18] aspirin 81 mg tablet,delayed release 81 mg PO QDAY tab 01/12/18 [History Confirmed 02/07/18] prednisone 10 mg tablets in a dose pack 10 mg PO PER PKG DIR #21 tab 02/01/18 [Rx Confirmed 02/07/18] Ejection fraction %: 55 to 59 [facility] Medical History Bacterial endocarditis (Chronic 2004) Pulmonary embolism (Chronic) Nicotine dependence (Chronic) Obesity (BMI 30.0-34.9) (Chronic) New onset atrial fibrillation (Acute) Acid reflux (Acute) Colon polyps (Acute) Duodenal ulcer (Acute) Umbilical hernia (Acute) history of colon perforation (Acute) Surgical History H/O umbilical hernia repair (Acute 01/2018) History of colon resection (Acute) Family History Mother Diabetes Heart disease atrial fib, hx ablation Thyroid disorder CAD (coronary artery disease) CABG Grandfather Myocardial infarction Father Cancer bladder Social History Smoking Status: Current every day smoker tobacco type: cigarettes alcohol intake: current alcohol intake frequency: a few times a month Alcohol type: beer substance use type: former substance user Date of last use: 2016 marijuana, cocaine in 20s, marijuana, crack/cocaine caffeine: Yes Type: coffee Number of servings: 3 what type of physical activity do you participate in: none seatbelt use: always do you feel safe at home: Yes ROS Const Const: Positive for fatigue; negative for weakness, body ache, fever(s) or chills ENT ENT: Negative for dizziness Cardio Chest Pain: No Palpitations: No Edema: None Muscle aches with walking: None Resp Respiratory: Negative for SOB with activity, SOB at rest, SOB orthopnea\SOB lying down or paroxysmal nocturnal dyspnea GI GI: Negative nausea, black,tarry stools, bright, red blood in stools or vomiting blood/hematemesis : Negative for hematuria or frequent nighttime urination/ nocturia Musc Musc: Negative for muscle aches/ myalgia Neuro Neuro: Negative for lightheadedness, near syncope, syncope, orthostatic symptoms, weakness or dizziness Endo Endo: Positive for fatigue Cardiology Exam Const Appearance: cooperative, healthy appearing, comfortable and no acute distress Orientation: alert, awake and oriented x3 Head Head: normal to inspection Mouth: oral mucosae normal Neck Neck: no JVD and normal visual inspection Carotids: normal carotid upstroke Chest Chest inspection: normal inspection of the chest and normal respiratory effort Auscultation: Bilateral: Clear to Auscultation Cardio Rate: regular rate Rhythm: regular rhythm Heart sounds: S1 normal and S2 normal; negative rub or gallop GI GI: normal to inspection Neuro General: alert, awake, oriented x3 and CN's II-XI intact bilaterally Skin Skin: no rashes or lesions noted Extremities Pulses: Normal: Right Posterior Tibial Pulse, Left Posterior Tibial Pulse, Right Radial Pulse, Left Radial Pulse Lower Extremity Edema: None: Bilateral Psych Psychological: normal affect Supplemental Info Echocardiogram from January 2018 showed an estimated ejection fraction of 45-50%, normal right ventricular size and systolic function, no significant valvular heart disease, diastolic function consistent with atrial fibrillation, RVSP of 60 mmHg, and no previous study available for comparison. Stress test from January 2018 was negative for stress-induced myocardial ischemia. Ejection fraction was reported at 39%. Assessment AND Plan 1. New onset atrial fibrillation I48.91 Plan - ARJUN Echevarria Echocardiogram from January 2018 showed ejection fraction 45- 50% a stress test from January 2000 AT was negative for stress-induced myocardial ischemia. Patient has not started oral anticoagulation at this time. This will be discussed with once cleared to start oral anticoagulation To confirm that he is cleared from a surgical perspective. Ideally patient will be started on a factor Xa inhibitor and after approximately 3-4 weeks of oral anticoagulation he can undergo a cardioversion. Patient has some reservations due to cost. Thus, Coumadin will be alternative option. He also mentions that he may have a tooth pulled. He was instructed to speak with dentist as soon as possible so that this can be addressed prior to starting oral anticoagulation. We will see the patient back in approximately 1 month. Hopefully at that time he will be on anticoagulation for at least 3 weeks and cardioversion can be scheduled if he remains in atrial fibrillation. 2. Cigarette nicotine dependence without complication F17.210 Plan - ARJUN Echevarria Patient continues to smoke. He received extensive education regarding the health benefits of smoking cessation. We will continue to support and encourage smoking cessation. Plan Detail Additional Comments - ARJUN Echevarria Discussed the above patient with Dr. Borrero, he agrees with the plan of care. Thank you for allowing us to participate in the patients plan of care, if you have any questions please do not hesitate to call. This note was generated using a voice recognition system and there may be incorrect words, spelling or punctuation that were not noted when reviewing the office note prior to saving. Follow Up 1 Month ([facility]) Coding Level of Care Code Off vis,est,level 3 Diagnoses New onset atrial fibrillation I48.91 Cigarette nicotine dependence without complication F17.210 Nicotine product type: cigarettes Substance use status: uncomplicated Coding Level of Care Code Off vis,est,level 3 Diagnoses New onset atrial fibrillation I48.91 Cigarette nicotine dependence without complication F17.210 Nicotine product type: cigarettes Substance use status: uncomplicated 02/11/18 1708 <Electronically signed by Krishna DÍAZ> Date Krishna DÍAZ 02/12/18 1544<Electronically signed by Julio Borrero MD> Cosigner Signature: Date (if applicable) Julio Borrero MD CC: Krishna Mendoza MD SURGERY VISIT REPORT Observed: 02/10/2018 Status: F Source: [place] 2:[address] [facility] [address] [place] [address] OFFICE VISIT Date of Service: 02/07/18 MR#: [id number] Acct: [id number] Name: JANES LANDRY Rep #: [id number] : 1965 Provider: Aravind Douglass MD Age/Sex: 53/M Location: [facility] [place] Status: Signed Intake Intake Visit Reasons: Wound concerns Chief Complaint: f/u umbilical hernia repair DP Equipment Tech Required: No Is patient in pain?: Yes (Incision site) Pain scale (1-10): 4 Allergies amoxicillin trihydrate [From Augmentin] Adverse Reaction (Verified 02/07/18 10:18) Nausea/Vom/Diarrhea potassium clavulanate [From Augmentin] Adverse Reaction (Verified 02/07/18 10:18) Nausea/Vom/Diarrhea Medications calcium carbonate 200 mg calcium (500 mg) chewable tablet 200 mg PO TID tab 12/22/17 [History Confirmed 02/07/18] Varenicline [Chantix] 1 mg PO BID 01/03/18 [History Confirmed 02/07/18] Metoprolol(XL)Succ [Toprol Xl (Beta Keisha)] 50 mg PO DAILY #60 tab 01/10/18 [Rx Confirmed 02/07/18] aspirin 81 mg tablet,delayed release 81 mg PO QDAY tab 01/12/18 [History Confirmed 02/07/18] prednisone 10 mg tablets in a dose pack 10 mg PO PER PKG DIR #21 tab 02/01/18 [Rx Confirmed 02/07/18] PFSH Medical History Bacterial endocarditis (Chronic 2004) Pulmonary embolism (Chronic) Nicotine dependence (Chronic) Obesity (BMI 30.0-34.9) (Chronic) New onset atrial fibrillation (Acute) Acid reflux (Acute) Colon polyps (Acute) Duodenal ulcer (Acute) Umbilical hernia (Acute) history of colon perforation (Acute) Surgical History H/O umbilical hernia repair (Acute 01/2018) History of colon resection (Acute) Family History Mother Diabetes Heart disease atrial fib Thyroid disorder CAD (coronary artery disease) CABG Social History Smoking Status: Current every day smoker tobacco type: cigarettes alcohol intake: current HPI HPI HPI: JANES LANDRY, is a 53 M who presents to the office today for presents for wound recheck Exam Skin Other: Less swelling is identified. There is still a scab superiorly and there is a dime size area of skin loss that were going to have on the upper aspect of his umbilicus hematoma seems slightly smaller. There is no signs of cellulitis. Assessment AND Plan Problems 1. Aftercare Z51.89 Plan I want him continue to do the cleaning with peroxide and putting Neosporin on the area. And I will see him back in another couple days to make sure that everything is continuing to progress in a positive manner. Coding Level of Care Code Global Post Op Diagnoses Aftercare Z51.89 02/10/18 1454 <Electronically signed by Aravind Douglass MD> Date Aravind Douglass MD Cosigner Signature: Date (if applicable) CC: SURGERY VISIT REPORT Observed: 02/10/2018 Status: F Source: [facility] 1:40 PM [facility] REPOSITORY [facility] [address] [address] OFFICE VISIT Date of Service: 02/10/18 MR#: [id number] Acct: [id number] Name: JANES LANDRY Rep #: [id number] : 1965 Provider: Aravind Douglass MD Age/Sex: 53/M Location: [facility] Status: Signed Intake Intake Visit Reasons: F/U HERNIA SURGERY 01/25/18 Chief Complaint: f/u umbilical hernia repair DP Equipment Tech Required: No Is patient in pain?: No Allergies amoxicillin trihydrate [From Augmentin] Adverse Reaction (Verified 02/07/18 10:18) Nausea/Vom/Diarrhea potassium clavulanate [From Augmentin] Adverse Reaction (Verified 02/07/18 10:18) Nausea/Vom/Diarrhea Medications calcium carbonate 200 mg calcium (500 mg) chewable tablet 200 mg PO TID tab 12/22/17 [History Confirmed 02/07/18] Varenicline [Chantix] 1 mg PO BID 01/03/18 [History Confirmed 02/07/18] Metoprolol(XL)Succ [Toprol Xl (Beta Keisha)] 50 mg PO DAILY #60 tab 01/10/18 [Rx Confirmed 02/07/18] aspirin 81 mg tablet,delayed release 81 mg PO QDAY tab 01/12/18 [History Confirmed 02/07/18] prednisone 10 mg tablets in a dose pack 10 mg PO PER PKG DIR #21 tab 02/01/18 [Rx Confirmed 02/07/18] PFSH Medical History Bacterial endocarditis (Chronic 2004) Pulmonary embolism (Chronic) Nicotine dependence (Chronic) Obesity (BMI 30.0-34.9) (Chronic) New onset atrial fibrillation (Acute) Acid reflux (Acute) Colon polyps (Acute) Duodenal ulcer (Acute) Umbilical hernia (Acute) history of colon perforation (Acute) Surgical History H/O umbilical hernia repair (Acute 01/2018) History of colon resection (Acute) Family History Mother Diabetes Heart disease atrial fib Thyroid disorder CAD (coronary artery disease) CABG Social History Smoking Status: Current every day smoker tobacco type: cigarettes alcohol intake: current HPI HPI HPI: JANES LANDRY, is a 53 M who presents to the office today for wound recheck Exam Skin Other: I am pleased with the progression of the wound. The dime size area has not gotten any larger of the hematoma underneath the wound is getting smaller the surrounding skin looks viable and there is no signs of cellulitis. Assessment AND Plan Problems 1. Aftercare Z51.89 Plan His incision is healing up. Remarkably the surrounding skin and tissues look viable without signs of infection. The dime size area of skin we are going to lose but hopefully with the fact that the hematoma is getting smaller and does not appear to be infected I think we can salvage this incision. At this point I have no problems with him getting back to work with a little bit of light duty and then going back to full-time work. He can take care of this with twice daily dressing changes and I think he will do fine with this. Coding Level of Care Code Global Post Op Diagnoses Aftercare Z51.89 02/10/18 1340 <Electronically signed by Aravind Douglass MD> Date Aravind Douglass MD Cosigner Signature: Date (if applicable) CC: Krishna Mendoza MD SURGERY VISIT REPORT Observed: 02/10/2018 Status: F Source: [place] TIMBER 12:56 PM [facility] REPOSITORY [facility] [address] [place] [address] OFFICE VISIT Date of Service: 02/04/18 MR#: [id number] Acct: [id number] Name: JANES LANDRY Rep #: [id number] : 1965 Provider: Aravind Douglass MD Age/Sex: 53/M Location: [facility] Status: Signed Intake Intake Visit Reasons: Post Op Concerns Chief Complaint: f/u umbilical hernia repair DP Equipment Tech Required: No Is patient in pain?: No Allergies amoxicillin trihydrate [From Augmentin] Adverse Reaction (Verified 02/07/18 10:18) Nausea/Vom/Diarrhea potassium clavulanate [From Augmentin] Adverse Reaction (Verified 02/07/18 10:18) Nausea/Vom/Diarrhea Medications calcium carbonate 200 mg calcium (500 mg) chewable tablet 200 mg PO TID tab 12/22/17 [History Confirmed 02/07/18] Varenicline [Chantix] 1 mg PO BID 01/03/18 [History Confirmed 02/07/18] Metoprolol(XL)Succ [Toprol Xl (Beta Keisha)] 50 mg PO DAILY #60 tab 01/10/18 [Rx Confirmed 02/07/18] aspirin 81 mg tablet,delayed release 81 mg PO QDAY tab 01/12/18 [History Confirmed 02/07/18] prednisone 10 mg tablets in a dose pack 10 mg PO PER PKG DIR #21 tab 02/01/18 [Rx Confirmed 02/07/18] [facility] Medical History Bacterial endocarditis (Chronic 2004) Pulmonary embolism (Chronic) Nicotine dependence (Chronic) Obesity (BMI 30.0-34.9) (Chronic) New onset atrial fibrillation (Acute) Acid reflux (Acute) Colon polyps (Acute) Duodenal ulcer (Acute) Umbilical hernia (Acute) history of colon perforation (Acute) Surgical History H/O umbilical hernia repair (Acute 01/2018) History of colon resection (Acute) Family History Mother Diabetes Heart disease atrial fib Thyroid disorder CAD (coronary artery disease) CABG Social History Smoking Status: Current every day smoker tobacco type: cigarettes alcohol intake: current HPI HPI HPI: JANES LANDRY, is a 53 M who presents to the office today for breakdown of skin at his hernia site. Exam Skin Other: Patient has a hematoma underneath his incision. There is breakdown of about a dime size piece of skin in this area. The rest of the incision looks like it is viable. There is no overt cellulitis anywhere on his belly. And his incisional hernia is appropriately tender. Assessment AND Plan Problems 1. Skin breakdown L90.9 Plan At this point I want the patient to wash this area with soap and water and use peroxide on it. I am hoping that we will not need to do any further debridement I am also hoping that we are not going to lose the umbilicus in its entirety. A lot will depend on how this changes over the next 24-48 hours. I am going to see him back in the office early next week. Coding Level of Care Code Global Post Op Diagnoses Skin breakdown L90.9 02/10/18 1256 <Electronically signed by Aravind Douglass MD> Date Aravind Douglass MD Cosigner Signature: Date (if applicable) CC: Krishna Mendoza MD SURGERY VISIT REPORT Observed: 02/01/2018 Status: F Source: [facility] TIM[place] 3:[address] [facility] [address] [address] OFFICE VISIT Date of Service: 02/01/18 MR#: [id number] Acct: [id number] Name: JANES LANDRY Rep #: [id number] : 1965 Provider: Mirella Hinojosa PA-C Age/Sex: 53/M Location: [facility] Status: Signed Intake Intake Visit Reasons: Hernia Surgery DP 01/25 AND discuss c-scope Chief Complaint: f/u umbilical hernia repair DP Equipment Tech Required: No Is patient in pain?: Yes Allergies amoxicillin trihydrate [From Augmentin] Adverse Reaction (Verified 02/01/18 09:49) Nausea/Vom/Diarrhea potassium clavulanate [From Augmentin] Adverse Reaction (Verified 02/01/18 09:49) Nausea/Vom/Diarrhea Medications calcium carbonate 200 mg calcium (500 mg) chewable tablet 200 mg PO TID tab 12/22/17 [History Confirmed 02/01/18] Varenicline [Chantix] 1 mg PO BID 01/03/18 [History Confirmed 02/01/18] Metoprolol(XL)Succ [Toprol Xl (Beta Keisha)] 50 mg PO DAILY #60 tab 01/10/18 [Rx Confirmed 02/01/18] aspirin 81 mg tablet,delayed release 81 mg PO QDAY tab 01/12/18 [History Confirmed 02/01/18] prednisone 10 mg tablets in a dose pack 10 mg PO PER PKG DIR #21 tab 02/01/18 [Rx Confirmed 02/01/18] [facility] Medical History Bacterial endocarditis (Chronic 2004) Pulmonary embolism (Chronic) Nicotine dependence (Chronic) Obesity (BMI 30.0-34.9) (Chronic) New onset atrial fibrillation (Acute) Acid reflux (Acute) Colon polyps (Acute) Duodenal ulcer (Acute) Umbilical hernia (Acute) history of colon perforation (Acute) Surgical History H/O umbilical hernia repair (Acute 01/2018) History of colon resection (Acute) Family History Mother Diabetes Heart disease atrial fib Thyroid disorder CAD (coronary artery disease) CABG Social History Smoking Status: Current every day smoker tobacco type: cigarettes alcohol intake: current HPI HPI HPI: JANES LANDRY, is a 53 M I am following for umbilical hernia and screening colonoscopy. Dr. Douglass performed an umbilical hernia repair with mesh on 01/25/18. Patient tolerated the procedure well. Patient notes minimal amount of incisional discomfort. He denies nausea, vomiting. Appetite has returned to normal. He has noted a rash over the entire abdomen. Patient also is in need of a colonoscopy. Patient noted he had a previous colonoscopy in 1997 which had polyps removed at that time. Patient denies abdominal symptoms or change in bowel habits. Exam Const General: cooperative, healthy appearing, comfortable, no acute distress GI Inspection: normal to inspection, incision (c/d/i. Dried blood on steri-strips. ), obesity Assessment AND Plan Problems 1. Umbilical hernia without obstruction or gangrene K42.9 2. Encounter for screening colonoscopy Z12.11 Plan - Recommend no lifting greater than 20 pounds for 8 weeks total. - Patient desires to wait another 1 month prior to proceeding with a colonoscopy - Follow-up in 1 month for colonoscopy consult and scheduling - Recommend prednisone taper for the rash Medications New: Coding Level of Care Code Global Post Op Diagnoses Umbilical hernia without obstruction or gangrene K42.9 Encounter for screening colonoscopy Z12.11 02/01/18 1548 <Electronically signed by Mirella Hinojosa PA-C> Date Mirella Cardoza Signature: Date (if applicable) CC: Krishna Mendoza MD OPERATIVE REPORT Observed: 01/26/2018 Status: F Source: [facility] [place] 8:44 AM [facility] REPOSITORY [facility] Medical Records Department [address] [place] [address] Operative Report 01/25/18 1425 MR#: [id number] Acct: [id number] Name: JANES LANDRY Rep #: [id number] : 1965 53 From: Aravind Douglass MD PCP: Krishna Mendoza MD Status: [facility] [place] [facility] [place] (1) Umbilical hernia without obstruction or gangrene Status: Acute Report of Operation Date of Procedure: 01/25/18 Pre-Operative Diagnosis: k42.9 umbilical hernia without obstruction or gangrene Post-Operative Diagnosis: Same Surgery/Procedure Performed:: Umbilical hernia repair with mesh Type of Anesthesia:: General Anesthesiologist: Reinaldo Jha Estimated Blood Loss (mL): < 25 cc Description of Procedure: Patient was brought into the operating room. He was placed in the supine position. Under excellent general endotracheal intubation the abdomen was sterilely prepped and draped in the usual fashion. Local was injected. A curvilinear incision was made above the umbilicus. Dissection was carried down hernia was identified I dissected the fatty tissue off of the hernia and placed it back into its preperitoneal space. I dissected free a preperitoneal window circumferentially around this umbilical defect no other defects were palpated. I placed a medium ventral X hernia patch into the wound. It laid completely flat. I circumferentially tacked it to the fascia with #1 Nurolon's. All these in interrupted [id number] fashion. I injected local into the surrounding tissue. The wound was brought together with deep dermal stitches of 3-0 Vicryl. A running 4-0 Monocryl. Steri-Strips are applied [place] cotton was applied sterile dressings were applied the patient tolerated the procedure well. - Admit VTE Documentation VTE Present on Admission: No VTE Mechan Device Prophylaxis: SCD's VTE Pharm Prophylaxis ordered?: No Reason prophylaxis not ordered:: Treatment Not Indicated 01/26/18 0844 <Electronically signed by Aravind Douglass MD> Date Aravind Douglass MD CC: Aravind Douglass MD; Krishna Mendoza MD Signed DISCHARGE INSTRUCTION Observed: 01/25/2018 Status: F Source: [place] 2:25 PM [facility] REPOSITORY [facility] Medical Records Department [address] [place] [address] Instructions for Home/Discharge Instructions 01/25/18 1424 MR#: [id number] Acct: [id number] Name: JANES LANDRY Rep #: [id number] : 1965 53 From: Aravind Douglass MD PCP: Krishna Mendoza MD [place] [facility] [place] Diet: Light diet - advance as tolerated Discharge Activity: Return to Normal Activity, May Drive - when you are no longer taking narcotic pain medications., May Shower - with the bandage in place 1-2 days after surgery. Lifting Restrictions: 20 pounds for 8 weeks. Additional Activity Instructions:: Climbing stairs is fine, walking is encouraged. Sitting in bed may be uncomfortable. Sitting up using your lateral muscles (sitting up sideways) is usually more comfortable. Do not drive, work heavy equipment of sign legal documents for 24 hours. If your hernia repair was an ingunial repair, you may have scrotal swelling, an ice pack and/or athletic support can provide more comfort. Pain medications may cause nausea, you should typically eat light foods as you take your pain medications. Pain medications may also cause constipation. If you have difficulty with this, discuss with your doctor. Call your doctor if your incision/area has: Continuous Slow Oozing, Sudden Increased Bleeding, Increased Pain/ Swelling, Increased Redness, Foul Smelling Discharge Call your doctor if you observe: Fever of 101 or Higher Suture Line Care: Avoid Pulling/Pushing, Avoid Pinching/Bending Additional Dressing/Incision Instructions:: Leave the operative bandage on for 2-3 days. When you remove the bandage, leave the steri-strips on place until your follow up appointment or they fall off. Allergies/Adverse Reactions: Allergies amoxicillin trihydrate [From Augmentin] Adverse Reaction (Verified 01/12/18 15:51) Nausea/Vom/Diarrhea potassium clavulanate [From Augmentin] Adverse Reaction (Verified 01/12/18 15:51) Nausea/Vom/Diarrhea Medications to take at Discharge calcium carbonate 200 mg calcium (500 mg) chewable tablet 200 mg PO TID tab 12/22/17 Varenicline [Chantix] 1 mg PO BID 01/03/18 Metoprolol(XL)Succ [Toprol Xl (Beta Keisha)] 50 mg PO DAILY #60 tab 01/10/18 aspirin 81 mg tablet,delayed release 81 mg PO QDAY tab 01/12/18 Oxycodone HCl/Acetaminophen [Percocet 5/325] 1 - 2 tab PO Q4H PRN PRN 4 Days #30 tab 01/25/18 The following prescriptions were given: Oxycodone HCl/Acetaminophen [Percocet 5/325] 1 - 2 tab PO Q4H PRN PRN 4 Days #30 tab PRN Reason: Pain Primary Care Physician: Krishna Mendoza MD [Primary Care Provider] - Please Follow Up With: Aravind Douglass MD - [phone] When: Plan to have a follow up appointment in 7 days. Call to schedule. 01/25/18 0433 <Electronically signed by Aravind Douglass MD> Date Aravind Douglass MD CC: Krishna Mendoza MD [place] CARDIAC STRESS Observed: 01/18/2018 Status: F Source: [facility] (SPECT) Monique/KATHRYN 9:44 AM [place] [address] Patient: MARICRUZ LANDRYChad Phone#: : 1965 Age: 53 Gender: M Pt. Type: Out Account: [id number] Location: Ordering: [facility] Exam Date: 01/18/2018/8:53 Family Phys: KAUR BENNETT Charge Code: [id number] Physician: DR. KRISHNA MENDOZA [place] Order #: [id number] DLP Dose#: PROCEDURE: CARDIAC STRESS SPECT WITH LEXISCAN HISTORY: 53-year-old male with new onset atrial fibrillation INDICATIONS: Shortness of breath and atrial fibrillation TECHNIQUE: Resting and post Lexiscan stress SPECT images acquired in the horizontal long, vertical long and short axis views. Protocol: Lexiscan Duration: 0.4mg over 10 seconds Peak Heart Rate: 206 bpm, which is 122% of maximum predicted heart rate. Workload: not applicable REST DOSE: 10.1 mCi Sestamibi. STRESS DOSE: 33.2 mCi Sestamibi. INTERPRETATION: Resting Images: Reduced radiotracer uptake in the basilar inferior and inferoseptal wall. There is also reduced with tracer uptake in the distal anterior and anteroseptal region. Post Lexiscan stress Images: Improvement in the radiotracer uptake in the distal anterior and anteroseptal region suggestive of soft tissue attenuation artifact. Persistence of the reduced radiotracer uptake in the basal to mid inferior wall. The rest of the myocardium has homogeneous radiotracer uptake. Gated SPECT/wall motion: Mild diffuse global hypokinesis with reduced left ventricle systolic function, ejection fraction 39%. Left ventricle end diastolic volume 136 mL. TID 1.01. CONCLUSION: 1. No evidence of inducible ischemia. 2. Fixed defect in the basal to mid inferior wall likely secondary to diaphragmatic attenuation artifact; although prior myocardial infarction cannot be excluded. Continued Report - Page 2 of 2 Patient: MARICRUZ LANDRY Phone#: : 1965 Age: 53 Gender: M Pt. Type: Out Account: [id number] Location: Ordering: [facility] Exam Date: 01/18/2018/8:53 Family Phys: KAURIZABELLA BENNETT Charge Code: [id number] Physician: DR. KRISHNA MENDOZA [place] Order #: [id number] DLP Dose#: 3. Mild diffuse global hypokinesis with reduced left ventricle systolic function, ejection fraction 39%. 4. Of note, patient was in atrial fibrillation throughout the study. 5. No prior study available for comparison. Dictated by: JENNA LAUGHLIN on 01/18/2018 at 10:06 Approved by: JENNA LAUGHLIN on 01/18/2018 at 10:06 NM EXERCISE STRESS Observed: 01/18/2018 Status: F Source: [facility] TEST (W/CARDIAC STUDY 8:47 AM [place] [address] Patient: MARICRUZ LANDRY Phone#: : 1965 Age: 53 Gender: M Pt. Type: Out Account: [id number] Location: Ordering: [facility] Exam Date: 01/18/2018/6:55 Family Phys: DR. KRISHNA MENDOZA Charge Code: [id number] Physician: [place] Order #: [id number] DLP Dose#: PROCEDURE: ELECTROCARDIOGRAM STRESS TEST HISTORY: 53-year-old male with atrial fibrillation INDICATIONS: Dyspnea with exertion, new onset a. fib TECHNIQUE: Electrocardiogram stress test was performed using the protocol listed below. STRESS RESULTS: Protocol: Lexiscan Duration: 0.4mg over 10 seconds Resting Heart Rate: 98 bpm. Resting Blood Pressure: 96/80 mmHg Peak Heart Rate: 206 which is 122% of maximum predicted heart rate Blood pressure with Lexiscan With Lexiscan infusion blood pressure decreased to85/38 Workload: 1.70 METs. Symptoms with stress: No Lexiscan induced chest pain. EKG Data EKG at Baseline: Atrial fibrillation with heart rate of 114 beats per minute. Abnormal EKG EKG with Stress: No acute ST-T wave changes suggestive of ischemia. CONCLUSION: 1. Negative Lexiscan EKG stress test for ischemia. 2. Patient was in atrial fibrillation throughout the study. 3. Normal physiological response to Lexiscan. 4. Nuclear images will be reviewed and reported separately. Dictated by: JENNA LAUGHLIN on 01/18/2018 at 9:55 Continued Report - Page 2 of 2 Patient: MARICRUZ LANDRYChad Phone#: : 1965 Age: 53 Gender: M Pt. Type: Out Account: [id number] Location: Ordering: [facility] Exam Date: 01/18/2018/6:55 Family Phys: DR. KRISHNA MENDOZA Charge Code: [id number] Physician: [place] Order #: [id number] DLP Dose#: Approved by: JENNA LAUGHLIN on 01/18/2018 at 9:55 CV ECHO COMPLETE Observed: 01/18/2018 Status: F Source: [facility] 7:44 AM [place] [address] Patient: MARICRUZ LANDRY Phone#: : 1965 Age: 53 Gender: M Pt. Type: Out Account: [id number] Location: Ordering: [facility] Exam Date: 01/18/2018/6:58 Family Phys: KAUR BENNETT Charge Code: [id number] Physician: [place] Order #: [id number] DLP Dose#: PROCEDURE: ECHOCARDIOGRAM WITH DOPPLER AND COLOR FLOW HISTORY: 53-year-old male with atrial fibrillation INDICATIONS: Atrial fibrillation TECHNIQUE: A 2-D ultrasound, color spectral Doppler and M-mode evaluation of the heart and great vessels. PATIENT MEASUREMENTS: Height (in.): 68 BSA: 2.3 Weight (lbs.): 250 BP: 117/70 Accounts Manager: BERNIE M MODE 2D MEASUREMENTS AND CALCULATIONS: LVIDd: 4.13 cm LVIDs: 2.92 cm IVSd: 1.40 cm LVPWd: 1.51 cm FS: 29.28 % Ao Root diam: 3.21 cm LA diam: 6.02 cm LA Volume Index: 30.9 mL/m2 LA A4 Area: 24.94 cm2 RA A4 Area: 18.2 cm2 RVDd: 2.79 cm TAPSE: 14 mm DOPPLER MEASUREMENTS AND CALCULATIONS MITRAL MV E MAX tanvi: 68.05 cm/s Lat Peak E' Tanvi 10 cm/s Septal Peak E' TANVI 8 cm/s Lateral E./E.' 7 Medial E./E.' 8 Continued Report - Page 2 of 3 Patient: MARICRUZ LANDRY Phone#: : 1965 Age: 53 Gender: M Pt. Type: Out Account: [id number] Location: Ordering: [facility] Exam Date: 01/18/2018/6:58 Family Phys: KAUR BENNETT Charge Code: [id number] Physician: [place] Order #: [id number] DLP Dose#: AORTIC Ao V2 max: 120.65 cm/s Ao max P.82 mm[Hg] LV V1 Max 65.52 cm/s LV V1 Max PG 1.72 mm[Hg] PULMONIC PA V2 Max 80.99 cm/s PA Max PG 2.62 mm[Hg] TRICUSPID TR Max Tanvi 177.51 cm/s TR max PG 12.70 mm[Hg] RVSP 16 mmHg 2D/M-MODE AND COLOR FLOW LEFT VENTRICLE: Mild concentric left ventricle hypertrophy. Normal wall motion. Low normal left ventricle systolic function, ejection fraction 45-50% (patient was in rapid atrial fibrillation during the study which could contribute to his low EF). Indeterminate diastolic function secondary to underlying atrial fibrillation. WALL MOTION: 1 - Basal anterior: Normal. 7 - Mid anterior: Normal. 13 - Apical anterior: Normal. 2 - Basal anteroseptal: Normal. 8 - Mid anteroseptal: Normal. 14 - Apical septal: Normal. 3 - Basal inferoseptal: Normal. 9 - Mid inferoseptal: Normal. 15 - Apical inferior: Normal. 4 - Basal inferior: Normal. 10-Mid inferior: Normal. 16 - Apical lateral: Normal. 5 - Basal inferolateral: Normal. 11-Mid inferolateral: Normal. 6 - Basal anterolateral: Normal. 12-Mid anterolateral: Normal. RIGHT VENTRICLE: Normal size and systolic function LEFT ATRIUM: Normal RIGHT ATRIUM: Normal ATRIAL SEPTUM: Grossly normal MITRAL VALVE: Normal mitral valve leaflet structure and mobility. Trace mitral regurgitation. TRICUSPID VALVE: Normal leaflet structure and mobility. Trace tricuspid regurgitation. AORTIC VALVE: Trileaflet aortic valve with normal leaflet structure and mobility. No significant aortic stenosis or regurgitation. PULMONIC VALVE: Normal leaflet structure and mobility. Trace pulmonic insufficiency. AORTIC ROOT: Normal size IVC/SVC: Normal size and normal respirophasic response PERICARDIUM: No significant pericardial effusion. Prominent fat pad noted. CONCLUSION: 1. Mild concentric left ventricle hypertrophy with low normal left and systolic function, ejection fraction 45-50% (patient was in rapid A. fib during the study which contribute to his low EF). Continued Report - Page 3 of 3 Patient: MARICRUZ LANDRY. Phone#: : 1965 Age: 53 Gender: M Pt. Type: Out Account: [id number] Location: Ordering: JAYCEE THOMAS Exam Date: 01/18/2018/6:58 Family Phys: KAUR BENNETT Charge Code: 478118 Physician: [place] Order #: [id number] DLP Dose#: 2. Normal right ventricle size and systolic function. 3. No significant valvular heart disease. 4. Diastolic function consistent with atrial fibrillation. 5. RVSP estimated to be 16 mmHg. 6. No prior study available for comparison. Dictated by: JENNA LAUGHLIN on 01/18/2018 at 8:54 Approved by: JENNA LAUGHLIN on 01/18/2018 at 8:54 CARDIOLOGY VISIT Observed: 01/12/2018 Status: F Source: [place] TIM[place] REPORT 4:54 PM [facility] REPOSITORY [facility] [address] [place] [address] OFFICE VISIT Date of Service: 01/12/18 MR#: [id number] Acct: [id number] Name: JANES LANDRY Rep #: [id number] : 1965 Provider: Julio Borrero MD Age/Sex: 53/M Location: [facility] Status: Signed HPI HPI Chief Complaint: Irregular heartbeat. Details: JANES LANDRY, is a 53 M who presents to the office today for an initial evaluation of his heart. He says that back in June he started experiencing episodes of fatigue as well as dizziness and palpitations. He also had some episodes of chest discomfort. He really did not think much of it but then more recently he was scheduled to go have hernia surgery and EKG was done he was noted to be in atrial fibrillation with rapid ventricular response rate in the procedure was canceled and he was sent for cardiac clearance. He says that he does get occasionally dizzy with minimal chest pain he has had no cough no paroxysmal nocturnal dyspnea pedal edema he drinks about a pot of coffee a day. His electrocardiogram on January 10 demonstrated atrial for ablation with a rate of 114 bpm. His physical exam today demonstrates clear lung nair irregular heart rate and no pedal edema. Intake Vital Signs01/12/18 Height 5 ft 9 in Intake Visit Reasons: Pre op, new afib, [facility] ER 3-5 (NEW to [facility]) Allergies amoxicillin trihydrate [From Augmentin] Adverse Reaction (Verified 01/12/18 15:51) Nausea/Vom/Diarrhea potassium clavulanate [From Augmentin] Adverse Reaction (Verified 01/12/18 15:51) Nausea/Vom/Diarrhea Medications calcium carbonate 200 mg calcium (500 mg) chewable tablet 200 mg PO TID tab 12/22/17 [History Confirmed 01/12/18] Varenicline [Chantix] 1 mg PO BID 01/03/18 [History Confirmed 01/12/18] Metoprolol(XL)Succ [Toprol Xl (Beta Keisha)] 50 mg PO DAILY #60 tab 01/10/18 [Rx Confirmed 01/12/18] aspirin 81 mg tablet,delayed release 81 mg PO QDAY tab 01/12/18 [History Confirmed 01/12/18] [facility] Medical History Bacterial endocarditis (Chronic 2004) Pulmonary embolism (Chronic) Nicotine dependence (Chronic) Obesity (BMI 30.0-34.9) (Chronic) New onset atrial fibrillation (Acute) Acid reflux (Acute) Colon polyps (Acute) Duodenal ulcer (Acute) Umbilical hernia (Acute) history of colon perforation (Acute) Surgical History History of colon resection (Acute) Family History Mother Diabetes Heart disease atrial fib Thyroid disorder CAD (coronary artery disease) CABG Social History Smoking Status: Current every day smoker tobacco type: cigarettes alcohol intake: current ROS Const Const: Negative for fatigue, weakness, difficulty sleeping, frequent falls, headache(s) or excessive sweating Eyes Eyes: Negative for loss of peripheral vision, transient loss of vision, blurry vision or double vision ENT ENT: Negative for headache(s), dizziness, Nosebleed/epistaxis or balance problems Cardio Chest Pain: No Palpitations: Yes Edema: None Muscle aches with walking: None Additional Details: States in June while at work, developed SOB, diaphoretic, dizzy and had to lay on the ground. Has been SOB with little ambulation and has had palpitations since that event. Resp Respiratory: Negative for SOB with activity, SOB at rest, SOB orthopnea\SOB lying down or paroxysmal nocturnal dyspnea GI GI: Negative nausea or heartburn : Negative for hematuria Musc Musc: Negative for muscle aches/ myalgia, muscle weakness, joint pain or balance problems Skin Skin: Negative non-healing lesions, unusual bruising or rash Neuro Neuro: Negative for weakness, frequent falls, blurry vision, headache(s), dizziness, lightheadedness, orthostatic symptoms or double vision Harjinder Hematologic/Lymphatic: Negative for easy bruising Endo Endo: Negative for fatigue, excessive sweating or increased thirst/drinking Psych Psych: Negative for anxiety or depression Allergy Allergy/Immunology: Negative for hives, Negative for rash Cardiology Exam Const Appearance: cooperative, healthy appearing, well developed, well groomed and no acute distress Nutritional Appearance: well nourished and average body habitus Orientation: alert, awake and oriented x3 Head Head: normal to inspection, normocephalic and atraumatic Ears: hearing grossly normal bilaterally and external ears normal Nose: external nose normal, nasal mucous membranes and turbinates normal, nares normal, septum normal, no nasal discharge Face and Sinus: face symmetric Mouth: oral mucosae normal, tongue normal, oropharynx normal and moist mucous membranes Teeth and gingiva: dentition normal Throat: posterior oropharynx normal, tonsils normal and uvula midline Eyes General: appearance normal, both eyes and all related structures Eyelids: eyelids normal Conjunctivae: conjunctivae normal Pupils: PERRL, normal by confrontation and accommodation normal EOM: EOM intact bilaterally Neck Neck: normal visual inspection, trachea midline and no JVD JVD: +5 Carotids: normal carotid upstroke and bounding pulses Chest Chest inspection: normal inspection of the chest, symmetric chest movement and normal respiratory effort Auscultation: Bilateral: Clear to Auscultation Cardio Palpation: normal PMI Rhythm: irregular rhythm Heart sounds: S1 normal and S2 normal GI GI: normal to inspection, soft, no hepatosplenomegaly and bowel sounds present Neuro General: alert, awake, oriented x3, no focal sensory deficit, gait normal and moves all extremities Skin Skin: no rashes or lesions noted Extremities Pulses: Normal: Right Femoral Pulse, Left Femoral Pulse, Right Dorsalis Pedis Pulse, Left Dorsalis Pedis Pulse, Right Posterior Tibial Pulse, Left Posterior Tibial Pulse, Right Radial Pulse, Left Radial Pulse Lower Extremity Edema: None: Bilateral Musculoskel Musculoskeletal: No joint tenderness Psych Psychological: normal affect Assessment AND Plan 1. New onset atrial fibrillation I48.91 Plan He does have documented atrial fibrillation his ventricular response rate was uncontrolled then but he has been started on beta-keisha which will be continued. He is scheduled to have hernia surgery and I am trying to see whether we can coordinate the above. Would like to evaluate him by obtaining an echocardiogram as well as a pharmacologic myocardial perfusion stress test. Depending on the results of the above further recommendations will be made. 2. Preop cardiovascular exam Z01.810 Plan With regards to his hernia surgery my recommendation would be that if his stress test and echocardiogram are normal then he will begin his beta-keisha and undergo the surgery. After that he can be started on Xarelto 1 a day and then we will see him within 3-4 weeks and schedule a interval cardioversion. I have explained the above to him he understands and agrees to proceed. He is trying to coordinate this with his insurance plan as well. Plan Detail Follow Up 1 Month (jhr) Coding Level of Care Code Off vis,new,level 4 Diagnoses New onset atrial fibrillation I48.91 Preop cardiovascular exam Z01.810 Coding Level of Care Code Off vis,new,level 4 Diagnoses New onset atrial fibrillation I48.91 Preop cardiovascular exam Z01.810 01/12/18 6034 <Electronically signed by Julio Borrero MD> Date Julio Borrero MD Cosigner Signature: Date (if applicable) CC: Krishna Mendoza MD EMERGENCY DEPARTMENT Observed: 01/10/2018 Status: F Source: BIG TIMBER SUMMARY 4:10 PM [facility] REPOSITORY [facility] Medical Records Department [address] [place] [address] Emergency Department Summary 01/10/18 1203 MR#: [id number] Acct: [id number] Name: JANES LANDRY Rep #: [id number] : 1965 53 From: Antolin Kauffman PCP: Krishna Mendoza MD Status: DEP ER - ER Visit Summary Date of Service: 01/10/18 Chief Complaint: Atrial fibrillation History of Present Illness: The patient is a 53 M sent from preop for findings of A. fib on EKG. Patient states that intermittent palpitations for a while. He complained of exertional dyspnea. Patient does smoke. Currently on bronchitis treatment day on Levaquin and preparations for his surgery today. Supposed to have an umbilical hernia repair by Dr. Douglass. No fevers. No nausea or vomiting. No stroke history. Denies history of CHF, diabetes, hypertension. No diagnosis of A. fib in the past. Currently denies symptoms. He states he had a PE in 1994 post surgery with infections. He is off anticoagulation medications. Physical Examination: General: Alert and oriented 3, no acute distress HEENT: Normocephalic, atraumatic. Moist mucosa membranes Neck: supple, nontender. Cardiovascular: Irregular, tachycardic rate and rhythm, no murmurs Respiratory: Normal breath sounds, symmetric, no distress Abdomen: Soft, nontender, nondistended Extremities: Nontender, no edema, pulses intact 4 Neuro: no focal neurological deficits. Test Results: Reviewed EKG sent up with the patient with A. fib, rate of 114, no ST or T-wave changes. CBC: White count 14.8. Hemoglobin 16. ENT normal. D-dimer 0.32. Troponin negative. Chest x-ray: No acute process Emergency Department Course and Treatment: Patient currently asymptomatic, EKG reviewed with Jina marie with RVR rate of 114. No acute changes. I did check labs troponin which were negative. Exertional dyspnea with tachycardia, low risk Wells criteria for PE. D-dimer obtained which was negative. Chads score is a 0. I did speak with his surgeon, Dr. Douglass on arrival, states with the new onset A. fib, anesthesia would not perform procedures for operation today. He will need cardiac clearance prior to his surgery and it would need to be rescheduled. He was given metoprolol 50 mg orally. Heart rate improved in the 80s and is controlled. Blood pressure stable systolic 120s. I did discuss with cardiology, he will be placed on metoprolol, he will take aspirin daily for his A. fib. Discussed with nursing for Dr. Borrero. He is given a follow-up for outpatient evaluation and cardiac clearance on the 14 of this month. Patient discharged with outpatient follow-up. Pulse ox is stable. Treatment Plan: [] Disposition: Discharge Impression: 1. New onset atrial fibrillation This note was generated with [employer] software. It may contain incorrect words, spelling, and punctuation that were not noted in review of the chart prior to signing ED Disposition - Plan for ED Patient: Disposition: Home or Assisted Living Chief Complaint: Palpitations Diagnosis: Atrial fibrillation Instructions: ED Afib Prescriptions: Metoprolol(XL)Succ [Toprol Xl (Beta Keisha)] 50 mg PO DAILY #60 tablet Referrals: Krishna Mendoza MD [Primary Care Provider] - Julio Borrero MD [STAFF PHYSICIAN] - [place] appointment Additional Instructions: Take aspirin 325 mg daily along with new medication. What to do if you have Problems For any increased pain, shortness of breath, bleeding, nausea or vomiting, chest pain, or any unexpected problems, contact your Primary Care Provider. Call [facility] ([phone]) or report to the closest Emergency Room. Call 911 if necessary. 01/10/18 1610 <Electronically signed by Antolin Kauffman> Date Antolin Kauffman Cosigner Signature (If Indicated): Date CC: Krishna Mendoza MD CHEST 1 VIEW Observed: 01/10/2018 Status: F Source: BIG TIMBER (PORTABLE) 12:03 PM [facility] REPOSITORY [facility] Imaging Services [address] [place] [address] Chest 1 View (Portable) MR#: [id number] Acct: [id number] Name: JANES LANDRY Rep #: [id number] : 1965 M 53 From: Ramon King DO PCP: Krishna Mendoza MD Status: REG ER Study: Chest 1 View (Portable) Date of Exam: 01/10/18 Exam# [id number] Ordering Dr: Antolin Parker DO STUDY: X-RAY CHEST REASON FOR EXAM: Male, 53 years old. Dyspnea and A. fib TECHNIQUE: Single AP portable view of the chest. COMPARISON: 01/14/2015 FINDINGS: The lungs are clear and expanded. There is no demonstrated pleural abnormality. There is mild cardiac enlargement. Normal mediastinum and jesus. Normal visualized pulmonary arteries. Normal visualized aortic arch and descending thoracic aorta. Normal visualized thoracic spine. Normal visualized ribs, clavicles, and shoulders. There is no demonstrated abnormality of the visualized soft tissue structures of the upper abdomen. RAD/Chest 1 View (Portable) IMPRESSION: No acute findings Electronically Signed: Ramon King DO at 12:54 EST Tel , Service support , CC: Krishna Mendoza MD; Antolin Parker Chess Instructor: Signed CBC W/DIFF, AUTOMATED Collected: 01/10/2018 Status: C Source: [place] 11:50 AM [facility] REPOSITORY TYPE CODE TESTS RESULT OUT OF RANGE REFERENCE UNITS LAB L100.1000 4.4-11.0 K/mm3 High WBC 14.8 LAB L100.1200 4.6-6.2 M/mm3 Normal RBC 5.39 LAB L100.1300 13.0-16.5 g/dl Normal HGB 16.1 LAB L100.1400 40-54 % Normal HCT 47.4 LAB L100.1500 80-94 fL Normal MCV 87.9 LAB L100.1600 27.0-32.0 pg Normal MCH 29.9 LAB L100.1700 32-36 g/gl Normal MCHC 34.0 LAB L100.1810 11.6-14.6 % Normal RDW CV 13.8 LAB L100.1820 35.1-43.9 fl High RDW SD 44.0 LAB L100.1900 150-450 K/mm3 Normal PLT 268 LAB L100.2000 6.2-12.0 fl Normal MPV 9.9 LAB L100.2100 47-70 % Normal NEUT% 55.6 LAB L100.2200 19-41 % Normal LY% 37.3 LAB L100.2300 0-10 % Normal MONO% 5.5 LAB L100.2400 0-5 % Normal EO% 0.9 LAB L100.2500 0-1 % Normal BASO% 0.2 LAB L100.2550 0.0-0.9 % Normal IM GRAN % 0.500 Result Comment: IG% - Immature Granulocytes (promyelocytes, myelocytes and metamyelocytes) > 1% indicates that a LEFT SHIFT is Present. LAB L100.2620 2.0-7.7 X10 3/uL High Absolute Neut 8.2 LAB L100.2720 0.83-4.51 X10 3/ul High Absolute Lymph 5.51 LAB L100.4500 SMEAR Normal COMMENT Result Comment: LYMPHOCYTOSIS NOTED LAB L100.4700 Normal RARE REACTIVE LYMPH LAB L100.9900 Normal PATH REV Reviewed Result Comment: Leukocytosis. Clinical correlation necessary. Jeremiah Hyatt M.D. 01/11/18 AMENDED REPORT 01/11/18 1342 PATH REV previously reported as: March foll Performed By: #### L100.0100 #### [facility] [address] [place], [address] BASIC METABOLIC Collected: 01/10/2018 Status: F Source: [place] PROFILE ([facility]) 11:50 AM [facility] REPOSITORY Order Comment: 'TROP' Serial specimen #1, #2, #3, or #4: 1 TYPE CODE TESTS RESULT OUT OF RANGE REFERENCE UNITS LAB L501.0100 74-106 mg/dL Normal GLU 85 Result Comment: Please note revised GLUCOSE reference range effective 2017. LAB L501.1000 7-18 mg/dL Normal BUN 17 LAB L501.1100 0.70-1.30 mg/dL Normal CREAT,SERUM 0.95 Result Comment: The validity of the calculated GFR AND GFRAA in patients over 70 years has not been determined. Clinical correlation is essential. LAB L501.1110 >60 mL/min Normal EST GFR 89 Result Comment: Non- GFR Calc LAB L501.1115 >60 mL/min Normal EST GFR - AA 107 Result Comment: GFR Calc LAB L501.1255 ml/min Normal Estimated CRCL 93.92 LAB L501.1300 10-20 RATIO Normal BUN/CRE 17.9 LAB L501.2200 8.5-10 mg/dL Normal .1 CA 8.8 LAB L501.5300 136-14 mmol/L Normal 5 NA 137 LAB L501.5600 3.5-5. mmol/L Normal 1 K 4.2 LAB L501.5900 98-107 mmol/L Normal CL 101 LAB L501.6100 21.0-3 mmol/L Normal 2.0 CO2 26.0 LAB L501.6200 5-15 Normal GAP 10 Performed By: #### L500.2500, L501.4010 #### [facility] [address] [place], [place], [id number] TROPONIN-I Collected: 01/10/2018 Status: F Source: [place] 11:50 AM [facility] REPOSITORY Order Comment: 'TROP' Serial specimen #1, #2, #3, or #4: 1 TYPE CODE TESTS RESULT OUT OF RANGE REFERENCE UNITS LAB L501.4010 <0.06 ng/mL Normal < 0.02 TROPONIN-I Result Comment: TROPONIN-I EXPECTED VALUES <0.05 NEGATIVE 0.06 - 0.59 AT RISK OF SC > OR = 0.60 SUGGEST SC Performed By: #### L500.2500, L501.4010 #### [facility] [address] [place], [place], [address] D-DIMER QUANTITATIVE Collected: 01/10/2018 Status: F Source: [place] (DVT/PE) 11:50 AM [facility] REPOSITORY TYPE CODE TESTS RESULT OUT OF RANGE REFERENCE UNITS LAB L300.8000 0.27-0.49 FEU/ug/m Normal D-DIMER 0.32 QUANT Result Comment: NORMAL D-Dimer level (<0.50) indicates no DVT or PE. Performed By: #### L300.8000 #### [facility] [address] [place], [address] SURGERY VISIT REPORT Observed: 12/27/2017 Status: F Source: [place] 10:04 AM [facility] REPOSITORY [facility] [address] [place] [address] OFFICE VISIT Date of Service: 12/22/17 MR#: [id number] Acct: [id number] Name: JANES LANDRY Rep #: [id number] : 1965 Provider: Aravind Douglass MD Age/Sex: 52/M Location: [facility] Status: Signed Intake Vital Signs12/22/17 Height 5 ft 10 in 12/22/17 Weight: 250 lb 12/22/17 Body Mass Index (BMI) 35.9 Intake Visit Reasons: Umbilical Hernia Equipment Tech Required: No Is patient in pain?: Yes (umbilicus) Pain scale (1-10): 4 Allergies amoxicillin trihydrate [From Augmentin] Adverse Reaction (Verified 12/22/17 08:40) Nausea/Vom/Diarrhea potassium clavulanate [From Augmentin] Adverse Reaction (Verified 12/22/17 08:40) Nausea/Vom/Diarrhea Medications calcium carbonate 200 mg calcium (500 mg) chewable tablet 200 mg PO TID tab 12/22/17 [History Confirmed 12/22/17] ibuprofen 200 mg capsule PO 12/22/17 [History Confirmed 12/22/17] PFSH Medical History Acid reflux (Acute) Bacterial heart infection (Acute) Colon polyps (Acute) Duodenal ulcer (Acute) history of colon perforation (Acute) Surgical History History of colon resection (Acute) Family History Mother Diabetes Heart disease Thyroid disorder Social History Smoking Status: Current every day smoker alcohol intake: current HPI HPI HPI: JANES LANDRY, is a 52 M who presents to the office today for evaluation of an umbilical hernia. Patient has had a pain and bulge at his bellybutton for many years. It has recently gotten slightly larger and occasionally more uncomfortable for him he has not had any bowel or bladder change he has had no skin change. ROS General General: Yes fatigue; no weight change, appetite, colon cancer, breast cancer or weakness HEENT HEENT: Yes eye surgery and eye injury; no difficulty swallowing, swollen glands or hoarseness Endo Endocrine: No thyroid disease, diabetes mellitus, thyroid cancer, Hair loss, heat intolerance or cold intolerance Skin Skin: No rash or changing moles Breast Breast: No left breast lump, right breast lump, nipple discharge, breast pain, abnormal mammogram, abnormal US or breast enlargement Musc Musculoskeletal: Yes back problems; no arthritis, rheumatoid arthritis, gout or joint pain Cardio Cardiovascular: Yes heart disease; no murmur, pacemaker, atrial fibrillation, high blood pressure, heart attack, heart stent, palpitations, shortness of breat with exertion or chest pain Psych Psychiatric: Yes anxiety; no depression or hearing voices Resp Respiratory: Yes shortness of breath, Yes cough, Yes COPD, No sleep apnea, No asthma, No emphysema, No wheezing Gastro Gastrointestinal: Yes abdominal pain, Yes diarrhea, Yes blood in stool, Yes hemorrhoids, Yes acid reflux, Yes ulcers, Yes black,tarry stools Harjinder Hematologic: No blood thinners, No blood disorders, No bleeding, No anemia, No blood clots Neuro Neurologic: No system reviewed and no additional complaints, except as docu, No as per HPI, No abnormal walking, No abnormal hearing, No abnormal movements, No abnormal speech, No behavioral changes, No burning sensations, No confusion, No seizure-like activity, No unsteadiness, No dizziness, No localized weakness, No frequent falls, No headache(s), No lack of coordination, No loss of vision, No memory loss, No numbness, No other visual disturbances, No radiating pain, No restless legs, No sensory deficit, No fainting, No tingling, No tremor(s), No weakness, No other Exam Const General: well developed, no acute distress, well hydrated Orientation: oriented to person, oriented to place, oriented to time [facility] Head: normocephalic, atraumatic Ears: external ears normal Mouth: moist mucous membranes Eyes Sclera: sclerae normal Pupils: normal by confrontation Neck Neck: no lymphadenopathy noted Neck mass: No Thyroid: symmetrical, thyroid normal Chest Chest palpation AND inspection: normal inspection of the chest Breast Palpation: No nipple discharge Resp Effort AND Inspection: normal respiratory effort Auscultation: clear to auscultation bilaterally Percussion: percussion normal Cardio Rate: regular rate Rhythm: regular rhythm Heart Sounds: no murmurs GI Palpation: soft, tender, no masses, no hepatosplenomegaly Rectal Exam: other Other: A Hernia at the umbilicus is seen on exam. It is reducible. It is uncomfortable to touch. There are no rebound guarding or peritoneal signs Rectal exam deferred. Extrem General: no clubbing, cyanosis or edema, normal to inspection Assessment AND Plan Problems 1. Umbilical hernia without obstruction and without gangrene K42.9 Plan My plan is to perform a umbilical hernia repair. The planned surgical procedure was discussed extensively with the patient. The risks, benefits, anticipated outcomes and possible complication were mentioned. The patient understands that all hernia repair surgery has a chance of recurrence and/or chronic post-operative pain. My staff has also explained the procedure in understandable terms and the patient was given the option to take printed material concerning the planned procedure. The patient had the opportunity to ask questions concerning the planned procedure. The patient freely consents to the planned procedure. Coding Level of Care Code Off vis,new,level 3 Diagnoses Umbilical hernia without obstruction and without gangrene K42.9 12/27/17 1004 <Electronically signed by Aravind Douglass MD> Date Aravind Douglass MD Cosigner Signature: Date (if applicable) CC: Krishna Mendoza MD CBC W/DIFF, AUTOMATED Collected: 12/17/2017 Status: F Source: [place] 12:11 PM [facility] REPOSITORY Order Comment: Order Date: 12/17/17 Order Info: 0184-1 - CBCD TYPE CODE TESTS RESULT OUT OF RANGE REFERENCE UNITS LAB L100.1000 4.4-11.0 K/mm3 Normal WBC 10.8 LAB L100.1200 4.6-6.2 M/mm3 Normal RBC 5.00 LAB L100.1300 13.0-16.5 g/dl Normal HGB 14.8 LAB L100.1400 40-54 % Normal HCT 45.3 LAB L100.1500 80-94 fL Normal MCV 90.6 LAB L100.1600 27.0-32.0 pg Normal MCH 29.6 LAB L100.1700 32-36 g/gl Normal MCHC 32.7 LAB L100.1810 11.6-14.6 % Normal RDW CV 13.9 LAB L100.1820 35.1-43.9 fl High RDW SD 45.7 LAB L100.1900 150-450 K/mm3 Normal PLT 251 LAB L100.2000 6.2-12.0 fl Normal MPV 10.6 LAB L100.2100 47-70 % Normal NEUT% 48.4 LAB L100.2200 19-41 % High LY% 43.7 LAB L100.2300 0-10 % Normal MONO% 5.5 LAB L100.2400 0-5 % Normal EO% 1.8 LAB L100.2500 0-1 % Normal BASO% 0.3 LAB L100.2550 0.0-0.9 % Normal IM GRAN % 0.300 Result Comment: IG% - Immature Granulocytes (promyelocytes, myelocytes and metamyelocytes) > 1% indicates that a LEFT SHIFT is Present. LAB L100.2620 2.0-7.7 X10 3/uL Normal Absolute Neut 5.3 LAB L100.2720 0.83-4.51 X10 3/ul High Absolute Lymph 4.72 Performed By: #### L100.0100, L500.4050, L500.4100, L501.9520, L501.9910, L501.9985 #### [facility] [address] [place], [address] COMPREHENSIVE METABOLIC Collected: 12/17/2017 Status: F Source: [place] 12:11 PM [facility] REPOSITORY Order Comment: Order Date: 12/17/17 Order Info: 0786-1 - CMP Order Info: 10019-8 - LIPID Order Info: 3016-3 - TSH Order Info: 2857-1 - PSA TYPE CODE TESTS RESULT OUT OF RANGE REFERENCE UNITS LAB L501.0100 74-106 mg/dL Normal GLU 80 Result Comment: Please note revised GLUCOSE reference range effective 2017. LAB L501.1000 7-18 mg/dL Normal BUN 13 LAB L501.1100 0.70-1.30 mg/dL Normal CREAT,SERUM 0.97 Result Comment: The validity of the calculated GFR AND GFRAA in patients over 70 years has not been determined. Clinical correlation is essential. LAB L501.1110 >60 mL/min Normal EST GFR 87 Result Comment: Non- GFR Calc LAB L501.1115 >60 mL/min Normal EST GFR - AA 105 Result Comment: GFR Calc LAB L501.1300 10-20 RATIO Normal BUN/CRE 13.4 LAB L501.1500 6.4-8.2 g/dL T Normal PROT 7.6 LAB L501.1800 3.2-5.0 g/dL Normal ALB 3.8 LAB L501.1950 2.2-4.2 g/dL Normal GLOB 3.8 LAB L501.2000 0.9-2.4 RATIO Normal A/G 1.0 LAB L501.2200 8.5-10.1 mg/dL CA Normal 8.9 LAB L501.4100 15-37 U/L Normal AST 18 LAB L501.4305 45-117 U/L Normal ALK P 105 LAB L501.4405 16-61 U/L Normal ALT 29 Result Comment: Please note revised ALT reference range effective 2017. LAB L501.4600 0.20-1.00 mg/dL Normal T BILI 0.30 LAB L501.5300 136-145 mmol/L Normal NA 139 LAB L501.5600 3.5-5.1 mmol/L Normal K 4.4 LAB L501.5900 98-107 mmol/L Normal CL 104 LAB L501.6100 21.0-32.0 mmol/L Normal CO2 25.0 LAB L501.6200 5-15 Normal GAP 10 Performed By: #### L100.0100, L500.4050, L500.4100, L501.9520, L501.9910, L501.9985 #### [facility] [address] [place], [place], [address] LIPID PROFILE Collected: 12/17/2017 Status: F Source: [place] 12:11 PM [facility] REPOSITORY Order Comment: Order Date: 12/17/17 Order Info: 0786-1 - CMP Order Info: 14966-9 - LIPID Order Info: 3016-3 - TSH Order Info: 2857-1 - PSA TYPE CODE TESTS RESULT OUT OF RANGE REFERENCE UNITS LAB L501.4900 200 mg/dL Normal CHOL 169 Result Comment: <200 mg/dL Desirable 200-240 mg/dL Borderline >240 mg/dL High Risk LAB L501.5000 mg/dL High TRIG 259 Result Comment: The drugs N-Acetylcysteine and Metamizole may falsely depress this assay. Serum Triglycerides Reference Interval Normal <150 mg/dL Borderline high 150 - 199 mg/dL High 200 - 499 mg/dL Very High > or = 500 mg/dL LAB L501.6400 mg/dL Low HDL 29 Result Comment: The drugs N-Acetylcysteine and Metamizole may falsely depress this assay. Reference Range HDL <40 mg/dL Low HDL Cholesterol HDL >or= 60 mg/dL High HDL Cholesterol LAB L501.6500 0-130 mg/dL Normal LDL 88 LAB L501.6600 5-40 mg/dL High VLDL 52 Performed By: #### L100.0100, L500.4050, L500.4100, L501.9520, L501.9910, L501.9985 #### [facility] [address] [place], [address] THYROID STIM HORMONE Collected: 12/17/2017 Status: F Source: SYLVESTER (TSH) 12:11 PM [facility] REPOSITORY Order Comment: Order Date: 12/17/17 Order Info: 0786-1 - CMP Order Info: 39833-0 - LIPID Order Info: 3016-3 - TSH Order Info: 2857-1 - PSA TYPE CODE TESTS RESULT OUT OF RANGE REFERENCE UNITS LAB L501.9520 0.358-3.74 uIU/mL Normal TSH 2.23 Performed By: #### L100.0100, L500.4050, L500.4100, L501.9520, L501.9910, L501.9985 #### [facility] [address] [place], [place], [address] PSA,TOTAL - ANNUAL Collected: 12/17/2017 Status: F Source: SYLVESTER SCREEN 12:11 PM [facility] REPOSITORY Order Comment: Order Date: 12/17/17 Order Info: 0786-1 - CMP Order Info: 87928-0 - LIPID Order Info: 3016-3 - TSH Order Info: 2857-1 - PSA TYPE CODE TESTS RESULT OUT OF RANGE REFERENCE UNITS LAB L501.9910 0.00-4.00 ng/mL Normal PSA,TOT 0.46 SCREEN Result Comment: This test was performed using the TPSA assay method for the [employer] chemistry system. Values obtained with different assay methods cannot be used interchangably. When changing PSA assays in the course of monitoring a patient, additional sequential testing should be carried out to confirm baseline values. Performed By: #### L100.0100, L500.4050, L500.4100, L501.9520, L501.9910, L501.9985 #### [facility] [address] [place], [place], [address] HEMOGLOBIN A1C Collected: 12/17/2017 Status: F Source: [place] 12:11 PM [facility] REPOSITORY Order Comment: Order Date: 12/17/17 Order Info: 4548-4 - A1C TYPE CODE TESTS RESULT OUT OF RANGE REFERENCE UNITS LAB L501.9985 4.2-6.3 % Normal HGB A1C 6.0 Performed By: #### L100.0100, L500.4050, L500.4100, L501.9520, L501.9910, L501.9985 #### [facility] [address] [place], [place], [address] URINALYSIS, COMPLETE Collected: 12/17/2017 Status: F Source: BIG TIMBER 12:11 PM [facility] REPOSITORY Order Comment: How was Urine Obtained? CLEAN CATCH TYPE CODE TESTS RESULT OUT OF RANGE REFERENCE UNITS LAB L400.3000 Yellow COLOR Normal Straw LAB L400.3050 Clear Normal CLARITY Clear LAB L400.3200 Normal mg/dl Normal GLUCOSE, UR Normal LAB L400.3300 Negative mg/dL Normal BILIRUBIN URINE Negative LAB L400.3400 Negative mg/dl Normal KETONE UR Negative LAB L400.3465 1.002-1.030 Normal SP.GR. DIPSTX 1.010 LAB L400.3550 5.0 - 8.0 pH UR Normal 7.0 LAB L400.3600 Negative mg/dl PROT Normal DIPSTX Negative LAB L400.3700 Normal mg/dl Normal UROBILI Normal LAB L400.3750 Negative Normal NITRITE UR Negative LAB L400.3780 Negative /ul Normal OCCULT BLOOD-UR Negative LAB L400.3800 Negative /ul LEUK Normal ESTERASE Negative LAB L400.4050 0-5 /hpf WBC 0 Normal SEEN LAB L400.4100 0-5 /hpf Normal RBC-UA 0-5 SEEN LAB L400.4150 0-5 /hpf SQUAM Normal EPI 0-5 SEEN LAB L400.4300 None Seen /hpf 0 Normal BACTERIA SEEN LAB L400.4350 <or=2+ /hpf 0 Normal MUCUS, URINE SEEN Performed By: #### L400.0001 #### [facility] [address] [facility] [place], [place], [address] HEPATITIS C ANTIBODIES Collected: 12/17/2017 Status: F Source: [place] 12:11 PM [facility] REPOSITORY Order Comment: Order Date: 12/17/17 Order Info: 0363-1 - HECAB TYPE CODE TESTS RESULT OUT OF RANGE REFERENCE UNITS LAB L3100.0650 0.0-0.9 s/co ratio Normal HEP C AB <0.1 Result Comment: Negative: < 0.8 Indeterminate: 0.8 - 0.9 Positive: > 0.9 The CDC recommends that a positive HCV antibody result be followed up with a HCV Nucleic Acid Amplification test (133261). Performed at: [address] [id number] Airdox Fitter: Michael Mullen PhD, Phone: [phone] Performed By: #### L3100.0625 #### [facility] (refer to report for specific site) refer to report for address and phone number ALLERGIES ALLERGIES DATE TYPE / CODE NAME / CODE REACTION SEVERITY SOURCE 11/18/2018 Drug amoxicillin Nausea/Vom/Di Unknown Sylvester Allergy[facility]516729670( [facility] Repository 11/18/2018 Drug potassium Nausea/Vom/Di Unknown Sylvester Allergy/042037150( [facility] 8885[facility] Repository Miscellaneous No Known Drug Moderate Clarence Pomerene Allergy/943994945( Allergies ([facility]) Modifier) Hospital (Qualifier Repository Value) ENCOUNTERS ENCOUNTERS ADMIT/DISCHARGE ACCOUNT ADMITTING ENCOUNTER LOCATION SOURCE NUMBER CLASS 11/22/2018 [id number] Ambulatory Sylvester Sch[place] 2 [facility] ing:SL Repository 11/18/2018 [id number] Ambulatory [place] Sylvester 9 [facility] ing:LAB Repository 11/18/2018/ [id number] Ambulatory BMSBuilding:B Syl[place] 9 2 [facility] Repository 11/18/2018/ [id number] Ambulatory BMSBuilding:B [place] 9 5 [facility] Repository 11/11/2018 [id number] Ambulatory Sylvester Sch[place] 4 [facility] ing:LAB Repository 10/25/2018 [id number] Ambulatory Sylvester Sch[place] 5 [facility] ing:POLAB3 Repository 10/25/2018/ [id number] Ambulatory BMSBuilding:B Sylvester 8 8 [facility] Repository 10/23/2018/ [id number] HUNG BASURTO Emergency BuildinR Clarencecong Grossleon 8 DO oom: ERBed: A [facility] Repository 10/11/2018/ [id number] Ambulatory Sylvester Sch[place] 8 8 [facility] ing:LAB Repository 10/11/2018/ [id number] Ambulatory BMSBuilding:B Sylvester 8 0 [facility] Repository 09/16/2018/ [id number] Ambulatory BMSBuilding:B [place] 8 9 [facility] Repository 09/14/2018/ [id number] Ambulatory [place] Sylvester 8 5 [facility] Repository 09/08/2018 [id number] Ambulatory BMSBuilding:B [place] 4 [facility] Repository 07/28/2018 [id number] Ambulatory Sylvester Sylvester 0 [facility] ing:PAVLAB Repository 07/28/2018/ [id number] Ambulatory BMSBuilding:B [place] 8 5 [facility] Repository 06/28/2018/ [id number] Ambulatory BMSBuilding:B [place] 8 0 [facility] Repository 06/21/2018 [id number] Ambulatory BMSBuilding:B [place] 2 [facility] Repository 05/13/2018 [id number] Ambulatory Sylvester Sylvester 4 [facility] ing:SL Repository 04/08/2018/ [id number] Ambulatory BMSBuilding:B [place] 8 4 [facility] Repository 03/28/2018 [id number] Ambulatory BMSBuilding:B Syl[place] 5 [facility] Repository 03/28/2018 [id number] Ambulatory [place] Sylvester 0 [facility] ing:CLSP Repository 03/28/2018 [id number] Ambulatory BMSBuilding:B [place] 6 [facility] Repository 03/28/2018 [id number] Ambulatory BMSBuilding:B Sylvester 4 [facility] Repository 03/28/2018 [id number] Ambulatory BMSBuilding:W Sch[place] 7 [facility] Repository 03/21/2018/ [id number] Ambulatory Sylvester Sylvester 8 7 [facility] ing:LAB Repository 03/21/2018 [id number] Ambulatory BMSBuilding:B Sylvester 7 [facility] Repository 03/14/2018/ [id number] Ambulatory BMSBuilding:B Sch[place] 8 7 [facility] Repository 03/14/2018 [id number] Ambulatory Sylvester Sylvester 3 [facility] ing:LAB.FUTUR Repository E 03/10/2018/ [id number] Ambulatory BMSBuilding:B [place] 8 4 [facility] Repository 03/07/2018/ [id number] Ambulatory Sylvester Sylvester 8 6 [facility] Hospital ing:LAB Repository 03/03/2018/ [id number] Ambulatory BMSBuilding:B Sylvester 8 9 [facility] Repository 02/25/2018/ [id number] Ambulatory BMSBuilding:B Sch[place] 8 3 [facility] Repository 02/18/2018/ [id number] Ambulatory BMSBuilding:B Sch[place] 8 1 [facility] Repository 02/11/2018/ [id number] Ambulatory BMSBuilding:B Sch[place] 8 1 [facility] Repository 02/10/2018/ [id number] Ambulatory BMSBuilding:B [place] 8 1 [facility] Repository 02/07/2018/ [id number] Ambulatory BMSBuilding:B Sylvester 8 8 [facility] Repository 02/04/2018/ [id number] Ambulatory BMSBuilding:B [place] 8 3 [facility] Repository 02/01/2018/ [id number] Ambulatory BMSBuilding:B Syl[place] 8 0 [facility] Repository 01/25/2018/ [id number] Ambulatory [place] Sylvester 8 9 [facility] Hospital ing:SDC Repository 01/25/2018 [id number] Ambulatory BMSBuilding:B Sch[place] 6 [facility] Repository 01/18/2018/ [id number] JULIO BORRERO Ambulatory Clarence Adame [address] [place] [address] Repository 01/12/2018/ [id number] Ambulatory BMSBuilding:B Sylvester 8 1 [facility] Repository 01/12/2018 [id number] Ambulatory BMSBuilding:B Sylvester 3 [facility] Repository 01/10/2018/ [id number] Emergency Schlater Schlater 8 4 [facility] ing:ED Repository 01/10/2018 [id number] Ambulatory BMSBuilding:W Sylvester 4 [facility] Repository 01/06/2018 [id number] Ambulatory Sylvester Sylvester 7 [facility] ing:PSN Repository 12/22/2017/ [id number] [facility] BMSBuilding:B [facility] 8 3 [facility] 12/17/2017 [id number] Ambulatory Schlater Schlater 9 [facility] ing:MFPLAB Repository PAYERS PAYERS ENCOUNTER GUARANTOR PAYER SUBSCRIBER SOURCE 11/22/2018 JANES Jorgensen Primary JANES Phan [id number] SR Insurance:MEDICAL HALLDOB: [address] [id number]: (330) Number: Repository [phone] () [id number] Date:7765-99-40PLMichel[place] [address]WP: 11/22/2018 Secondary NOT GIVENUNK Sylvester Insurance:SELF PAY [facility] Number: Effective Repository Date:2018-11-18 11/18/2018 JANES E Primary JANES Phan [id number] SR Insurance:MEDICAL HALLDOB: [address] [address]Rlr: (330) Number: Repository [phone] () [id number] Date:8639-44-02GP[address] [address]HM: 11/18/2018 Secondary NOT GIVENUNK Schlater Insurance:SELF PAY [facility] Number: Effective Repository Date:2018-11-18 11/18/2018 JANES Jorgensen Primary JANES Phan [id number] SR Insurance:MEDICAL HALLDOB: [address] [address]Uem: (330) Number: Repository [phone] () [id number] Date:1758-12-59LV [address] [address]CF: 11/18/2018 Secondary NOT GIVENUNK Sylvester Insurance:SELF PAY [facility] Number: Effective Repository Date:2018-11-15 11/18/2018 JANES Jorgensen Primary JANES Phan [id number] SR Insurance:MEDICAL HALLDOB: [address] 2015-04-[place] [address]Tel: (330) Number: Repository [phone] () [id number] Date:2174-56-08LC [address] [address]MJ: 11/18/2018 Secondary NOT GIVENUNK Sylvester Insurance:SELF PAY [facility] Number: Effective Repository Date:2018-11-18 11/11/2018 JANES E Primary JANES Rodrigesoster [id number] SR Insurance:MEDICAL HALLDOB: [address] 4456-11-51XYKMary [place] [address]Tel: (330) Number: Repository [phone] () [id number] Date:6534-39-79ET [address] [address]CF: 11/11/2018 Secondary NOT GIVENUNK Schlater Insurance:SELF PAY [facility] Number: Effective Repository Date:2018-11-07 10/25/2018 JANES E Primary JANES Phan [id number] SR Insurance:MEDICAL HALLDOB: [address] 2537-34-48UGTMary [place] [address]Tel: (330) Number: Repository [phone] () [id number] Date:0443-68-39GD [address] [address]UK: 10/25/2018 Secondary NOT GIVENUNK Sylvester Insurance:SELF PAY [facility] Number: Effective Repository Date:2018-10-25 10/25/2018 JANES E Primary JANES Phan [id number] SR Insurance:MEDICAL HALLDOB: [address] 2984-23-48THXLisa [place] [address]Tel: (330) Number: Repository [phone] () [id number] Date:8816-50-36BS [address] [address]JL: 10/25/2018 Secondary NOT GIVENUNK Sylvester Insurance:SELF PAY [facility] Number: Effective Repository Date:2018-10-25 10/11/2018 JANES Jorgensen Primary JANES Phan [id number] SR Insurance:MEDICAL HALLDOB: Community [address] [place] [address] [id number] Hospital [address]Xlc: (330) Number: Repository [phone] () [id number] Date:3657-88-85LU [address] [address]NT: 10/11/2018 Secondary NOT GIVENUNK Sylvester Insurance:SELF PAY [facility] Number: Effective Repository Date:2018-10-10 10/11/2018 JANES Jorgensen Primary JANES Phan [id number] STATE Insurance:MEDICAL HALLDOB: Community [facility] [id number] Number: Repository [address]Joo: (330) [id number] [phone] () Date:8182-33-24AL [address] [address]RO: 10/11/2018 Secondary NOT GIVENUNK Sylvester Insurance:SELF PAY [facility] Hospital Number: Effective Repository Date:2018-10-11 09/16/2018 JANES Jorgensen Primary JANES Phan [id number] SR Insurance:MEDICAL HALLDOB: [address] [id number] Hospital [address]Ozm: (330) Number: Repository [phone] () [id number] Date:8086-75-31IH [address] [address]UN: 09/16/2018 Secondary NOT GIVENUNK Sylvester Insurance:SELF PAY [facility] Hospital Number: Effective Repository Date:2018-09-15 09/14/2018 JANES E Primary JANES Phan [id number] SR Insurance:MEDICAL HALLDOB: [address] [address]Tel: (330) Number: Repository [phone] () [id number] Date:5351-36-68VV [address] [address]BK: 09/14/2018 Secondary NOT GIVENUNK Sch[place] Insurance:SELF PAY [facility] Number: Effective Repository Date:2018-04-07 09/08/2018 JANES E Primary JANES Jorgensen Sylvester [id number] SR Insurance:MEDICAL HALLDOB: [address] [address]Tel: (330) Number: Repository [phone] () [id number] Date:0703-76-19EL [place] [address]WP: 09/08/2018 Secondary NOT GIVENUNK Sylvester Insurance:SELF PAY [facility] Number: Effective Repository Date:2018-09-01 07/28/2018 JANES E Primary JANES Phan [id number] SR Insurance:MEDICAL HALLDOB: [address] [address]Tel: (330) Number: Repository [phone] () [id number] Date:7243-23-11VA [address] [address]KJ: 07/28/2018 Secondary NOT GIVENUNK Sch[place] Insurance:SELF PAY [facility] Number: Effective Repository Date:2018-07-28 07/28/2018 JANES E Primary JANES Phan [id number] SR Insurance:MEDICAL HALLDOB: [address] [address]Tel: (330) Number: Repository [phone] () [id number] Date:9524-13-71OB [place] [address]WP: 07/28/2018 Secondary NOT GIVENUNK [place] Insurance:SELF PAY [facility] Number: Effective Repository Date:2018-07-21 06/28/2018 JANES Jorgensen Primary Insurance:SELF NOT GIVENUNK Sylvester [id number] SR PAY [employer] Number: Effective Hospital [id number]: (330) Date:2018-06-28 Repository [phone] () 06/21/2018 JANES E Primary Insurance:SELF NOT GIVENUNK [place] [id number] SR PAY [facility] [place] Number: Effective Hospital [id number]: (330) Date:2018-05-12 Repository [phone] () 05/13/2018 JANES E Primary Insurance:SELF NOT GIVENUNK Sch[place] [id number] SR PAY [employer] Number: Effective Hospital [address]Too: (330) Date:2018-04-27 Repository [phone] () 04/08/2018 JANES E Primary JANES Jorgensen [place] [id number] STATE Insurance:MEDICAL HALLDOB: Community [facility] [id number], [place] Number: Repository [phone]: (330) [id number] [phone] () Date:8538-80-70BS [address] [address]EC: 04/08/2018 Secondary NOT GIVENUNK [place] Insurance:SELF PAY [facility] Hospital Number: Effective Repository Date:2018-04-08 03/28/2018 JANES Jorgensen Primary JANES Jorgensen [place] [id number] SR Insurance:MEDICAL HALLDOB: [address] [id number] Hospital [address]Reb: (330) Number: Repository [phone] () [id number] Date:4682-20-57QT [address] [address]YM: 03/28/2018 Secondary NOT GIVENUNK Sch[place] Insurance:SELF PAY [facility] Hospital Number: Effective Repository Date:2018-03-14 03/28/2018 JANES E Primary JANES Phan [id number] SR Insurance:MEDICAL HALLDOB: [address] [address]Vqb: (330) Number: Repository [phone] () [id number] Date:7486-01-94DB [address] [address]TL: 03/28/2018 Secondary NOT GIVENUNK Sylvester Insurance:SELF PAY [facility] Number: Effective Repository Date:2018-03-14 03/28/2018 JANES E Primary JANES Jorgensen Sylvester [id number] SR Insurance:MEDICAL HALLDOB: [address]26[facility] [address]Zwr: (330) Number: Repository [phone] () [id number] Date:5685-76-22CU [address] [address]TH: 03/28/2018 Secondary NOT GIVENUNK Sylvester Insurance:SELF PAY [facility] Number: Effective Repository Date:2018-03-28 03/28/2018 JANES E Primary JANES Phan [id number] SR Insurance:MEDICAL HALLDOB: [address]02[address]26[facility] [address]Qtn: (330) Number: Repository [phone] () [id number] Date:8472-00-38KM [address] [address]SE: 03/28/2018 Secondary NOT GIVENUNK Sylvester Insurance:SELF PAY [facility] Number: Effective Repository Date:2018-03-28 03/28/2018 JANES E Primary JANES Phan [id number] STATE Insurance:MEDICAL HALLDOB: [address] Number: Repository [phone]: (330) [id number] [phone] () Date:5842-51-34NB [address] [address]ZA: 03/28/2018 Secondary NOT GIVENUNK Sch[place] Insurance:SELF PAY [facility] Number: Effective Repository Date:2018-03-28 03/21/2018 JANES Jorgensen Primary JANES Phan [id number] SR Insurance:MEDICAL HALLDOB: [address] [id number] Hospital [address]Wli: (330) Number: Repository [phone] () [id number] Date:1794-49-85SK [address] [address]WJ: 03/21/2018 Secondary NOT GIVENUNK Sylvester Insurance:SELF PAY [facility] Number: Effective Repository Date:2018-03-08 03/21/2018 JANES Jorgensen Primary JANES Phan [id number] SR Insurance:MEDICAL HALLDOB: [address] 0483-36-82[place]BM[place] [address]Tel: (330) Number: Repository [phone] () [id number] Date:3177-61-33UY[address] [address]CE: 03/21/2018 Secondary NOT GIVENUNK [place] Insurance:SELF PAY [facility] Number: Effective Repository Date:2018-03-10 03/14/2018 JANES Jorgensen Primary JANES Phan [id number] SR Insurance:MEDICAL HALLDOB: [address] 2560-06-63IKG Hospital [address]Cxe: (330) Number: Repository [phone] () [id number] Date:1637-35-21MF [address] [address]SJ: 03/14/2018 Secondary NOT GIVENUNK Sylvester Insurance:SELF PAY [facility] Number: Effective Repository Date:2018-03-14 03/14/2018 JANES Jorgensen Primary JANES Phan [id number] SR Insurance:MEDICAL HALLDOB: [address] 1199-47-62VYVLisa [place] [address]Tel: (330) Number: Repository [phone] () [id number] Date:3300-99-02MX [address] [address]KD: 03/14/2018 Secondary NOT GIVENUNK Sch[place] Insurance:SELF PAY [facility] Number: Effective Repository Date:2018-02-21 03/10/2018 JANES E Primary JANES Phan [id number] SR Insurance:MEDICAL HALLDOB: [address] 0933-71-84WKDMary [place] [address]Tel: (330) Number: Repository [phone] () [id number] Date:3105-33-33AP [address] [address]HB: 03/10/2018 Secondary NOT GIVENUNK Sylvester Insurance:SELF PAY [facility] Number: Effective Repository Date:2018-02-25 03/07/2018 JANES E Primary JANES Rodrigesoster [id number] SR Insurance:MEDICAL HALLDOB: [address] 6873-56-38REKMary [place]ille [address]Tel: (330) Number: Repository [phone] () [id number] Date:6431-07-06LP [address] [address]QV: 03/07/2018 Secondary NOT GIVENUNK Sylvester Insurance:SELF PAY [facility] Number: Effective Repository Date:2018-02-28 03/03/2018 JANES E Primary JANES Phan [id number] SR Insurance:MEDICAL HALLDOB: [address] [id number] Hospital [address]Rce: (330) Number: Repository [phone] () [id number] Date:9181-04-80NL [address] [address]IX: 03/03/2018 Secondary NOT GIVENUNK [place] Insurance:SELF PAY [facility] Number: Effective Repository Date:2018-03-03 02/25/2018 JANES E Primary JANES Phan [id number] SR Insurance:MEDICAL HALLDOB: [address] [id number] [address]Tel: [phone]) Number: Repository [phone] () [id number] Date:4379-10-60AH [address] [place] [address]PP: 02/25/2018 Secondary NOT GIVENUNK Schlater Insurance:SELF PAY [facility] Number: Effective Repository Date:2018-02-25 02/18/2018 JANES E Primary JANES Jorgensen Sylvester [id number] SR Insurance:MEDICAL HALLDOB: [address] [id number] [place] [address]Tel: [phone]) Number: Repository [phone] () [id number] Date:0288-15-23YH [address] [address]KC: 02/18/2018 Secondary NOT GIVENUNK Schlater Insurance:SELF PAY [facility] Number: Effective Repository Date:2018-02-14 02/11/2018 JANES E Primary JANES Jorgensen Sylvester [id number] SR Insurance:MEDICAL HALLDOB: [place] [address] [address]Tel: [phone]) Number: Repository [phone] () [id number] Date:9150-63-86BP [address] [address]IS: 02/11/2018 Secondary NOT GIVENUNK Sylvester Insurance:SELF PAY [facility] Number: Effective Repository Date:2018-02-11 02/10/2018 JANES E Primary JANES Jorgensen Schlater [id number] SR Insurance:MEDICAL HALLDOB: [place] [address]-02-[address] [address]Tel: [phone]) Number: Repository [phone] () [id number] Date:9105-09-29HV [address] [address]TJ: 02/10/2018 Secondary NOT GIVENUNK Sylvester Insurance:SELF PAY [facility] Number: Effective Repository Date:2018-02-04 02/07/2018 JANES Jorgensen Primary JANES Phan [id number] SR Insurance:MEDICAL HALLDOB: [address] [id number] [place] [address]Tel: [phone]) Number: Repository [phone] () [id number] Date:6022-33-99HQ [place] [id number]: 02/07/2018 Secondary NOT GIVENUNK Sylvester Insurance:SELF PAY [facility] Number: Effective Repository Date:2018-02-07 02/04/2018 JANES Jorgensen Primary JANES Phan [id number] SR Insurance:MEDICAL HALLDOB: [address] [id number] [place] [address]Tel: [phone]) Number: Repository [phone] () [id number] Date:1127-18-08ON [place] [id number]: 02/04/2018 Secondary NOT GIVENUNK Sylvester Insurance:SELF PAY [facility] Number: Effective Repository Date:2018-02-04 02/01/2018 JANES Jorgensen Primary JANES Phan [id number] SR Insurance:MEDICAL HALLDOB: [address] [id number] [place] [address]Tel: (330) Number: Repository [phone] () [id number] Date:4554-32-68XR [address] [address]QQ: 02/01/2018 Secondary NOT GIVENUNK Sylvester Insurance:SELF PAY [facility] Number: Effective Repository Date:2018-01-31 01/25/2018 JANES Jorgensen Primary JANES Phan [id number] SR Insurance:MEDICAL HALLDOB: [address] [id number] [place] [address]Tel: (330) Number: Repository [phone] () [id number] Date:1509-57-22CC [address] [address]FT: 01/25/2018 Secondary NOT GIVENUNK Schlater Insurance:SELF PAY [facility] Number: Effective Repository Date:2018-01-10 01/25/2018 JANES Jorgensen Primary JANES Phan [id number] SR Insurance:MEDICAL HALLDOB: [address] [id number] [address]Tuf: (330) Number: Repository [phone] () [id number] Date:3304-48-06NS [address] [address]LN: 01/25/2018 Secondary NOT GIVENUNK Sylvester Insurance:SELF PAY [facility] Number: Effective Repository Date:2018-01-25 01/18/2018 MARICRUZ E HALLDOB: Primary JANES HALLDOB: Clarence Adame Insurance:MEDICAL [id number] [place] [address] Repository [address]Otc: 330) Number: [phone] () [id number] Date:Plan Name: 01/12/2018 JANES Jorgensen Primary JANES Phan [id number] SR Insurance:MEDICAL HALLDOB: [address] [id number] [address]Kam: (330) Number: Repository [phone] () [id number] Date:1548-33-01OK[address] [address]IQ: 01/12/2018 Secondary NOT GIVENUNK Sylvester Insurance:SELF PAY [facility] Number: Effective Repository Date:2018-01-10 01/12/2018 JANES Jorgensen Primary JANES Phan [id number] SR Insurance:MEDICAL ROOSEVELTDOB: [address] [id number] [address]Zew: (330) Number: Repository [phone] () [id number] Date:7899-89-64AT [address] [place] [address]AI: 01/12/2018 Secondary NOT GIVENUNK Schlater Insurance:SELF PAY [facility] Number: Effective Repository Date:2018-01-12 01/10/2018 JANES Jorgensen Primary JANES Phan [id number] SR Insurance:MEDICAL HALLDOB: [address]02-26[place] [address]Tel: (330) Number: Repository [phone] () [id number] Date:9786-92-86PC [address] [address]CZ: 01/10/2018 Secondary NOT GIVENUNK Sylvester Insurance:SELF PAY [facility] Number: Effective Repository Date:2018-01-10 01/10/2018 JANES E Primary JANES Phan [id number] SR Insurance:MEDICAL HALLDOB: [address]02-26[place] [id number]: (330) Number: Repository [phone] () [id number] Date:7932-82-71AHMichel[place] [address]01[address]WP: 01/10/2018 Secondary NOT GIVENUNK Schlater Insurance:SELF PAY [facility] Number: Effective Repository Date:2018-01-10 01/06/2018 JANES Jorgensen Primary JANES Phan [id number] SR Insurance:MEDICAL HALLDOB: [place] [address] [id number]: (330) Number: Repository [phone] () [id number] Date:1146-57-33ZQ[address] [address]QL: 01/06/2018 Secondary NOT GIVENUNK Sylvester Insurance:SELF PAY [facility] Number: Effective Repository Date:2017-12-20 12/22/2017 JANES E Primary JANES Phan [id number] STATE Insurance:MEDICAL HALLDOB: [address] [place] [id number] Number: Repository [phone]: 330 [id number] [phone] () Date:7117-38-90VW [address] [address]LS: 12/22/2017 Secondary NOT GIVENUNK Sylvester Insurance:SELF PAY [facility] Number: Effective Repository Date:2017-12-17 12/17/2017 JANES Jorgensen Primary JANES Phan [id number] STATE Insurance:MEDICAL HALLDOB: [place] [address]-02-[address] Number: Repository [phone]: [phone] [id number] [phone] () Date:9274-56-99PX[address] [address]NN: 12/17/2017 Secondary NOT GIVENUNK Sylvester Insurance:SELF PAY [facility] Number: Effective Repository Date:2017-12-17
== END ==
LOC: POLAB3 10:51
PROVIDERS: Family Provider Family Medicine; PCP Family Medicine; Visit Provider Physician Assistant Medical
DX: I48.91 Unspecified atrial fibrillation (principal)
CPT/HCPCS: 36415; 85025; 85610

== ENCOUNTER 2018-11-11 13:19 | Outpatient (RCR) | payer OTHER, SELFPAY ==
[2018-10-25 09:19] VITALS: BMI 39.3
[2018-11-11 14:41] LABS: International Normalized Ratio 2.2; Prothrombin Time (Protime)PT. 24.9 SECONDS (11.7-14.9)
== END 2018-11-11 14:19 | disposition home or self-care (01) ==
LOC: LAB 13:19
PROVIDERS: Family Provider Family Medicine; PCP Family Medicine; Referring Provider Internal Medicine Cardiovascular Disease; Visit Provider Internal Medicine Cardiovascular Disease
DX: I48.91 Unspecified atrial fibrillation (principal)
CPT/HCPCS: 36415; 85610

== ENCOUNTER → 2018-11-18 11:43 | Outpatient (CLI) | payer OTHER, SELFPAY ==
[2018-11-18 11:31] VITALS: BMI 40.1
[2018-11-18 12:44] LABS: International Normalized Ratio 2.6; Prothrombin Time (Protime)PT. 27.7 SECONDS (11.7-14.9)
[2018-11-18 12:48] LABS: Anion Gap 8 (5-15); BUN 19 mg/dL (7-18); BUN/Creat Ratio 15.7 RATIO (10-20); Calcium,Total 9.2 mg/dL (8.5-10.1); Chloride 102 mmol/L (98-107); Creatinine, Serum 1.21 mg/dL (0.70-1.30); EST Glomerular Filtration Rate 67 mL/min (>60); Est Glom Filt Rate - Afr Amer 81 mL/min (>60); Glucose 112 mg/dL (74-106); Potassium 4.5 mmol/L (3.5-5.1); Sodium Level 138 mmol/L (136-145)
== END ==
LOC: LAB 11:46
PROVIDERS: Family Provider Family Medicine; PCP Family Medicine; Referring Provider Nurse Practitioner Family; Visit Provider Nurse Practitioner Family
DX: I48.91 Unspecified atrial fibrillation (principal); R06.09 Other forms of dyspnea
CPT/HCPCS: 36415; 80048; 85610

== ENCOUNTER → 2018-11-22 13:55 | Outpatient (CLI) | payer OTHER, SELFPAY ==
[2018-11-18 11:31] VITALS: BMI 40.1
== END ==
PROVIDERS: Family Provider Family Medicine; PCP Family Medicine; Referring Provider Internal Medicine Critical Care Medicine; Visit Provider Internal Medicine Critical Care Medicine
DX: Z53.9 Procedure and treatment not carried out, unspecified reason (principal)

== ENCOUNTER 2018-12-05 09:04 | Day surgery (SDC) | payer OTHER, SELFPAY ==
[2018-11-18 09:30] VITALS: BMI 40.1
[2018-11-18 11:31] VITALS: BMI 40.1
[2018-12-02 08:44] VITALS: BMI 40.1
--- NOTE | 2018-12-05 11:39 | OP.PCM_ITS ---
Operative Report Date of Procedure: 12/05/18 CONSCIOUS SEDATION REPORT DATE OF SERVICE: December 05, 2018 BRIEF HISTORY OF PRESENT ILLNESS: The patient is a 53-year-old male who presents to [facility] for an elective outpatient cardioversion due to underlying atrial fibrillation. The patient does have a history of having previously undergone a cardioversion in March 2018, during which time, the patient required 60 mg of propofol. The patient's last surface echocardiogram revealed an ejection fraction of 50-55%. He does have a history of obstructive sleep apnea and is currently on nocturnal CPAP therapy. In addition, the patient has an extensive smoking history and continues to smoke cigarettes daily. He denies any previous anesthetic complications. PHYSICAL EXAMINATION: VITAL SIGNS: Reviewed and were acceptable. GENERAL: The patient is an obese male, in no apparent distress, speaking in full sentences. HEENT: Normocephalic, atraumatic. Mucous membranes are moist and pink. Good mouth opening noted. Trachea is midline. MP III CHEST: S1, S2 irregularly irregular. No murmurs, rubs or gallops were noted. LUNGS: Diminished auscultation bilaterally without appreciable wheezes, rales or rhonchi. ABDOMEN: Soft, nontender, nondistended. Positive bowel sounds. EXTREMITIES: There is no clubbing, cyanosis or edema. ASA Class: II DESCRIPTION OF PROCEDURE: After confirmation of informed consent, the patient's anesthesia plan was reviewed in detail. Propofol was chosen. Risks and benefits were reviewed and the patient agreed to proceed. At 1032, the patient was given his first bolus of propofol. In total, the patient received 90 mg of propofol throughout the entire procedure. After achieving an appropriate level of sedation, he was given a 300 joule synchronized cardioversion by Dr. Borrero at the bedside. This was successful in achieving normal sinus rhythm. The patient was monitored until 1039, at which time he reached his baseline mental status and function. The patient tolerated the procedure well. COMPLICATIONS: None ESTIMATED BLOOD LOSS: None RECOMMENDATIONS: Okay to recover in usual fashion. Code Visit 9xxxx: Other Procedure See Report - [id number]
--- NOTE | 2018-12-05 13:48 | PCM.OP.BLANK ---
Operative Report Date of Procedure: 12/05/18 DC cardioversion. 53-year-old man with a history of persistent atrial fibrillation which is symptomatic. The patient was brought to the cardiac catheterization lab in the postabsorptive nonsedated state. The patient was evaluated by Dr. Esqueda of the pulmonary division. After informed consent was obtained anterior-posterior pads were applied. Anticoagulation compliance and adherence were ascertained as well as the ejection fraction. The patient was then administered 80 mg of intravenous propofol and 300 J of biphasic DC cardioversion energy were applied with prompt reversal to sinus rhythm. This was confirmed by EKG. Conclusion: Successful DC cardioversion from atrial fibrillation to sinus rhythm Continue anticoagulation Continue amiodarone To follow-up with pulmonology for obstructive sleep apnea
== END 2018-12-05 11:40 | disposition home or self-care (01) ==
PROVIDERS: Family Provider Family Medicine; PCP Family Medicine; Referring Provider Internal Medicine Cardiovascular Disease; Visit Provider Internal Medicine Cardiovascular Disease
DX: I48.91 Unspecified atrial fibrillation (principal); R06.09 Other forms of dyspnea; G47.33 Obstructive sleep apnea (adult) (pediatric); I38 Endocarditis, valve unspecified; F17.210 Nicotine dependence, cigarettes, uncomplicated; K21.9 Gastro-esophageal reflux disease without esophagitis; E66.9 Obesity, unspecified; Z68.41 Body mass index [BMI] 40.0-44.9, adult; Z86.711 Personal history of pulmonary embolism; Z79.01 Long term (current) use of anticoagulants; Z79.899 Other long term (current) drug therapy
CPT/HCPCS: 36416; 85610; 92960; 93005; J7040

== ENCOUNTER → 2018-12-09 10:02 | Outpatient (CLI) | payer OTHER, SELFPAY ==
[2018-12-02 08:44] VITALS: BMI 40.1
--- NOTE | 2018-12-10 08:18 | PFT ---
INTRODUCTION: The patient is a 53-year-old male that presents for pulmonary function testing secondary to a diagnosis of dyspnea on exertion. Respiratory therapy reports good patient effort. Bronchodilators were used during testing. INTERPRETATION: Forced expiration spirometry demonstrates no evidence of a large airways obstructive ventilatory defect. There was no significant response to aerosolized bronchodilators, based upon strict ATS criteria. Spirograms are of good quality and plateau normally. Body plethysmography was performed and reveals an elevated RV to 159% of predicted. The remainder of the lung volumes are within normal limits. Diffusing capacity by single breath CO is within normal limits at 81% of predicted. IMPRESSION: Grossly normal pulmonary function testing.
== END ==
PROVIDERS: Family Provider Family Medicine; PCP Family Medicine; Referring Provider Internal Medicine Critical Care Medicine; Visit Provider Internal Medicine Critical Care Medicine
DX: F17.210 Nicotine dependence, cigarettes, uncomplicated (principal)
CPT/HCPCS: 94060; 94726; 94729

== ENCOUNTER → 2019-01-12 12:40 | Outpatient (CLI) | payer OTHER, SELFPAY ==
[2019-01-12 11:48] VITALS: BMI 40.8
[2019-01-12 13:18] LABS: Absolute Lymphocyte Count 4.68 X10^3/ul (0.83-4.51); Absolute Neutrophil Count 6.6 X10^3/uL (2.0-7.7); Basophil# 0.05 X10^3/uL; Basophil% 0.4 % (0-1); Eosinophil# 0.28 X10^3/uL; Eosinophils% 2.2 % (0-5); Hematocrit 44.2 % (40-54); Hemoglobin 14.5 g/dl (13.0-16.5); Lymphocyte # 4.68 X10^3/ul (4.0); Lymphocyte % 37.4 % (19-41); Mean Corp Hgb Conc 32.8 g/gl (32-36); Mean Corpuscular Hgb 30.2 pg (27.0-32.0); Mean Corpuscular Volume 92.1 fL (80-94); Mean Platelet Vol. 10.2 fl (6.2-12.0); Monocyte# 0.82 X10^3/uL; Monocyte% 6.6 % (0-10); Neutrophil # 6.63 X10^3/uL (2.7-7.7); Neutrophil % 53.1 % (47-70); Platelet Count 278 K/mm3 (150-450); RBC Distribution Width CV 13.9 % (11.6-14.6); RBC Distribution Width SD 46.9 fl (35.1-43.9); White Blood Count 12.5 K/mm3 (4.4-11.0)
[2019-01-12 13:20] LABS: POSITIVE COUNT NO; POSITIVE DIFFERENTIAL NO; POSITIVE MORPHOLOGY NO
[2019-01-12 13:24] LABS: International Normalized Ratio 2.9; Prothrombin Time (Protime)PT. 30.1 SECONDS (11.7-14.9)
[2019-01-12 14:03] LABS: AST(SGOT) 21 U/L (15-37); Alanine Aminotransfer ALT/SGPT 34 U/L (16-61); Albumin, Serum 3.5 g/dL (3.2-5.0); Alkaline Phosphatase 97 U/L (45-117); Bilirubin, Direct < 0.05 mg/dL (0.00-0.30); Globulin 3.8 g/dL (2.2-4.2); Protein, Total 7.3 g/dL (6.4-8.2); T4 Free Direct 0.93 ng/dL (0.76-1.46)
== END ==
PROVIDERS: Family Provider Family Medicine; PCP Family Medicine; Referring Provider Physician Assistant Medical; Visit Provider Physician Assistant Medical
DX: I48.91 Unspecified atrial fibrillation (principal); Z79.899 Other long term (current) drug therapy
CPT/HCPCS: 36415; 80076; 84439; 84443; 85025; 85610

== ENCOUNTER → 2019-04-25 | Outpatient (CLI) | payer OTHER, SELFPAY ==
[2019-01-12 11:48] VITALS: BMI 40.8
--- NOTE | 2019-04-25 09:07 | RAD_ITS ---
STUDY: X-RAY CHEST REASON FOR EXAM: Male, 54 years old. Shortness of breath weakness TECHNIQUE: PA and lateral views of the chest. COMPARISON: January 10, 2018 chest x-ray FINDINGS: The lungs are clear and expanded. There is no demonstrated pleural abnormality. Normal size heart. Normal mediastinum and jesus. Normal visualized pulmonary arteries. Normal visualized aortic arch and descending thoracic aorta. There are diffuse degenerative changes of the visualized thoracic spine. Normal visualized ribs, clavicles, and shoulders. There is no demonstrated abnormality of the visualized soft tissue structures of the upper abdomen. RAD/Chest PA and Lateral IMPRESSION: Degenerative changes, as described above. No demonstrated acute cardiopulmonary process. Electronically Signed: Yamile Choi MD at 16:56 EDT Tel , Service support ,
== END | disposition home or self-care (01) ==
PROVIDERS: Referring Provider Nurse Practitioner Family; Visit Provider Nurse Practitioner Family
DX: I48.91 Unspecified atrial fibrillation (principal); R06.09 Other forms of dyspnea; Z79.01 Long term (current) use of anticoagulants; Z79.899 Other long term (current) drug therapy
CPT/HCPCS: 71046

== ENCOUNTER 2019-05-02 08:05 | Outpatient (RCR) | payer OTHER, SELFPAY ==
[2018-12-09 10:09] VITALS: BMI 39.3
[2019-01-12 11:48] VITALS: BMI 40.8
[2019-04-25 09:59] LABS: Hematocrit 42.4 % (40-54); Hemoglobin 14.1 g/dl (13.0-16.5); Mean Corp Hgb Conc 33.3 g/gl (32-36); Mean Corpuscular Hgb 30.1 pg (27.0-32.0); Mean Corpuscular Volume 90.4 fL (80-94); Platelet Count 288 K/mm3 (150-450); RBC Distribution Width CV 13.8 % (11.6-14.6); RBC Distribution Width SD 45.4 fl (35.1-43.9); Red Blood Count 4.69 M/mm3 (4.6-6.2)
[2019-04-25 10:01] LABS: Scan Indicated on CBC? Y/N NO
[2019-04-25 10:18] LABS: International Normalized Ratio 1.6
[2019-04-25 10:39] LABS: BNP,B-Type NATRIURETIC PEPTIDE 19.5 pg/mL (0-100)
[2019-04-25 10:41] LABS: Anion Gap 6 (5-15); BUN 16 mg/dL (7-18); BUN/Creat Ratio 13.3 RATIO (10-20); Calcium,Total 9.3 mg/dL (8.5-10.1); Chloride 104 mmol/L (98-107); EST Glomerular Filtration Rate 67 mL/min (>60); Est Glom Filt Rate - Afr Amer 81 mL/min (>60); Glucose 87 mg/dL (74-106); Potassium 4.8 mmol/L (3.5-5.1); Sodium Level 138 mmol/L (136-145); T4 Total, Thyroxin 10.8 ug/dL (4.5-12.1); Thyroid Stim Hormone (TSH) 3.63 uIU/mL (0.358-3.74)
[2019-05-02 08:39] LABS: International Normalized Ratio 1.5; Prothrombin Time (Protime)PT. 18.3 SECONDS (11.7-14.9)
== END 2019-05-02 09:00 | disposition home or self-care (01) ==
LOC: LAB 08:05
PROVIDERS: Nurse Practitioner Family; Referring Provider Internal Medicine Cardiovascular Disease; Visit Provider Internal Medicine Cardiovascular Disease
DX: I48.0 Paroxysmal atrial fibrillation (principal); Z79.01 Long term (current) use of anticoagulants; R06.09 Other forms of dyspnea; Z79.899 Other long term (current) drug therapy
CPT/HCPCS: 36415; 80048; 83880; 84436; 84443; 85027; 85610

== ENCOUNTER 2019-05-31 15:07 | Outpatient (RCR) | payer OTHER, SELFPAY ==
[2019-01-12 11:48] VITALS: BMI 40.8
[2019-05-15 16:31] LABS: International Normalized Ratio 1.8; Prothrombin Time (Protime)PT. 20.6 SECONDS (11.7-14.9)
[2019-05-31 15:42] LABS: International Normalized Ratio 2.3
== END 2019-05-31 16:27 | disposition home or self-care (01) ==
LOC: LAB 15:07
PROVIDERS: Referring Provider Internal Medicine Cardiovascular Disease; Visit Provider Internal Medicine Cardiovascular Disease
DX: I48.0 Paroxysmal atrial fibrillation (principal); Z79.01 Long term (current) use of anticoagulants
CPT/HCPCS: 36415; 85610

== ENCOUNTER 2019-07-04 11:02 | Outpatient (RCR) | payer OTHER, SELFPAY ==
[2019-06-06 10:09] VITALS: BMI 41.3
[2019-07-04 12:02] LABS: International Normalized Ratio 2.3; Prothrombin Time (Protime)PT. 24.9 SECONDS (11.7-14.9)
== END 2019-07-08 09:26 | disposition home or self-care (01) ==
LOC: LAB 11:02
PROVIDERS: Referring Provider Internal Medicine Cardiovascular Disease; Visit Provider Internal Medicine Cardiovascular Disease
DX: I48.0 Paroxysmal atrial fibrillation (principal); Z79.01 Long term (current) use of anticoagulants
CPT/HCPCS: 36415; 85610

== ENCOUNTER 2019-09-05 08:41 | Outpatient (RCR) | payer OTHER, SELFPAY ==
[2019-06-06 10:09] VITALS: BMI 41.3
[2019-09-05 09:17] LABS: International Normalized Ratio 2.3; Prothrombin Time (Protime)PT. 25.7 SECONDS (11.7-14.9)
== END 2019-09-05 18:00 | disposition home or self-care (01) ==
LOC: LAB 08:41
PROVIDERS: Referring Provider Internal Medicine Cardiovascular Disease; Visit Provider Internal Medicine Cardiovascular Disease
DX: I48.0 Paroxysmal atrial fibrillation (principal); Z79.01 Long term (current) use of anticoagulants
CPT/HCPCS: 36415; 85610

== ENCOUNTER 2019-10-11 14:39 | Outpatient (RCR) | payer OTHER, SELFPAY ==
[2019-06-06 10:09] VITALS: BMI 41.3
[2019-10-11 16:23] LABS: International Normalized Ratio 2.5; Prothrombin Time (Protime)PT. 26.8 SECONDS (11.7-14.9)
== END 2019-10-11 18:00 | disposition home or self-care (01) ==
LOC: LAB 14:39
PROVIDERS: Referring Provider Internal Medicine Cardiovascular Disease; Visit Provider Internal Medicine Cardiovascular Disease
DX: I48.0 Paroxysmal atrial fibrillation (principal); Z79.01 Long term (current) use of anticoagulants
CPT/HCPCS: 36415; 85610

== ENCOUNTER 2019-12-07 16:03 | Outpatient (RCR) | payer OTHER, SELFPAY ==
[2019-06-06 10:09] VITALS: BMI 41.3
[2019-12-07 16:58] LABS: International Normalized Ratio 2.6; Prothrombin Time (Protime)PT. 27.5 SECONDS (11.7-14.9)
[2019-12-07 18:06] LABS: D-Dimer Quantitative (DVT/PE) <= 0.27 FEU/ug/m (0.27-0.49)
== END 2019-12-07 18:00 | disposition home or self-care (01) ==
LOC: LAB 16:03
PROVIDERS: Nurse Practitioner Family; Referring Provider Internal Medicine Cardiovascular Disease; Visit Provider Internal Medicine Cardiovascular Disease
DX: I48.0 Paroxysmal atrial fibrillation (principal); Z79.01 Long term (current) use of anticoagulants
CPT/HCPCS: 36415; 85379; 85610

== ENCOUNTER → 2019-12-12 09:51 | Outpatient (CLI) | payer OTHER, SELFPAY ==
[2019-06-06 10:09] VITALS: BMI 41.3
[2019-12-12 07:28] VITALS: BMI 40.6
[2019-12-12 11:49] LABS: AST(SGOT) 16 U/L (15-37); Alanine Aminotransfer ALT/SGPT 26 U/L (16-61); Albumin, Serum 3.7 g/dL (3.2-5.0); Alkaline Phosphatase 103 U/L (45-117); Bilirubin, Direct 0.08 mg/dL (0.00-0.30); Globulin 4.1 g/dL (2.2-4.2); Protein, Total 7.8 g/dL (6.4-8.2); T4 Free Direct 0.93 ng/dL (0.76-1.46); Thyroid Stim Hormone (TSH) 3.04 uIU/mL (0.358-3.74); Total Bilirubin < 0.10 mg/dL (0.20-1.00)
== END ==
PROVIDERS: Referring Provider Nurse Practitioner Family; Visit Provider Nurse Practitioner Family
DX: I48.0 Paroxysmal atrial fibrillation (principal); Z79.01 Long term (current) use of anticoagulants; Z79.899 Other long term (current) drug therapy
CPT/HCPCS: 36415; 80076; 84439; 84443

== ENCOUNTER 2020-01-11 13:59 | Emergency (ER) | payer OTHER, SELFPAY ==
[2019-12-12 07:28] VITALS: BMI 40.6
--- NOTE | 2020-01-11 | CYSPIN_PTH ---
PATIENT: JANES CANALES LOC: ED U#:[id number] AGE/SX: 55/M ROOM: RE01/11/[address]: Dr. Breezy Castro MD : [id number] BED: DIS: 01/11/2020 SPEC #: [id number] RECD: 01/12/20 09:58 STATUS: WILL RUPALI #: [id number] JANE: 01/11/20 00:[address]: Breezy Castro DEPT: CYTOLOGY RECD BY: Markell Darby ENTERED: 01/12/20 09:58 SP TYPE: CYSPIN FL OT DR: No Primary Care Phys Tissues: Urine Procedures: Pap Stain (control) Special Stain Group II Cytospin Fluid HEADER OPERATION: Not noted PRE-OP DIAGNOSIS: Abdominal pain TISSUE SUBMITTED: Urine for cytology DIAGNOSIS CYTOLOGY Urine for cytology (cytospin): Rare atypical urothelial cells noted. Numerous crystals are also noted. See comment. SJ:tona 01/12/20 COMMENT Clinical correlation and appropriate follow up are necessary. CYTOLOGY STUDY Slides are reviewed. CYTOLOGY GROSS Received is 7 ml of clear orange fluid labeled with the patient's name and and designated per the requisition as urine. Submitted for cytology preparation. / tona 01/12/20 TC:5 CPT: 65559
[2020-01-11 14:01] VITALS: BP 122/71; PULSE 70; RESP 16; TEMP 37.1; O2SAT 97; BMI 40.4
[2020-01-11 14:36] VITALS: RESP 16
--- NOTE | 2020-01-11 15:13 | CT_ITS ---
STUDY: CT ABDOMEN AND PELVIS WITHOUT CONTRAST REASON FOR EXAM: Male, 55 years old. ABD PAIN/HEMATURIA -- QT-[id number] COUMADIN RADIATION DOSAGE (If Supplied By Facility): CTDIvol = ( 22.57 ) mGy, DLP = ( 1178.52 ) mGycm TECHNIQUE: Transaxial images were obtained from the dome of the diaphragm to the symphysis pubis without oral contrast, and without intravenous contrast. Sagittal and coronal images were reconstructed. Individualized dose optimization techniques were used for this CT. COMPARISON: None. FINDINGS: The visualized lung bases are unremarkable. The visualized portions of the heart are within normal limits. There is decreased attenuation of the liver consistent with steatosis. Normal gallbladder and extrahepatic biliary system. Normal spleen. Normal pancreas. Normal bilateral adrenal glands. Normal right kidney. Normal left kidney. Normal visualized stomach. Normal small intestine. There are multiple colonic diverticula consistent with diverticulosis. The appendix is visualized and appears normal. Normal abdominal aorta. Normal inferior vena cava. Normal retroperitoneum. Normal urinary bladder. Normal abdominal wall. L5 spondylolysis with grade 1 spondylolisthesis of L5 on S1. CT/Abdomen/Pelvis without Cont IMPRESSION: 1. No renal or ureteral stone. 2. Fatty infiltration of the liver. Electronically Signed: Attila Echevarria MD at 16:41 EST Tel , Service support ,
[2020-01-11] MEDS: Ondansetron 4 MG/2 ML Vial IV (16:01)
[2020-01-11] MEDS: 0.9% Normal Saline 1,000 ML 1000 ML IV (16:01)
[2020-01-11 16:02] LABS: Bacteria 0 SEEN /hpf (None Seen); White Blood Cells 0 SEEN /hpf (0-5)
[2020-01-11] MEDS: Acetaminophen 500 MG Tablet 1000 MG PO (16:02)
[2020-01-11 16:03] LABS: Glucose, Dipstick Normal (Normal); Ketone-Dipstick Negative (Negative); Leukocyte Esterase-Dipstick Negative /ul (Negative); Nitrite-Dipstick Positive (Negative); Occult Blood-Urine 10 /ul (Negative); Protein-Dipstick 15 mg/dl (Negative); Specific Gravity, Urine 1.015 (1.002-1.030); Urine Clarity Clear (Clear); Urine Urobilinogen 8 mg/dl (Normal)
[2020-01-11 16:04] VITALS: BP 127/73; PULSE 65; RESP 16; TEMP 36.6; O2SAT 95
[2020-01-11 16:07] LABS: Absolute Lymphocyte Count 5.04 X10^3/uL (0.83-4.51); Absolute Neutrophil Count 4.8 X10^3/uL (2.0-7.7); Basophil# 0.07 X10^3/uL; Basophil% 0.6 % (0-1); Eosinophil# 0.18 X10^3/uL; Eosinophils% 1.7 % (0-5); Hematocrit 44.5 % (40-54); Hemoglobin 14.6 g/dL (13.0-16.5); Lymphocyte # 5.04 X10^3/ul (4.0); Lymphocyte % 46.8 % (19-41); Mean Corp Hgb Conc 32.8 g/dL (32-36); Mean Corpuscular Hgb 29.1 pg (27.0-32.0); Mean Corpuscular Volume 88.6 fL (80-94); Monocyte# 0.65 X10^3/uL; NRBC Flagged by Analyzer 0 % (0-5); Neutrophil % 44.5 % (47-70); POSITIVE DIFFERENTIAL YES; Platelet Count 309 K/mm3 (150-450); RBC Distribution Width CV 13.9 % (11.6-14.6); RBC Distribution Width SD 44.6 fl (35.1-43.9); Red Blood Count 5.02 M/mm3 (4.6-6.2); White Blood Count 10.8 K/mm3 (4.4-11.0)
[2020-01-11 16:16] LABS: Differential Indicated SCAN CRITERIA MET
[2020-01-11 16:20] LABS: International Normalized Ratio 2.5; Prothrombin Time (Protime)PT. 26.6 SECONDS (11.7-14.9)
[2020-01-11 16:21] LABS: Color, Urine SEE COMMENT BELOW (Yellow); Urine Bilirubin Dipstick 6 mg/dL (Negative)
[2020-01-11 16:25] LABS: Anion Gap 6 (5-15); BUN 15 mg/dL (7-18); BUN/Creat Ratio 14.6 RATIO (10-20); Calcium,Total 9.1 mg/dL (8.5-10.1); Chloride 106 mmol/L (98-107); Creatinine, Serum 1.03 mg/dL (0.70-1.30); EST Glomerular Filtration Rate 80 mL/min (>60); Est Glom Filt Rate - Afr Amer 97 mL/min (>60); Estimated Creatinine Clearance 84.65 ml/min; Glucose 80 mg/dL (74-106); Potassium 4.1 mmol/L (3.5-5.1); Sodium Level 137 mmol/L (136-145)
[2020-01-11 16:34] LABS: Hyaline Cast 0-5 SEEN /lpf (0-5); Squamous Epithelial Cells - UA 0-5 SEEN /hpf (0-5)
[2020-01-11 16:36] LABS: Mucous, Urine RARE /hpf (<or=2+)
[2020-01-11 16:38] LABS: Red Blood Cells-Urine 0-5 SEEN /hpf (0-5)
[2020-01-11 16:49] LABS: Platelet Estimate ADEQUATE (ADEQ); Reactive Lymphocyte 2+; Red Cell Morphology NORM C+C NORMAL (NORM C&C)
--- NOTE | 2020-01-11 16:49 | ED.VISSUMM ---
- ER Visit Summary Date of Service: 01/11/20 Chief Complaint: Abdominal pain History of Present Illness: The patient is a 55 M with no primary care physician. He is on Coumadin for atrial fibrillation. He reports that he has had lower abdominal pain for the past 3 days. He describes this as a pressure. Stated 10 at worst and 2 out of 10 currently. Is worsened by movement relieved by remaining still. Denies any nausea vomiting. He reports that he has hematuria that began 3 days ago. He denies any dysuria or frequency. He does report that he has been taking Azo today. He denies any fever or chills. He does complain of low back pain. Physical Examination: Vitals: Stable. Afebrile. General: Well-nourished and well-developed. Head: Normocephalic atraumatic. Neck: Supple, no lymphadenopathy. No JVD. Nontender. Cardiovascular: Regular rate and rhythm. No murmurs. Respiratory: No respiratory distress. Clear to auscultation bilaterally. Abdominal: Soft, mild suprapubic tenderness to palpation, nondistended, normal bowel sounds. No guarding, rebound, or peritoneal signs. Back: Nontender. Extremities: Nontender, no edema. Skin: Normal color, no rash. Neurologic: Alert and oriented ?3. Cranial nerves II through XII are intact. Normal strength and sensation. Psych: Normal affect. Test Results: CBC shows 7 neutrophils of 45 and lymphocytes of 47. Chem-7 is normal. INR is 2.5. UA shows nitrites and blood on the macro, but he has taken Azo. The micro was negative. This was sent for culture. Clinical Impression(s) from Imaging Studies Abdomen/Pelvis CT 01/11/20 15:13 IMPRESSION: 1. No renal or ureteral stone. 2. Fatty infiltration of the liver. Electronically Signed: Attila Echevarria MD at 16:41 EST Tel , Service support , Emergency Department Course and Treatment: Patient was given Tylenol p.o. and Zofran IV. He was given a dose of Keflex p.o. Bladder scan shows less than 100 cc. Treatment Plan: Patient was discussed with Dr. Lopez. He does have a family history of bladder cancer. His urine will be sent for cytology. He will be discharged on Keflex instructed to follow-up in 1 week for another exam. He does understand that if he is not improving he may require cystoscopy to rule out more serious pathology. Return to the emergency department for any worsening symptoms. Disposition: To home in improved and stable condition. Impression: 1. Hematuria. 2. Coumadin coagulopathy. This note was generated with [employer] dictation software. It may contain incorrect words, spelling, and punctuation that were not noted in review of the chart prior to signing ED Disposition - Plan for ED Patient: Disposition: Home or Assisted Living Instructions: Hematuria Prescriptions: Cephalexin [Keflex] 500 mg PO Q12 #14 cap Prescription Printed Hydrocodone Bitart/Apap 5-325 [[place] 5MG-325MG] 1 tab PO Q4H PRN PRN 2 Days #10 tab PRN Reason: Pain Prescription Printed Ondansetron [Zofran Odt] 4 mg PO Q8H PRN PRN #10 tab PRN Reason: Nausea Prescription Printed Referrals: Kamilah Lopez MD [STAFF PHYSICIAN] - 1 Week
[2020-01-11 17:44] VITALS: BP 127/70; PULSE 59; RESP 16; O2SAT 98
[2020-01-11] MEDS: Cephalexin 500 MG Capsule PO (18:13)
[2020-01-11 18:16] VITALS: RESP 16
[2020-01-11 18:28] LABS: Cytology, Body Fluid / CSF SEE PATHOLOGY REPORT
== END 2020-01-11 18:17 | disposition home or self-care (01) ==
PROVIDERS: Emergency Provider Emergency Medicine
DX: R31.9 Hematuria, unspecified (principal); R79.1 Abnormal coagulation profile; Z79.01 Long term (current) use of anticoagulants; Z79.82 Long term (current) use of aspirin
CPT/HCPCS: 74176; 80048; 81001; 85025; 85610; 87086; 87088; 88108; 88313; 96361; 96374; 99285; J7030; J2405

== ENCOUNTER → 2020-02-14 10:49 | Outpatient (CLI) | payer OTHER, SELFPAY ==
[2020-02-14 10:08] VITALS: BMI 39.9
--- NOTE | 2020-02-14 10:54 | RAD_ITS ---
STUDY: X-RAY CHEST REASON FOR EXAM: Male, 55 years old. COUGH, DYSPNEA; -- H/O AFIB TECHNIQUE: PA and lateral views of the chest. COMPARISON: Comparison is made with prior study dated April 25, 2019. FINDINGS: The lungs are clear and expanded. Scattered calcified granulomas. There is no demonstrated pleural abnormality. Normal size heart. Normal mediastinum and jesus. Normal visualized pulmonary arteries. Normal visualized aortic arch and descending thoracic aorta. There are diffuse degenerative changes of the visualized thoracic spine. Normal visualized ribs, clavicles, and shoulders. There is no demonstrated abnormality of the visualized soft tissue structures of the upper abdomen. RAD/Chest PA and Lateral IMPRESSION: Normal x-ray examination of the chest. Electronically Signed: Jeevan Mcmahon, at 11:22 EDT , Service support ,
== END ==
PROVIDERS: Referring Provider Physician Assistant Medical; Visit Provider Physician Assistant Medical
DX: I48.0 Paroxysmal atrial fibrillation (principal); R07.9 Chest pain, unspecified
CPT/HCPCS: 71046

== ENCOUNTER 2020-02-14 11:18 | Outpatient (RCR) | payer OTHER, SELFPAY ==
[2019-06-06 10:09] VITALS: BMI 41.3
[2020-02-14 10:08] VITALS: BMI 39.9
[2020-02-14 11:51] LABS: Absolute Lymphocyte Count 4.53 X10^3/uL (0.83-4.51); Absolute Neutrophil Count 6.3 X10^3/uL (2.0-7.7); Basophil# 0.06 X10^3/uL; Basophil% 0.5 % (0-1); Eosinophil# 0.23 X10^3/uL; Eosinophils% 1.9 % (0-5); Hematocrit 44.8 % (40-54); Hemoglobin 14.8 g/dL (13.0-16.5); Lymphocyte # 4.53 X10^3/ul (4.0); Lymphocyte % 38.1 % (19-41); Mean Corpuscular Hgb 29.6 pg (27.0-32.0); Mean Corpuscular Volume 89.6 fL (80-94); Mean Platelet Vol. 9.8 fl (6.2-12.0); Monocyte# 0.73 X10^3/uL; Monocyte% 6.1 % (0-10); NRBC Flagged by Analyzer 0 % (0-5); Neutrophil # 6.28 X10^3/uL (2.7-7.7); Platelet Count 312 K/mm3 (150-450); RBC Distribution Width CV 13.9 % (11.6-14.6); RBC Distribution Width SD 45.3 fl (35.1-43.9); White Blood Count 11.9 K/mm3 (4.4-11.0)
[2020-02-14 12:03] LABS: BNP,B-Type NATRIURETIC PEPTIDE 31.1 pg/mL (0-100)
[2020-02-14 12:14] LABS: International Normalized Ratio 2.7; Prothrombin Time (Protime)PT. 28.2 SECONDS (11.7-14.9)
[2020-02-14 12:19] LABS: Anion Gap 5 (5-15); BUN 19 mg/dL (7-18); BUN/Creat Ratio 16.5 RATIO (10-20); Calcium,Total 9.8 mg/dL (8.5-10.1); Chloride 105 mmol/L (98-107); Creatinine, Serum 1.15 mg/dL (0.70-1.30); EST Glomerular Filtration Rate 70 mL/min (>60); Est Glom Filt Rate - Afr Amer 85 mL/min (>60); Glucose 94 mg/dL (74-106); Potassium 4.2 mmol/L (3.5-5.1); Sodium Level 138 mmol/L (136-145)
== END 2020-03-07 18:00 | disposition home or self-care (01) ==
LOC: LAB 11:18
PROVIDERS: Referring Provider Internal Medicine Cardiovascular Disease; Visit Provider Internal Medicine Cardiovascular Disease
DX: I48.0 Paroxysmal atrial fibrillation (principal); Z79.01 Long term (current) use of anticoagulants
CPT/HCPCS: 36415; 80048; 83880; 85025; 85610

== ENCOUNTER → 2020-03-15 12:49 | Outpatient (CLI) | payer MEDICAID, SELFPAY ==
[2020-02-14 10:08] VITALS: BMI 39.9
--- NOTE | 2020-03-15 12:51 | ECHOCS_ITS ---
Reason For Study: DYSPNEA/SOB Procedure This was a 2D Doppler, Color Flow transthoracic echocardiogram. Exam performed in department. Left Ventricle Normal LV size. Left ventricular systolic function is normal. The estimated ejection fraction is 60 %. Stage 2 diastolic dysfunction. No regional wall motion abnormalities noted. Right Ventricle Normal RV size. Normal systolic function. Atria Normal left atrium. Normal right atrium. Mitral Valve Normal mitral valve. Tricuspid Valve Normal tricuspid valve. Aortic Valve Normal aortic valve. Pulmonic Valve Normal pulmonic valve. Great Vessels Normal aortic root. The pulmonary artery is normal size. Normal inferior vena cava. Pericardium/Pleural No pericardial effusion. Medication 22 gauge I.V. with prn adaptor inserted into left arm. Diluted definity 5ml given slow IV push to enhance endocardial definition. MMode/2D Measurements & Calculations LVIDd: 4.6 cm IVSd: 1.0 cm Ao root diam: 3.3 cm LVIDs: 3.1 cm LVPWd: 1.0 cm RVDd: 4.4 cm FS: 32.0 % LAV(MOD-bp): 56.2 ml LVAd ap4: 34.5 cm2 SV(MOD-sp4): 79.4 ml LAV(MOD-bp) Indexed: 24.5 ml/m2 EDV(MOD-sp4): 119.8 ml LAV(MOD-sp2): 60.7 ml EDV(sp4-el): 122.2 ml LAV(MOD-sp4): 49.4 ml LVAs ap4: 17.4 cm2 ESV(MOD-sp4): 40.4 ml ESV(sp4-el): 39.6 ml EF(MOD-sp4): 66.3 % EF(sp4-el): 67.6 % SV(sp4-el): 82.6 ml LA A4 area: 19.3 cm2 LA dimension(2D): 3.9 cm RA A4 area: 17.1 cm2 Time Measurements MV dec time: 0.31 sec Doppler Measurements & Calculations MV E max gibran: 102.0 cm/sec Lat Peak E' Gibran: 10.9 cm/sec Med Peak E' Gibran: 8.9 cm/sec MV A max gibran: 89.0 cm/sec E/E' lat: 9.4 E/E' med: 11.4 MV E/A: 1.1 Ao V2 max: 161.5 cm/sec LV V1 max: 113.3 cm/sec PA V2 max: 116.6 cm/sec Ao max P.4 mmHg LV V1 max P.1 mmHg TR max gibran: 258.9 cm/sec TR max P.8 mmHg Interpretation Summary Normal LV size. Left ventricular systolic function is normal. The estimated ejection fraction is 60 %. Stage 2 diastolic dysfunction. Contrast injection was performed. Ordering Physician: Tracey Tabor/Julio Borrero Referring Physician: Tracey Tabor Performed By: Andree Oviedo RDCS
--- NOTE | 2020-03-16 07:03 | PFT ---
INTRODUCTION: The patient is a 55-year-old male that presents for pulmonary function studies secondary to a diagnosis of atrial fibrillation. Respiratory therapy reports good patient effort. Bronchodilators were used during testing. INTERPRETATION: Forced expiration spirometry demonstrates no evidence of a large airways obstructive ventilatory defect. There was no significant response to aerosolized bronchodilators, based upon strict ATS criteria. Spirograms are of good quality and plateau normally. Body plethysmography was performed and reveals a decreased TLC to 5.46 L, 81% predicted, indicative of a mild restrictive ventilatory impairment. Diffusing capacity by single breath CO is within normal limits. IMPRESSION: Isolated mild restrictive ventilatory impairment with preserved diffusing capacity.
== END ==
PROVIDERS: Referring Provider Physician Assistant Medical; Visit Provider Physician Assistant Medical
DX: I48.0 Paroxysmal atrial fibrillation (principal); R06.09 Other forms of dyspnea
CPT/HCPCS: 36415; 85610; 93306; 94060; 94726; 94729; Q9957; A4216; C8929

== ENCOUNTER 2020-03-15 15:08 | Outpatient (RCR) | payer MEDICAID, SELFPAY ==
[2020-03-15 16:05] LABS: International Normalized Ratio 2.1; Prothrombin Time (Protime)PT. 23.3 SECONDS (11.7-14.9)
== END 2020-03-15 18:00 | disposition home or self-care (01) ==
LOC: LAB 15:08
PROVIDERS: Nurse Practitioner Family; Referring Provider Internal Medicine Cardiovascular Disease; Visit Provider Internal Medicine Cardiovascular Disease
DX: I48.0 Paroxysmal atrial fibrillation (principal); Z79.01 Long term (current) use of anticoagulants
CPT/HCPCS: 36415; 85610

== ENCOUNTER 2020-08-15 09:12 | Outpatient (RCR) | payer MEDICAID, SELFPAY ==
[2020-08-15 10:16] LABS: Prothrombin Time (Protime)PT. 22.3 SECONDS (11.7-14.9)
[2020-08-15 12:03] LABS: AST(SGOT) 14 U/L (15-37); Alanine Aminotransfer ALT/SGPT 26 U/L (16-61); Albumin, Serum 3.6 g/dL (3.2-5.0); Alkaline Phosphatase 114 U/L (45-117); Bilirubin, Direct 0.05 mg/dL (0.00-0.30); Cholesterol 213 mg/dL (200); Globulin 4.4 g/dL (2.2-4.2); High Density Lipoprotein 32 mg/dL; Triglycerides 729 mg/dL
== END 2020-08-15 18:00 | disposition home or self-care (01) ==
LOC: LAB 09:12
PROVIDERS: Referring Provider Internal Medicine Cardiovascular Disease; Visit Provider Internal Medicine Cardiovascular Disease
DX: I48.0 Paroxysmal atrial fibrillation (principal); Z79.01 Long term (current) use of anticoagulants; E78.5 Hyperlipidemia, unspecified
CPT/HCPCS: 36415; 80061; 80076; 85610

== ENCOUNTER → 2020-09-20 13:50 | Outpatient (CLI) | payer MEDICAID, SELFPAY ==
[2020-09-20 13:14] VITALS: BMI 40.3
--- NOTE | 2020-09-20 14:22 | CT_ITS ---
STUDY: CT ABDOMEN AND PELVIS WITH CONTRAST REASON FOR EXAM: Male, 55 years old. Left lower quadrant pain. RADIATION DOSAGE (If Supplied By Facility): CTDIvol = ( 17.65 ) mGy, DLP = ( 1115.04 ) mGycm TECHNIQUE: Transaxial images were obtained from the dome of the diaphragm to the symphysis pubis without oral contrast. 100 ml of ISOVUE-300 contrast was administered. Sagittal and coronal images were reconstructed. Individualized dose optimization techniques were used for this CT. COMPARISON: 01/11/20 FINDINGS: There is a calcified granuloma in the left lower lobe. The visualized lung bases are otherwise clear. The visualized portions of the heart and pericardium are within normal limits. There are no calcified gallstones present. The liver is within normal limits. There are calcified granuloma noted in the liver. There are no suspicious hepatic lesions. The spleen is normal in size. The pancreas is within normal limits. The adrenal glands are within normal limits. There are no renal or ureteral stones. There is no hydronephrosis. There are no focal renal lesions. Normal visualized stomach. There is no bowel obstruction. There are mild inflammatory changes in the left lower quadrant adjacent to an inflamed sigmoid diverticulum. This is consistent with mild acute sigmoid diverticulitis. The appendix is visualized and appears normal. The aorta is normal in caliber. There is no abdominal or pelvic free air, free fluid, fluid collection or lymphadenopathy. There are no destructive osseous lesions. CT/Abdomen/Pelvis WITH Contrast IMPRESSION: Mild acute sigmoid diverticulitis without evidence of perforation or abscess formation. Electronically Signed: Miguel Mohamud, at 16:57 EST Tel , Service support ,
[2020-09-20 14:28] LABS: Absolute Lymphocyte Count 5.17 X10^3/uL (0.83-4.51); Basophil# 0.06 X10^3/uL; Basophil% 0.5 % (0-1); Eosinophil# 0.18 X10^3/uL; Eosinophils% 1.5 % (0-5); Hematocrit 46.5 % (40-54); Lymphocyte # 5.17 X10^3/ul (4.0); Lymphocyte % 42.4 % (19-41); Mean Corp Hgb Conc 32.3 g/dL (32-36); Mean Corpuscular Hgb 28.4 pg (27.0-32.0); Mean Corpuscular Volume 87.9 fL (80-94); Mean Platelet Vol. 9.6 fl (6.2-12.0); Monocyte# 0.74 X10^3/uL; Monocyte% 6.1 % (0-10); NRBC Flagged by Analyzer 0 % (0-5); Neutrophil # 5.99 X10^3/uL (2.7-7.7); Neutrophil % 49.1 % (47-70); POSITIVE DIFFERENTIAL YES; Platelet Count 338 K/mm3 (150-450); RBC Distribution Width CV 14.4 % (11.6-14.6); RBC Distribution Width SD 46.3 fl (35.1-43.9); Red Blood Count 5.29 M/mm3 (4.6-6.2); White Blood Count 12.2 K/mm3 (4.4-11.0)
[2020-09-20 14:32] LABS: Differential Indicated SCAN CRITERIA MET
[2020-09-20 14:44] LABS: ALB/GLOB Ratio 0.8 RATIO (0.9-2.4); AST(SGOT) 12 U/L (15-37); Alanine Aminotransfer ALT/SGPT 25 U/L (16-61); Albumin, Serum 3.6 g/dL (3.2-5.0); Alkaline Phosphatase 129 U/L (45-117); Anion Gap 4 (5-15); BUN 13 mg/dL (7-18); Calcium,Total 9.2 mg/dL (8.5-10.1); Chloride 105 mmol/L (98-107); EST Glomerular Filtration Rate 83 mL/min (>60); Est Glom Filt Rate - Afr Amer 100 mL/min (>60); Globulin 4.3 g/dL (2.2-4.2); Glucose 112 mg/dL (74-106); Potassium 3.9 mmol/L (3.5-5.1); Protein, Total 7.9 g/dL (6.4-8.2); Sodium Level 139 mmol/L (136-145)
[2020-09-20 14:54] LABS: International Normalized Ratio 1.8; Prothrombin Time (Protime)PT. 20.8 SECONDS (11.7-14.9)
--- NOTE | 2020-09-20 15:27 | EKG12_ITS ---
Test Reason : Blood Pressure : / mmHG Vent. Rate : 119 BPM Atrial Rate : 087 BPM P-R Int : 000 ms QRS Dur : 084 ms QT Int : 322 ms P-R-T Axes : 000 007 046 degrees QTc Int : 452 ms Atrial fibrillation Abnormal ECG Confirmed by THEODORA BRAXTON MD ([id number]), news videotape editor FANTASMA PATTERSON ([id number]) on 09/23/2020 1:21:23 PM Referred By: FOX Confirmed By:THEODORA BRAXTON MD
[2020-09-20 15:48] LABS: Anisocytosis RARE; Platelet Estimate ADEQUATE (ADEQ); Red Cell Morphology N CHROM NORMAL (NORM C&C)
[2020-09-23 11:32] LABS: Pathologist Review Reviewed
== END ==
PROVIDERS: PCP Nurse Practitioner Family; Visit Provider Surgery
DX: R10.32 Left lower quadrant pain (principal); I48.0 Paroxysmal atrial fibrillation; Z86.19 Personal history of other infectious and parasitic diseases; Z79.01 Long term (current) use of anticoagulants
CPT/HCPCS: 36415; 74177; 80053; 85025; 85610; 93005; Q9967

== ENCOUNTER → 2020-09-23 12:00 | Outpatient (CLI) | payer MEDICAID, SELFPAY ==
[2020-09-20 13:14] VITALS: BMI 40.3
--- NOTE | 2020-09-23 12:02 | EKG12_ITS ---
Test Reason : ROUTINE Blood Pressure : / mmHG Vent. Rate : 075 BPM Atrial Rate : 075 BPM P-R Int : 168 ms QRS Dur : 086 ms QT Int : 384 ms P-R-T Axes : 040 -03 030 degrees QTc Int : 428 ms Normal sinus rhythm Inferior infarct , age undetermined Abnormal ECG Confirmed by FOX VENTURA, JULIO ([id number]), legal editor CARLOS VIRGEN ([id number]) on 09/24/2020 8:33:24 AM Referred By: Julio Borrero Confirmed By:JULIO BORRERO MD
== END ==
PROVIDERS: PCP Nurse Practitioner Family; Referring Provider Internal Medicine Cardiovascular Disease; Visit Provider Internal Medicine Cardiovascular Disease
DX: I48.0 Paroxysmal atrial fibrillation (principal); G47.33 Obstructive sleep apnea (adult) (pediatric); F17.200 Nicotine dependence, unspecified, uncomplicated; Z79.01 Long term (current) use of anticoagulants
CPT/HCPCS: 93005

== ENCOUNTER → 2020-09-25 11:47 | Outpatient (CLI) | payer MEDICAID, SELFPAY ==
[2020-09-20 13:14] VITALS: BMI 40.3
--- NOTE | 2020-09-25 11:49 | EKG12_ITS ---
Test Reason : RHYTHM Blood Pressure : / mmHG Vent. Rate : 056 BPM Atrial Rate : 056 BPM P-R Int : 170 ms QRS Dur : 090 ms QT Int : 396 ms P-R-T Axes : 037 -04 022 degrees QTc Int : 382 ms Sinus bradycardia Otherwise normal ECG Confirmed by FOX VENTURA, JULIO ([id number]), editor department CARLOS VIRGEN ([id number]) on 09/26/2020 11:42:13 AM Referred By: Julio Borrero Confirmed By:JULIO BORRERO MD
[2020-09-25 13:49] LABS: Prothrombin Time (Protime)PT. 22.6 SECONDS (11.7-14.9)
== END ==
PROVIDERS: PCP Nurse Practitioner Family; Referring Provider Internal Medicine Cardiovascular Disease; Visit Provider Internal Medicine Cardiovascular Disease
DX: I48.0 Paroxysmal atrial fibrillation (principal); F17.200 Nicotine dependence, unspecified, uncomplicated; G47.33 Obstructive sleep apnea (adult) (pediatric); Z79.01 Long term (current) use of anticoagulants
CPT/HCPCS: 36415; 85610; 93005

== ENCOUNTER → 2020-09-30 10:03 | Outpatient (CLI) | payer MEDICAID, SELFPAY ==
[2020-09-20 13:14] VITALS: BMI 40.3
== END ==
PROVIDERS: PCP Nurse Practitioner Family; Referring Provider Surgery; Visit Provider Surgery
DX: R19.7 Diarrhea, unspecified (principal)
CPT/HCPCS: 82274; 83630; 87177; 87209; 87493; 87506

== ENCOUNTER → 2020-10-04 10:26 | Outpatient (CLI) | payer MEDICAID, SELFPAY | PROVIDERS: PCP Nurse Practitioner Family; Referring Provider Surgery; Visit Provider Surgery | DX: R19.7 Diarrhea, unspecified (principal) | CPT/HCPCS: 87493 ==

== ENCOUNTER 2020-12-06 11:50 | Outpatient (RCR) | payer MEDICAID, SELFPAY ==
[2020-08-15 09:46] VITALS: BMI 40.1
[2020-09-20 13:14] VITALS: BMI 40.3
[2020-12-06 13:04] LABS: International Normalized Ratio 1.7; Prothrombin Time (Protime)PT. 19.8 SECONDS (11.7-14.9)
== END 2020-12-06 18:00 | disposition home or self-care (01) ==
LOC: LAB 11:50
PROVIDERS: Referring Provider Internal Medicine Cardiovascular Disease; Visit Provider Internal Medicine Cardiovascular Disease
DX: I48.0 Paroxysmal atrial fibrillation (principal); Z79.01 Long term (current) use of anticoagulants
CPT/HCPCS: 36415; 85610

== ENCOUNTER 2020-12-12 11:20 | Emergency (ER) | payer MEDICAID, SELFPAY ==
[2020-12-12 11:21] VITALS: BP 158/62; PULSE 74; RESP 16; TEMP 36.4; O2SAT 97; BMI 35.4
[2020-12-12 11:29] VITALS: BP 131/79; PULSE 69; RESP 17; O2SAT 98
--- NOTE | 2020-12-12 11:44 | CT_ITS ---
STUDY: CT ABDOMEN AND PELVIS WITHOUT CONTRAST REASON FOR EXAM: Male, 55 years old. EPIGASTRIC/CHEST PAIN X3 DAYS RADIATION DOSAGE (If Supplied By Facility): CTDIvol = ( 21.03 ) mGy, DLP = ( 1087.63 ) mGycm TECHNIQUE: Transaxial images were obtained from the dome of the diaphragm to the symphysis pubis without oral contrast, and without intravenous contrast. Sagittal and coronal images were reconstructed. Individualized dose optimization techniques were used for this CT. COMPARISON: Comparison is made with prior study dated 09/20/2020. FINDINGS: The visualized lung bases are unremarkable. Coronary artery calcification. There is decreased attenuation of the liver consistent with steatosis. Questionable sludge in the gallbladder lumen. There is a benign calcified granuloma of the spleen. Normal pancreas. Normal bilateral adrenal glands. Normal right kidney. Normal left kidney. There is a small hiatal hernia. Normal small intestine. There are scattered colonic diverticula consistent with diverticulosis. The appendix is visualized and appears normal. There is scattered atherosclerotic calcification of the abdominal aorta, without a demonstrated aneurysm. Normal inferior vena cava. There is borderline retroperitoneal lymphadenopathy with enlarged nodes no greater than 10mm in the short axis diameter. Normal urinary bladder. Normal abdominal wall. There are degenerative changes of the visualized lumbar spine. Spondylolysis of the pars interarticularis of the L5 vertebrae. CT/Abdomen/Pelvis without Cont IMPRESSION: Fatty infiltration of the liver. Questionable sludge in the gallbladder. Scattered sigmoid diverticula. Electronically Signed: Jeevan Mcmahon MD at 13:04 EST , Service support ,
--- NOTE | 2020-12-12 11:45 | EKG12_ITS ---
Test Reason : CP Blood Pressure : / mmHG Vent. Rate : 067 BPM Atrial Rate : 067 BPM P-R Int : 168 ms QRS Dur : 096 ms QT Int : 374 ms P-R-T Axes : 042 -19 035 degrees QTc Int : 395 ms Normal sinus rhythm Inferior infarct , age undetermined , cannot be excluded Abnormal ECG Confirmed by FELIZ VENTURA, ELKIN ([id number]), script editor FANTASMA PATTERSON ([id number]) on 12/13/2020 11:17:06 AM Referred By: ANAYELI Confirmed By:ELKIN PIPER MD
--- NOTE | 2020-12-12 11:49 | ED.DCSUM_ITS ---
History of Present Illness Chief Complaint: Chest Pain Narrative: Patient presents with epigastric pain which has been constant for the past 3 days, it is worse with movement but it is also worse after eating. She complains of chest pain however patient denies any chest pain he just says it is epigastric pain. No fever or chills. The pain does not radiate into the back. There is no tearing sensation. No syncopal episode no lightheadedness. No difficulty breathing. No lower abdominal pain. No diarrhea, denies any nausea. Past medical history: Reviewed Medications: Reviewed Social history: Noncontributory Review of systems: All systems negative except as indicated General: Denies: Fever Eyes: Denies: Visual changes - bilaterally ENT: Denies: Rhinorrhea, Sore throat Cardiovascular: Denies: Chest pain Respiratory: Denies: Dyspnea, Cough Gastrointestinal: Epigastric pain, slight left upper quadrant pain but no right upper quadrant pain no lower abdominal pain. No nausea vomiting diarrhea. Genitourinary: Denies: Dysuria Musculoskeletal: Denies: Myalgias Skin: Denies: Rash Neurological: Denies: Headache, no focal weakness Psych: Reports: negative Hematologic: Denies: Easy bruising, Easy bleeding Physical exam General: Well nourished, Well developed, No Acute Distress Head: Normocephalic, Atraumatic Eyes: Conjunctiva not pale ENT: Moist mucous membranes Neck: Supple, Nontender, No lymphadenopathy Cardiovascular: Regular rate, Regular rhythm Respiratory: No distress, CTA bilaterally Abdomen: Soft, there is epigastric pain to palpation and some supraumbilical pain to palpation, no right upper quadrant pain negative Vásquez's. No lower abdominal pain. No guarding or rebound. No abdominal wall defect. Back: Nontender, Normal Inspection. Negative for: CVA tenderness Extremities: Nontender, No edema Skin: Normal color, No rash Neurological: Alert, Normal Strength, Normal Sensation Psychological: Normal affect Past Medical History - Allergies and Home Meds Allergies/Adverse Reactions: Allergies amoxicillin trihydrate [From Augmentin] Adverse Reaction (Verified 12/12/20 11:28) Nausea/Vom/Diarrhea potassium clavulanate [From Augmentin] Adverse Reaction (Verified 12/12/20 11:28) Nausea/Vom/Diarrhea Primary Care Physician: Felicia Cosme AUTOMOTIVE SOFTWARE ENGINEER, [employer] SOFTWARE ENGINEER-C [Primary Care Provider] - Surgical History: no surgical history Smoking Status: Current every day smoker Physical Exam Vital Signs/Narrative: Vital Signs Temp Pulse Resp BP Pulse Ox 12/12/20 11:29 69 17 131/79 H 98 12/12/20 11:21 97.5 F L 74 16 158/62 H 97 Diagnostic/Tx/Re-eval - Rhythm Strip Rhythm Strip: Sinus Rhythm Rate: 67 Ectopy: None - EKG Initial EKG Interpretation: - - Sinus rhythm with a rate of 67. Normal [place] and QTc intervals. No obvious acute ischemic changes seen. Interpreted by emergency doctor - Medical Decision Making Patient has a normal work-up. He has an unremarkable EKG he has no signs or symptoms of colitis, his pain is either abdominal wall pain since it is reproducible in the abdominal wall region or its gastritis. I will treat him for gastritis and otherwise he can follow-up with Dr. Douglass. ED Disposition - Plan for ED Patient: Diagnosis: Abdominal pain Instructions: Treating Gastritis Prescriptions: Omeprazole 40 mg PO DAILY #20 capsule. Transmission Status: Pending to [facility]/pharmacy #[id number] Referrals: Aravind Douglass MD [STAFF PHYSICIAN] - 3-5 Days
[2020-12-12 11:59] VITALS: BP 120/83; PULSE 68; RESP 24; O2SAT 95
[2020-12-12 12:01] LABS: Absolute Neutrophil Count 6.2 X10^3/uL (2.0-7.7); Basophil# 0.07 X10^3/uL; Basophil% 0.6 % (0-1); Eosinophil# 0.14 X10^3/uL; Eosinophils% 1.2 % (0-5); Hematocrit 43.9 % (40-54); Hemoglobin 14.8 g/dL (13.0-16.5); Lymphocyte % 38.6 % (19-41); Mean Corp Hgb Conc 33.7 g/dL (32-36); Mean Corpuscular Hgb 30.3 pg (27.0-32.0); Mean Platelet Vol. 9.8 fl (6.2-12.0); NRBC Flagged by Analyzer 0 % (0-5); Neutrophil # 6.19 X10^3/uL (2.7-7.7); Neutrophil % 53.1 % (47-70); Platelet Count 289 K/mm3 (150-450); RBC Distribution Width CV 13.2 % (11.6-14.6); RBC Distribution Width SD 43.8 fl (35.1-43.9); Red Blood Count 4.88 M/mm3 (4.6-6.2); White Blood Count 11.7 K/mm3 (4.4-11.0)
[2020-12-12] MEDS: 0.9% Normal Saline 1,000 ML 1000 ML IV (12:13)
[2020-12-12 12:27] LABS: ALB/GLOB Ratio 0.9 RATIO (0.9-2.4); AST(SGOT) 12 U/L (15-37); Alanine Aminotransfer ALT/SGPT 24 U/L (16-61); Albumin, Serum 3.7 g/dL (3.2-5.0); Alkaline Phosphatase 130 U/L (45-117); Anion Gap 4 (5-15); BUN 14 mg/dL (7-18); BUN/Creat Ratio 15.9 RATIO (10-20); Calcium,Total 9.1 mg/dL (8.5-10.1); Chloride 105 mmol/L (98-107); Creatinine, Serum 0.88 mg/dL (0.70-1.30); EST Glomerular Filtration Rate 96 mL/min (>60); Est Glom Filt Rate - Afr Amer 116 mL/min (>60); Estimated Creatinine Clearance 95.96 ml/min; Glucose 109 mg/dL (74-106); Lipase 171 U/L (73-393); Potassium 4.2 mmol/L (3.5-5.1); Protein, Total 7.7 g/dL (6.4-8.2); Sodium Level 137 mmol/L (136-145)
[2020-12-12 14:18] VITALS: BP 122/77; PULSE 59; RESP 16; O2SAT 96
== END 2020-12-12 14:19 | disposition home or self-care (01) ==
PROVIDERS: Emergency Provider Emergency Medicine; PCP Nurse Practitioner Family
DX: R10.9 Unspecified abdominal pain (principal); F17.200 Nicotine dependence, unspecified, uncomplicated
CPT/HCPCS: 74176; 80053; 83690; 84484; 85025; 93005; 99283; J7030; A4216

== ENCOUNTER 2020-12-30 10:29 | Outpatient (RCR) | payer MEDICAID, SELFPAY ==
[2020-12-30 11:48] LABS: International Normalized Ratio 2.3; Prothrombin Time (Protime)PT. 24.7 SECONDS (11.7-14.9)
== END 2020-12-30 18:00 | disposition home or self-care (01) ==
LOC: LAB 10:29
PROVIDERS: PCP Nurse Practitioner Family; Referring Provider Internal Medicine Cardiovascular Disease; Visit Provider Internal Medicine Cardiovascular Disease
DX: I48.0 Paroxysmal atrial fibrillation (principal); Z79.01 Long term (current) use of anticoagulants
CPT/HCPCS: 36415; 85610

== ENCOUNTER 2021-02-27 12:21 | Outpatient (RCR) | payer MEDICAID, SELFPAY ==
[2021-02-27 12:52] LABS: International Normalized Ratio 2.3; Prothrombin Time (Protime)PT. 24.7 SECONDS (11.7-14.9)
[2021-02-27 13:14] LABS: AST(SGOT) 16 U/L (15-37); Alanine Aminotransfer ALT/SGPT 28 U/L (16-61); Albumin, Serum 3.7 g/dL (3.2-5.0); Alkaline Phosphatase 127 U/L (45-117); Bilirubin, Direct 0.09 mg/dL (0.00-0.30); Globulin 4.3 g/dL (2.2-4.2)
== END 2021-02-27 18:00 | disposition home or self-care (01) ==
LOC: LAB 12:21
PROVIDERS: PCP Nurse Practitioner Family; Referring Provider Internal Medicine Cardiovascular Disease; Visit Provider Internal Medicine Cardiovascular Disease
DX: I48.0 Paroxysmal atrial fibrillation (principal); Z79.01 Long term (current) use of anticoagulants; E78.00 Pure hypercholesterolemia, unspecified
CPT/HCPCS: 36415; 80076; 85610

== ENCOUNTER 2021-03-31 12:55 | Outpatient (RCR) | payer MEDICAID, SELFPAY ==
[2021-03-31 13:47] LABS: International Normalized Ratio 2.1; Prothrombin Time (Protime)PT. 22.9 SECONDS (11.7-14.9)
== END 2021-03-31 18:00 | disposition home or self-care (01) ==
LOC: LAB 12:55
PROVIDERS: PCP Nurse Practitioner Family; Referring Provider Internal Medicine Cardiovascular Disease; Visit Provider Internal Medicine Cardiovascular Disease
DX: I48.0 Paroxysmal atrial fibrillation (principal); Z79.01 Long term (current) use of anticoagulants; E78.00 Pure hypercholesterolemia, unspecified
CPT/HCPCS: 36415; 85610

== ENCOUNTER 2021-05-20 10:12 | Outpatient (RCR) | payer MEDICAID, SELFPAY ==
[2021-05-20 12:39] LABS: International Normalized Ratio 1.5; Prothrombin Time (Protime)PT. 17.2 SECONDS (11.7-14.9)
[2021-05-20 13:02] LABS: AST(SGOT) 17 U/L (15-37); Alanine Aminotransfer ALT/SGPT 28 U/L (16-61); Albumin, Serum 3.6 g/dL (3.2-5.0); Alkaline Phosphatase 110 U/L (45-117); Anion Gap 6 (5-15); BUN 16 mg/dL (7-18); BUN/Creat Ratio 18.7 RATIO (10-20); Bilirubin, Direct 0.06 mg/dL (0.00-0.30); Calcium,Total 8.9 mg/dL (8.5-10.1); Chloride 107 mmol/L (98-107); Cholesterol 183 mg/dL (200); Creatinine, Serum 0.85 mg/dL (0.70-1.30); EST Glomerular Filtration Rate 99 mL/min (>60); Est Glom Filt Rate - Afr Amer 120 mL/min (>60); Globulin 4.1 g/dL (2.2-4.2); Glucose 89 mg/dL (74-106); High Density Lipoprotein 26 mg/dL; Potassium 4.3 mmol/L (3.5-5.1); Protein, Total 7.7 g/dL (6.4-8.2); Sodium Level 137 mmol/L (136-145); Triglycerides 616 mg/dL
== END 2021-05-20 18:00 | disposition home or self-care (01) ==
LOC: LAB 10:12
PROVIDERS: PCP Nurse Practitioner Family; Referring Provider Internal Medicine Cardiovascular Disease; Visit Provider Internal Medicine Cardiovascular Disease
DX: I48.0 Paroxysmal atrial fibrillation (principal); Z79.01 Long term (current) use of anticoagulants; E78.00 Pure hypercholesterolemia, unspecified
CPT/HCPCS: 36415; 80048; 80061; 80076; 85610

== ENCOUNTER 2021-07-01 10:09 | Outpatient (RCR) | payer MEDICAID, SELFPAY ==
[2021-07-01 10:40] LABS: International Normalized Ratio 2.4; Prothrombin Time (Protime)PT. 25.2 SECONDS (11.7-14.9)
[2021-07-03 13:32] LABS: SAR-COV-2 IGA ANTIBODY Negative (Negative)
== END 2021-07-01 18:00 | disposition home or self-care (01) ==
LOC: LAB 10:09
PROVIDERS: Physician Assistant Medical; PCP Nurse Practitioner Family; Referring Provider Internal Medicine Cardiovascular Disease; Visit Provider Internal Medicine Cardiovascular Disease
DX: I48.0 Paroxysmal atrial fibrillation (principal); Z79.01 Long term (current) use of anticoagulants; R06.02 Shortness of breath
CPT/HCPCS: 36415; 85610; 86769

== ENCOUNTER → 2021-07-09 06:48 | Outpatient (CLI) | payer MEDICAID, SELFPAY ==
--- NOTE | 2021-07-09 06:52 | CT_ITS ---
History: Tobacco Dependency Low dose CT Chest: Technique: 1.[address] imaging of the chest performed with low dose technique without contrast. Sagittal and coronal reformatted images also obtained and reviewed. Findings: Small calcified granulomata noted within both lobes of the lung. Heart size is normal. Coronary artery and mitral annular calcification noted. No mediastinal or hilar mass. No pleural effusion or pneumothorax. IMPRESSION: Old granulomatous disease. No evidence of pulmonary nodule or mass. Lung RADS category 1. Annual follow-up screening recommended. Individualized dose optimization techniques were used for this CT. at 1119 Reported and signed by: Nadir Davis MD Electronically Signed: Nadir Davis MD at 11:18 EDT Tel , Service support , CT/Low Dose CT Lung Screening
== END ==
PROVIDERS: PCP Nurse Practitioner Family; Referring Provider Internal Medicine Critical Care Medicine; Visit Provider Internal Medicine Critical Care Medicine
DX: F17.210 Nicotine dependence, cigarettes, uncomplicated (principal)
CPT/HCPCS: 71271

== ENCOUNTER 2021-09-03 09:26 | Outpatient (RCR) | payer MEDICAID, SELFPAY ==
[2021-07-08 20:05] VITALS: BMI 35.4
[2021-09-03 11:02] LABS: International Normalized Ratio 1.5; Prothrombin Time (Protime)PT. 17.8 SECONDS (11.7-14.9)
== END 2021-09-07 03:38 | disposition home or self-care (01) ==
LOC: LAB 09:26
PROVIDERS: PCP Nurse Practitioner Family; Referring Provider Internal Medicine Cardiovascular Disease; Visit Provider Internal Medicine Cardiovascular Disease
DX: I48.0 Paroxysmal atrial fibrillation (principal); Z79.01 Long term (current) use of anticoagulants
CPT/HCPCS: 36415; 85610

== ENCOUNTER 2021-09-24 09:16 | Outpatient (RCR) | payer MEDICAID, SELFPAY ==
[2021-09-07 03:38] VITALS: BMI 35.4
[2021-09-17 10:35] LABS: International Normalized Ratio 1.6; Prothrombin Time (Protime)PT. 18.2 SECONDS (11.7-14.9)
[2021-09-24 10:05] LABS: International Normalized Ratio 1.9; Prothrombin Time (Protime)PT. 20.6 SECONDS (11.7-14.9)
== END 2021-10-07 18:00 | disposition home or self-care (01) ==
LOC: LAB 09:16
PROVIDERS: PCP Nurse Practitioner Family; Referring Provider Internal Medicine Cardiovascular Disease; Visit Provider Internal Medicine Cardiovascular Disease
DX: I48.0 Paroxysmal atrial fibrillation (principal); Z79.01 Long term (current) use of anticoagulants
CPT/HCPCS: 36415; 85610

== ENCOUNTER 2022-02-16 10:57 | Outpatient (RCR) | payer MEDICAID, SELFPAY ==
[2021-10-08 02:16] VITALS: BMI 35.4
[2022-02-16 11:29] LABS: International Normalized Ratio 2.2; Prothrombin Time (Protime)PT. 23.3 SECONDS (11.7-14.9)
== END 2022-02-16 18:00 | disposition home or self-care (01) ==
LOC: LAB 10:57
PROVIDERS: PCP Nurse Practitioner Family; Referring Provider Internal Medicine Cardiovascular Disease; Visit Provider Internal Medicine Cardiovascular Disease
DX: I48.0 Paroxysmal atrial fibrillation (principal); Z79.01 Long term (current) use of anticoagulants
CPT/HCPCS: 36415; 85610

== ENCOUNTER 2022-04-09 10:10 | Emergency (ER) | payer MEDICAID, SELFPAY ==
[2022-04-09 10:11] VITALS: BP 167/94; PULSE 73; RESP 14; TEMP 36.4; O2SAT 96; BMI 41.3
--- NOTE | 2022-04-09 10:43 | CT_ITS ---
STUDY: CT ABDOMEN AND PELVIS WITHOUT CONTRAST REASON FOR EXAM: Male, 57 years old. Pain -- lower abd pain, diarrhea RADIATION DOSAGE (If Supplied By Facility): CTDIvol = ( 22.70 ) mGy, DLP = ( 1185.04 ) mGycm TECHNIQUE: Transaxial images were obtained from the dome of the diaphragm to the symphysis pubis without oral contrast, and without intravenous contrast. Sagittal and coronal images were reconstructed. Individualized dose optimization techniques were used for this CT. COMPARISON: None. FINDINGS: The visualized lung bases are unremarkable. The visualized portions of the heart are within normal limits. There is decreased attenuation of the liver consistent with steatosis. Scattered calcified hepatic granulomas. Normal gallbladder and extrahepatic biliary system. There is a benign calcified granuloma of the spleen. Normal pancreas. Normal bilateral adrenal glands. Normal right kidney. Tiny cyst in the inferior aspect of the left kidney. There is diffuse gastric wall thickening although the stomach is not adequately distended. Normal small intestine. There are scattered colonic diverticula consistent with diverticulosis. The appendix is visualized and appears normal. There is scattered atherosclerotic calcification of the abdominal aorta, without a demonstrated aneurysm. Normal inferior vena cava. There is borderline retroperitoneal lymphadenopathy with enlarged nodes no greater than 10mm in the short axis diameter. Normal urinary bladder. There are prostatic calcifications. Normal abdominal wall. There are degenerative changes of the visualized lumbar spine. Grade 1 anterior listhesis of L5 on S1 with spondylolysis of the pars interarticularis of the L5 vertebrae. CT/Abdomen/Pelvis without Cont IMPRESSION: Fatty infiltration of the liver. Gastric wall thickening although the stomach is not completely distended limiting the evaluation. Electronically Signed: Jeevan Mcmahon MD at 12:50 EDT ,
--- NOTE | 2022-04-09 10:45 | EDS_ITS ---
HPI History of Present Illness Chief Complaint: Nausea/Vomiting/Diarrhea Informant: patient Narrative Narrative: Presents persistent diarrhea for the past 5 days started Wednesday evening. Loose watery nonbloody. Abdominal cramping lower quadrants. He went fishing at [place] over the weekend Wednesday and Wednesday, he states on Wednesday he picked up a sandwich in the morning from gas station shop however did not eat it until the afternoon. No other individuals ate this type of food. No fevers. Wednesday evening nausea and vomiting nonbloody none today. 5 episodes of diarrhea today. No recent antibiotics. No cough. No urinary symptoms. History of paroxysmal A. fib on flecainide metoprolol and warfarin. Followed by Dr. Borrero. Diverticulitis a year ago. He did state on Wednesday he ate food at home and had cashews placed in it. He is tolerating oral intake. Denies heart failure history. States has never had diarrhea last this long before. Prior similar symptoms: Yes [facility] Medical History (Updated 04/09/22 @ 14:[address] Antolin Parker DO) Acid reflux Bacterial endocarditis (2004) Colon polyps Duodenal ulcer history of colon perforation History of pulmonary embolism Hypersomnia, unspecified USP current use of amiodarone USP current use of antiarrhythmic drug New onset atrial fibrillation Nicotine dependence Obesity (BMI 30.0-34.9) DONI (obstructive sleep apnea) Paroxysmal atrial fibrillation Preop cardiovascular exam Rapid palpitations Umbilical hernia Umbilical hernia without obstruction or gangrene Home Medications warfarin 7 mg PO FR 12/12/20 [History Last Taken Unknown] furosemide 40 mg tablet 40 mg PO DAILY PRN #90 tab 05/19/21 [Rx Last Taken Unknown] omega-3 fatty acids 1,000 mg capsule 1,000 mg PO BID 05/21/21 [History Last Taken Unknown] omeprazole 40 mg capsule,delayed release 40 mg PO DAILY #30 cap 08/20/21 [Rx Last Taken Unknown] Oral appliance #1 ea 09/03/21 [Rx Last Taken Unknown] albuterol sulfate 90 mcg/actuation aerosol inhaler 2 puff INHALATION Q6H PRN #18 g 10/08/21 [Rx Last Taken Unknown] atorvastatin 10 mg tablet 10 mg PO DAILY #90 tab 10/20/21 [Rx Last Taken Unknown] warfarin 5 mg tablet 5 mg PO THELMATUWETHSA #102 tab 10/20/21 [Rx Last Taken Unknown] metoprolol succinate 100 mg tablet,extended release 24 hr 100 mg PO DAILY #90 tab 10/21/21 [Rx Last Taken Unknown] flecainide 100 mg tablet 100 mg PO Q12H #180 tab 10/23/21 [Rx Last Taken Unknown] hyoscyamine sulfate [Levsin/SL] 0.125 mg PO TID PRN #10 tab 04/09/22 [Rx Last Taken Unknown] ondansetron 4 mg PO Q6H PRN #10 tab 04/09/22 [Rx Last Taken Unknown] Allergy/AdvReac Type Severity Reaction Status Date / Time amoxicillin trihydrate AdvReac Nausea/Vom/ Verified 04/09/22 10:14 [From Augmentin] Diarrhea potassium clavulanate AdvReac Nausea/Vom/ Verified 04/09/22 10:14 [From Augmentin] Diarrhea Family History Mother Diabetes Heart disease atrial fib, hx ablation Thyroid disorder CAD (coronary artery disease) CABG Grandfather Myocardial infarction Father Cancer bladder Surgical History H/O umbilical hernia repair (01/2018) History of cardioversion (12/05/18) History of colon resection (1994) History of colonoscopy Social History Smoking Status: Current every day smoker tobacco type: cigarettes alcohol intake: current alcohol intake frequency: a few times a month Alcohol type: beer substance use type: former substance user Date of last use: 2016 marijuana, cocaine in 20s, marijuana and crack/cocaine caffeine: Yes Type: coffee Number of servings: 2 what type of physical activity do you participate in: none seatbelt use: always do you feel safe at home: Yes ROS ROS ED Constitutional Constitutional ED: Denies chills, fever(s) or sweats Eyes Eyes: Denies change in vision ENT ENT ED: Denies dysphagia or sore throat Cardiovascular Cardiovascular: Denies chest pain, leg edema, palpitations or racing heartbeat Respiratory/Chest Respiratory/Chest: Denies cough, dyspnea or dyspnea on exertion Gastrointestinal Gastrointestinal: Reports abdominal pain, diarrhea, nausea and vomiting Genitourinary Genitourinary ED: Denies dysuria, hematuria or urinary frequency Musculoskeletal Musculoskeletal: Denies back pain, extremity pain or neck pain Integumentary Denies rash or wounds Neurologic Neurologic: Denies headache(s), paresthesias or weakness EXAM Physical Exam Const Vital Signs: 04/09/22 10:11 04/09/22 11:44 04/09/22 15:12 Temperature 97.6 F L Temperature Source Temporal Pulse Rate 73 62 53 L Respiratory Rate 14 16 18 Blood Pressure 167/94 H 131/56 H 111/65 Blood Pressure Mean 118 81 Pulse Ox 96 98 98 Oxygen Delivery Method Room Air Room Air Positive well nourished and well developed General Appearance ED: well developed and NAD HEENT Reports dry mucous membranes normocephalic and atraumatic Mouth ED: Yes dry mucous membranes Mouth: dry mucous membranes Eyes PERRL, EOMs intact bilaterally and conjunctivae normal General Eye ED: Yes normal appearance of both eyes Neck no lymphadenopathy and supple General: Negative for tenderness Chest Wall Chest: Negative for tenderness Resp normal respiratory effort and normal air movement Effort and Inspection: symmetric chest movement; Negative for respiratory distress Cardio regular rate, regular rhythm and no murmurs Peripheral Pulses: pulses 2+ throughout GI normal to inspection, nondistended, normoactive bowel sounds GI Narrative: Mild tenderness lower quadrants left side suprapubic with no guarding or rebound. Palpation: Negative for guarding or rebound tenderness present Back/Spine no CVA tenderness and no thoracic nor lumbar tenderness Extremity normal to inspection General Extremety ED: Negative for edema or tenderness General Extremity: Negative for edema Neuro oriented x3 and no sensory deficits noted Sensorium / Orientation: awake and alert Skin no rashes or lesions noted and no wounds MDM MDM MDM Narrative Medical decision making narrative: Patient nontoxic reported some intermittent lower abdominal cramps with history of diverticulitis. Work-up initiated CT negative. Labs white count of 10 creatinine normal at 0.94 BUN 16 sodium 133 INR 1.5. Able to obtain stools, negative for C. difficile or any enteropathic findings. Is given fluids Zofran. He is tolerating oral intake. Prescription for Zofran and Levsin. Encourage continued oral hydration at home. Follow-up with his PCP. All questions answered. Lab Data Attestation: I reviewed the patient's lab results. Labs: Laboratory Results - last 24 hr 04/09/22 04/09/22 04/09/22 12:00 12:00 12:00 WBC 10.0 RBC 5.24 Hgb 15.8 Hct 46.3 MCV 88.4 MCH 30.2 MCHC 34.1 RDW Std Deviation 42.8 RDW Coeff of Catie 13.2 Plt Count 285 MPV 9.6 Immature Gran % (Auto) 0.500 Neut % (Auto) 57.2 Lymph % (Auto) 34.0 Stark % (Auto) 6.4 Eos % (Auto) 1.6 Baso % (Auto) 0.3 Absolute Neuts (auto) 5.7 Absolute Lymphs (auto) 3.40 Nucleated RBC % 0 PT 18.0 H INR 1.5 Sodium 133 L Potassium 4.0 Chloride 106 Carbon Dioxide 20.0 L Anion Gap 7 BUN 16 Creatinine 0.94 Estim Creat Clear Calc 87.75 Est GFR (MDRD) Af Amer 107 Est GFR (MDRD) Non-Af 88 BUN/Creatinine Ratio 17.0 Glucose 100 Calcium 8.7 Magnesium 1.8 Total Bilirubin 0.20 AST 24 ALT 41 Alkaline Phosphatase 128 H Total Protein 7.9 Albumin 3.7 Globulin 4.2 Albumin/Globulin Ratio 0.9 Lipase 130 Radiography Diagnostic Testing: Clinical Impression(s) from Imaging Studies Abdomen/Pelvis CT 04/09/22 10:43 IMPRESSION: Fatty infiltration of the liver. Gastric wall thickening although the stomach is not completely distended limiting the evaluation. Electronically Signed: Jeevan Mcmahon MD at 12:50 EDT Reading Location ID and State: [facility] / [place] , Service support , Discharge Plan Triage Chief Complaint: Nausea/Vomiting/Diarrhea ED Provider: Antolin Parker Dx/Rx/DC Orders Clinical Impression: Diarrhea, Nausea & vomiting, Abdominal pain Instructions: Abdominal Pain, ED Gastroenteritis, Viral (Adult) Prescriptions: New ondansetron 4 mg tablet,disintegrating 4 mg PO Q6H PRN (Reason: nausea and vomiting) Qty: 10 RF: 0 hyoscyamine sulfate [Levsin/SL] 0.125 mg tablet, sublingual 0.125 mg PO TID PRN (Reason: abdominal discomfort) Qty: 10 RF: 0 No Action (DME) Oral appliance See Rx Instructions .Route .MEDSUPPLY Qty: 1 RF: 0 warfarin 5 MG tablet 7 mg PO FR RF: 0 furosemide 40 mg tablet 40 mg PO DAILY PRN (Reason: edema) Qty: 90 RF: 3 omega-3 fatty acids [Fish Oil Concentrate] 1,000 mg capsule 1,000 mg PO BID RF: 0 omeprazole 40 mg capsule,delayed release(DR/EC) 40 mg PO DAILY Qty: 30 RF: 11 albuterol sulfate [ProAir HFA] 90 mcg/actuation HFA aerosol inhaler 2 puff inhalation Q6H PRN (Reason: shortness of breath or wheezing) Qty: 18 RF: 6 atorvastatin [Lipitor] 10 mg tablet 10 mg PO DAILY Qty: 90 RF: 3 warfarin 5 mg tablet 5 mg PO SUMOTUWETHSA Qty: 102 RF: 3 metoprolol succinate [Toprol XL] 100 mg tablet extended release 24 hr 100 mg PO DAILY Qty: 90 RF: 3 flecainide 100 mg tablet 100 mg PO Q12H Qty: 180 RF: 3 Primary Care Provider: Felicia Cosme NP Referrals: Felicia Cosme NP, ELECT[employer] CONTACTS ADJUSTER-C [Primary Care Provider] - 3-5 Days if not improving Activity Restrictions/Additional Instructions: Your labs are stable stool studies negative for C. difficile or any enteropathic findings. Negative E. coli Salmonella Shigella, Yersinia, vibrio, rotavirus, norovirus Disposition Disposition: Home, Self Care Discharge Date/Time: 04/09/22 15:17
[2022-04-09] MEDS: 0.9% Normal Saline 1,000 ML 1000 ML IV (11:37)
[2022-04-09] MEDS: Ondansetron 4 MG/2 ML Vial IV (11:38)
[2022-04-09 11:44] VITALS: BP 131/56; PULSE 62; RESP 16; O2SAT 98
[2022-04-09 12:08] LABS: Absolute Neutrophil Count 5.7 X10^3/uL (2.0-7.7); Basophil# 0.03 X10^3/uL; Basophil% 0.3 % (0-1); Eosinophil# 0.16 X10^3/uL; Eosinophils% 1.6 % (0-5); Hematocrit 46.3 % (40-54); Hemoglobin 15.8 g/dL (13.0-16.5); Mean Corp Hgb Conc 34.1 g/dL (32-36); Mean Corpuscular Hgb 30.2 pg (27.0-32.0); Mean Corpuscular Volume 88.4 fL (80-94); Mean Platelet Vol. 9.6 fl (6.2-12.0); Monocyte# 0.64 X10^3/uL; Monocyte% 6.4 % (0-10); NRBC Flagged by Analyzer 0 % (0-5); Neutrophil # 5.71 X10^3/uL (2.7-7.7); Neutrophil % 57.2 % (47-70); Platelet Count 285 K/mm3 (150-450); RBC Distribution Width CV 13.2 % (11.6-14.6); RBC Distribution Width SD 42.8 fl (35.1-43.9); Red Blood Count 5.24 M/mm3 (4.6-6.2)
[2022-04-09 12:18] LABS: International Normalized Ratio 1.5
[2022-04-09 12:26] LABS: ALB/GLOB Ratio 0.9 RATIO (0.9-2.4); AST(SGOT) 24 U/L (15-37); Alanine Aminotransfer ALT/SGPT 41 U/L (16-61); Albumin, Serum 3.7 g/dL (3.2-5.0); Alkaline Phosphatase 128 U/L (45-117); Anion Gap 7 (5-15); BUN 16 mg/dL (7-18); Calcium,Total 8.7 mg/dL (8.5-10.1); Chloride 106 mmol/L (98-107); Creatinine, Serum 0.94 mg/dL (0.70-1.30); EST Glomerular Filtration Rate 88 mL/min (>60); Est Glom Filt Rate - Afr Amer 107 mL/min (>60); Estimated Creatinine Clearance 87.75 ml/min; Globulin 4.2 g/dL (2.2-4.2); Glucose 100 mg/dL (74-106); Lipase 130 U/L (73-393); Magnesium 1.8 mg/dL (1.6-2.6); Protein, Total 7.9 g/dL (6.4-8.2); Sodium Level 133 mmol/L (136-145)
[2022-04-09 15:12] VITALS: BP 111/65; PULSE 53; RESP 18; O2SAT 98
== END 2022-04-09 15:17 | disposition home or self-care (01) ==
PROVIDERS: Emergency Provider Emergency Medicine; PCP Nurse Practitioner Family; Visit Provider Emergency Medicine
DX: R19.7 Diarrhea, unspecified (principal); R11.2 Nausea with vomiting, unspecified; R10.9 Unspecified abdominal pain; F17.210 Nicotine dependence, cigarettes, uncomplicated; G47.33 Obstructive sleep apnea (adult) (pediatric)
CPT/HCPCS: 74176; 80053; 83690; 83735; 85025; 85610; 87493; 87506; 96361; 96374; 99284; J7030; A4216; J2405

== ENCOUNTER 2022-04-21 10:00 | Emergency (ER) | payer MEDICAID, SELFPAY ==
[2022-04-21] VITALS (9 sets, daily range): BP systolic 93–120; BP diastolic 50–84; PULSE 105–122; RESP 16–24; TEMP 36; O2SAT 95–97; BMI 41.9
--- NOTE | 2022-04-21 10:24 | EKG12_ITS ---
Test Reason : CP Blood Pressure : / mmHG Vent. Rate : 123 BPM Atrial Rate : 246 BPM P-R Int : 000 ms QRS Dur : 084 ms QT Int : 354 ms P-R-T Axes : 257 -25 029 degrees QTc Int : 506 ms Atrial flutter with variable A-V block Inferior infarct , age undetermined Abnormal ECG Confirmed by FOX VENTURA, THEODORA ([id number]), supervising editor trailer CARLOS VIRGEN ([id number]) on 04/22/2022 10:11:19 AM Referred By: MARI Confirmed By:THEODORA BRAXTON MD
--- NOTE | 2022-04-21 10:25 | EX.ED.DYSGE1 ---
HPI History of Present Illness Chief Complaint: Palpitations Narrative Narrative: Patient with past medical history of atrial fibrillation remotely, on warfarin, presents with heart palpitations and rapid heart rate that he has had intermittently for the last 1 to 2 weeks. He states that his heart rate has been as high as 180s at times. The other day, he was carrying rebar and mortar and experienced lightheadedness. He has had intermittent chest pain with this. Of note, he states he has not had problems with atrial fibrillation for few years. His chief radiology, Dr. Borrero, is unable to cardiovert him any longer because he states that it took him 300 J to bring him back to a normal rhythm. Hence, the next option would be heart ablation. He states he takes metoprolol and flecainide for his atrial fibrillation. As he has been having problems with palpitations and lightheadedness, he states he was told by the nurse practitioner at [facility] to take an additional flecainide this morning. He has had minimal leg swelling but denies any fevers or chills. No cough, no other symptoms. 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 New onset atrial fibrillation Nicotine dependence Obesity (BMI 30.0-34.9) DONI (obstructive sleep apnea) Paroxysmal atrial fibrillation Preop cardiovascular exam Rapid palpitations Umbilical hernia Umbilical hernia without obstruction or gangrene Home Medications warfarin 7 mg PO WETHFR 12/12/20 [History Last Taken Unknown] furosemide 40 mg tablet 40 mg PO DAILY PRN #90 tab 05/19/21 [Rx Last Taken Unknown] Oral appliance #1 ea 09/03/21 [Rx Last Taken Unknown] atorvastatin 10 mg tablet 10 mg PO DAILY #90 tab 10/20/21 [Rx Last Taken Unknown] metoprolol succinate 100 mg tablet,extended release 24 hr 100 mg PO DAILY #90 tab 10/21/21 [Rx Last Taken Unknown] flecainide 100 mg tablet 100 mg PO Q12H #180 tab 10/23/21 [Rx Last Taken Unknown] metoprolol tartrate 50 mg PO QHS #30 tab 04/21/22 [Rx Last Taken Unknown] warfarin 5 mg PO SUMOTUSA 04/21/22 [History Last Taken Unknown] Allergy/AdvReac Type Severity Reaction Status Date / Time amoxicillin trihydrate AdvReac Nausea/Vom/ Verified 04/09/22 10:14 [From Augmentin] Diarrhea potassium clavulanate AdvReac Nausea/Vom/ Verified 04/09/22 10:14 [From Augmentin] Diarrhea Family History Mother Diabetes Heart disease atrial fib, hx ablation Thyroid disorder CAD (coronary artery disease) CABG Grandfather Myocardial infarction Father Cancer bladder Surgical History H/O umbilical hernia repair (01/2018) History of cardioversion (12/05/18) History of colon resection (1994) History of colonoscopy Social History Smoking Status: Current every day smoker tobacco type: cigarettes alcohol intake: current alcohol intake frequency: a few times a month Alcohol type: beer substance use type: former substance user Date of last use: 2016 marijuana, cocaine in 20s, marijuana and crack/cocaine caffeine: Yes Type: coffee Number of servings: 2 what type of physical activity do you participate in: none seatbelt use: always do you feel safe at home: Yes ROS ROS ED ROS Narrative Constitutional: No fever, no chills. HEENT: No sore throat. No neck pain. No loss of vision. No rhinorrhea. Cardiovascular: Intermittent chest pain. Positive palpitations. Minimal bilateral pedal edema. Respiratory: No cough, no shortness of breath. Abdominal: No abdominal pain. No nausea. No vomiting. Genitourinary: No dysuria. No hematuria. Musculoskeletal: No myalgias. No arthralgias. Neurologic: No headaches. No dizziness. Positive exertional lightheadedness. Skin: No rash. No change in color. Psychiatric: No depression. No anxiety. EXAM Physical Exam Narrative Exam Narrative: Afebrile. Vital signs noted. HEENT: Normocephalic. Atraumatic. PERRL, EOMI. Neck soft and supple. No point tenderness or step off. Cardiovascular: Positive tachycardia. No murmurs, rubs, or gallops appreciated. Respiratory: No tachypnea. Lungs clear to auscultation bilaterally. Gastrointestinal: Abdomen soft, nontender, with normoactive bowel sounds. No rebound or guarding. Neurological: Awake. Alert. Nonfocal, nonlateralizing. Skin: No rash. Normal color. No pallor. Musculoskeletal: No pedal edema. Full range of motion extremities. Const Vital Signs: 04/21/22 10:02 04/21/22 10:05 04/21/22 10:38 Temperature 96.8 F L Temperature Source Temporal Pulse Rate 122 H Respiratory Rate 18 Respiratory Pattern Normal Blood Pressure 120/78 Blood Pressure Mean 92 Pulse Ox 97 97 Oxygen Delivery Method Room Air Nasal Cannula Oxygen Flow Rate (L/min) 2 04/21/22 10:55 04/21/22 11:14 04/21/22 11:59 Temperature Temperature Source Pulse Rate 115 H 105 H 115 H Respiratory Rate 18 24 H 18 Respiratory Pattern Blood Pressure 109/68 100/54 L 116/84 H Blood Pressure Mean 81 69 94 Pulse Ox 95 Oxygen Delivery Method Nasal Cannula Nasal Cannula Oxygen Flow Rate (L/min) 2 2 04/21/22 12:16 04/21/22 13:16 04/21/22 13:47 Temperature Temperature Source Pulse Rate 114 H 117 H 119 H Respiratory Rate 16 18 24 H Respiratory Pattern Blood Pressure 106/68 104/74 93/50 L Blood Pressure Mean 80 84 64 Pulse Ox 97 95 96 Oxygen Delivery Method Room Air Room Air Room Air Oxygen Flow Rate (L/min) 04/21/22 14:08 Temperature Temperature Source Pulse Rate 118 H Respiratory Rate 22 H Respiratory Pattern Blood Pressure 101/60 Blood Pressure Mean 73 Pulse Ox 96 Oxygen Delivery Method Room Air Oxygen Flow Rate (L/min) MDM MDM MDM Narrative Medical decision making narrative: His EKG demonstrates atrial flutter with variable AV block at 123 bpm. Comprehensive work-up was pursued. He was administered metoprolol 5 mg intravenously in attempt to lower his heart rate. Given that he has already taken an additional flecainide this morning, I am hesitant to use multiple medications. CBC shows white count slightly elevated at 13.4 which I think is nonspecific, hemoglobin normal at 15.8 with a hematocrit of 47.0. Platelet count normal at 344. INR 2.2. Sodium slightly low 135 with a normal potassium of 4.3. Normal BUN and creatinine. High-sensitivity troponin negative at 32. BNP normal at 84. Chest x-ray interpreted by myself shows no acute process, no infiltrate or pneumothorax. His resultant heart rate is currently 1 15-1 17. I discussed patient with his chief radiology, Dr. Borrero. The patient recently had a subtherapeutic INR below 2.0. Hence, cardioversion is not possible since he has not been sufficiently anticoagulated for an extended period of time. At the request of cardiology, patient will be redosed with Lopressor. They requested addition of metoprolol 50 mg orally every evening in addition to his 100 mg of flecainide twice a day and his morning metoprolol of 100 mg for total of 150 mg of metoprolol daily. It was felt that he can follow-up with cardiology as an outpatient. Patient prefers outpatient treatment. He had a transient drop in his blood pressure to 93 systolic after the intravenous Lopressor, but he now has a normal blood pressure. He feels well and would like to be discharged. I did discuss the patient with Dr. Borrero who agrees with close outpatient follow-up as his heart rate is approximately 1 17-1 18 currently. Return instructions reviewed. Disposition is discharged home in stable condition. Lab Data Attestation: I reviewed the patient's lab results. Labs: Laboratory Results - last 24 hr 04/21/22 04/21/22 04/21/22 10:15 10:15 10:15 WBC 13.4 H RBC 5.38 Hgb 15.8 Hct 47.0 MCV 87.4 MCH 29.4 MCHC 33.6 RDW Std Deviation 42.5 RDW Coeff of Catie 13.2 Plt Count 344 MPV 9.9 Immature Gran % (Auto) 0.400 Neut % (Auto) 58.8 Lymph % (Auto) 33.8 Blair % (Auto) 5.4 Eos % (Auto) 1.2 Baso % (Auto) 0.4 Absolute Neuts (auto) 7.9 H Absolute Lymphs (auto) 4.52 H Nucleated RBC % 0 PT 24.5 H INR 2.2 Sodium 135 L Potassium 4.3 Chloride 104 Carbon Dioxide 27.0 Anion Gap 4 L BUN 14 Creatinine 0.91 Estim Creat Clear Calc 93.59 Est GFR (MDRD) Af Amer 111 Est GFR (MDRD) Non-Af 92 BUN/Creatinine Ratio 15.4 Glucose 105 Calcium 9.2 Troponin I High Sens 32 B-Natriuretic Peptide 04/21/22 10:15 WBC RBC Hgb Hct MCV MCH MCHC RDW Std Deviation RDW Coeff of Catie Plt Count MPV Immature Gran % (Auto) Neut % (Auto) Lymph % (Auto) Blair % (Auto) Eos % (Auto) Baso % (Auto) Absolute Neuts (auto) Absolute Lymphs (auto) Nucleated RBC % PT INR Sodium Potassium Chloride Carbon Dioxide Anion Gap BUN Creatinine Estim Creat Clear Calc Est GFR (MDRD) Af Amer Est GFR (MDRD) Non-Af BUN/Creatinine Ratio Glucose Calcium Troponin I High Sens B-Natriuretic Peptide 84.7 Radiography Diagnostic Testing: Clinical Impression(s) from Imaging Studies Chest X-Ray 04/21/22 10:40 IMPRESSION: Scattered calcified granulomas. No acute abnormality is seen. Electronically Signed: Jeevan Mcmahon MD at 11:00 EDT , Discharge Plan Triage Chief Complaint: Palpitations ED Provider: Sunny Bowers Dx/Rx/DC Orders Clinical Impression: Atrial fibrillation and flutter, Palpitations, 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 Instructions: ED AFIB, ED Atrial Flutter, ED Palpitations Prescriptions: New metoprolol tartrate 50 mg tablet 50 mg PO QHS Qty: 30 RF: 0 No Action (DME) Oral appliance See Rx Instructions .Route .MEDSUPPLY Qty: 1 RF: 0 warfarin 5 MG tablet 7 mg PO WETHFR RF: 0 warfarin 5 mg tablet 5 mg PO SUMOTUSA RF: 0 furosemide 40 mg tablet 40 mg PO DAILY PRN (Reason: edema) Qty: 90 RF: 3 atorvastatin [Lipitor] 10 mg tablet 10 mg PO DAILY Qty: 90 RF: 3 metoprolol succinate [Toprol XL] 100 mg tablet extended release 24 hr 100 mg PO DAILY Qty: 90 RF: 3 flecainide 100 mg tablet 100 mg PO Q12H Qty: 180 RF: 3 Primary Care Provider: Felicia Cosme NP Referrals: Julio Borrero MD [STAFF PHYSICIAN] - 2 Days Felicia Cosme NP, [employer] [Primary Care Provider] - Activity Restrictions/Additional Instructions: You are in atrial fibrillation/flutter again. You are to follow-up with Dr. Borrero in the next 2 days. Continue your flecainide 100 mg orally twice a day. You are also to take your 100 mg of metoprolol succinate in the morning, but add 50 mg of metoprolol succinate in the evening. Continue your warfarin as previously directed. Disposition Disposition: Home, Self Care
[2022-04-21] MEDS: Metoprolol Tartrate 5 MG/5 ML Vial IV ×2 (10:36→13:15)
--- NOTE | 2022-04-21 10:40 | RAD_ITS ---
STUDY: X-RAY CHEST REASON FOR EXAM: Male, 57 years old. Chest pain TECHNIQUE: Single AP portable view of the chest. COMPARISON: Comparison is made with prior study dated 02/14/2020. FINDINGS: EKG electrodes are seen. The lungs are clear and expanded. Scattered calcified granulomas. There is no demonstrated pleural abnormality. Normal size heart. Normal mediastinum and jesus. Normal visualized pulmonary arteries. Normal visualized aortic arch and descending thoracic aorta. Normal visualized thoracic spine. Normal visualized ribs, clavicles, and shoulders. There is no demonstrated abnormality of the visualized soft tissue structures of the upper abdomen. RAD/Chest 1 View (Portable) IMPRESSION: Scattered calcified granulomas. No acute abnormality is seen. Electronically Signed: Jeevan Mcmahon MD at 11:00 EDT ,
[2022-04-21 10:56] LABS: Absolute Lymphocyte Count 4.52 X10^3/uL (0.83-4.51); Absolute Neutrophil Count 7.9 X10^3/uL (2.0-7.7); Basophil# 0.05 X10^3/uL; Basophil% 0.4 % (0-1); Eosinophil# 0.16 X10^3/uL; Eosinophils% 1.2 % (0-5); Hemoglobin 15.8 g/dL (13.0-16.5); Lymphocyte # 4.52 X10^3/ul (0.83-4.51); Lymphocyte % 33.8 % (19-41); Mean Corp Hgb Conc 33.6 g/dL (32-36); Mean Corpuscular Hgb 29.4 pg (27.0-32.0); Mean Corpuscular Volume 87.4 fL (80-94); Mean Platelet Vol. 9.9 fl (6.2-12.0); Monocyte# 0.72 X10^3/uL; Monocyte% 5.4 % (0-10); NRBC Flagged by Analyzer 0 % (0-5); Neutrophil # 7.86 X10^3/uL (2.7-7.7); Neutrophil % 58.8 % (47-70); Platelet Count 344 K/mm3 (150-450); RBC Distribution Width CV 13.2 % (11.6-14.6); RBC Distribution Width SD 42.5 fl (35.1-43.9); Red Blood Count 5.38 M/mm3 (4.6-6.2); White Blood Count 13.4 K/mm3 (4.4-11.0)
[2022-04-21 11:03] LABS: International Normalized Ratio 2.2; Prothrombin Time (Protime)PT. 24.5 SECONDS (11.7-14.9)
[2022-04-21 11:11] LABS: Anion Gap 4 (5-15); BUN 14 mg/dL (7-18); BUN/Creat Ratio 15.4 RATIO (10-20); Calcium,Total 9.2 mg/dL (8.5-10.1); Chloride 104 mmol/L (98-107); Creatinine, Serum 0.91 mg/dL (0.70-1.30); EST Glomerular Filtration Rate 92 mL/min (>60); Est Glom Filt Rate - Afr Amer 111 mL/min (>60); Estimated Creatinine Clearance 93.59 ml/min; Glucose 105 mg/dL (74-106); Potassium 4.3 mmol/L (3.5-5.1); Sodium Level 135 mmol/L (136-145); Troponin-I HS (w/2H Reflex) 32 pg/mL (3.0-78.0)
[2022-04-21 11:18] LABS: BNP,B-Type NATRIURETIC PEPTIDE 84.7 pg/mL (0-100)
[2022-04-21 12:54] LABS: Reflex Troponin-HS? (from REC) Y
== END 2022-04-21 14:34 | disposition home or self-care (01) ==
PROVIDERS: Emergency Provider Emergency Medicine; PCP Nurse Practitioner Family; Visit Provider Emergency Medicine
DX: I48.0 Paroxysmal atrial fibrillation (principal); I48.92 Unspecified atrial flutter; Z79.01 Long term (current) use of anticoagulants; R00.2 Palpitations; F17.210 Nicotine dependence, cigarettes, uncomplicated; G47.33 Obstructive sleep apnea (adult) (pediatric); Z79.899 Other long term (current) drug therapy
CPT/HCPCS: 71045; 80048; 83880; 84484; 85025; 85610; 93005; 96374; 96376; 99284; A4216

== ENCOUNTER → 2022-04-23 | Outpatient (CLI) | payer MEDICAID, SELFPAY ==
[2022-04-23 11:24] LABS: Hemoglobin A1c 6.2 % (3.8-5.6)
[2022-04-23 11:53] LABS: AST(SGOT) 18 U/L (15-37); Alanine Aminotransfer ALT/SGPT 25 U/L (16-61); Albumin, Serum 3.5 g/dL (3.2-5.0); Alkaline Phosphatase 119 U/L (45-117); Anion Gap 5 (5-15); BUN 15 mg/dL (7-18); BUN/Creat Ratio 17.6 RATIO (10-20); Bilirubin, Direct 0.06 mg/dL (0.00-0.30); Calcium,Total 8.7 mg/dL (8.5-10.1); Chloride 103 mmol/L (98-107); Cholesterol 142 mg/dL (200); Creatinine, Serum 0.85 mg/dL (0.70-1.30); EST Glomerular Filtration Rate 99 mL/min (>60); Est Glom Filt Rate - Afr Amer 120 mL/min (>60); Globulin 3.7 g/dL (2.2-4.2); Glucose 108 mg/dL (74-106); High Density Lipoprotein 25 mg/dL; Potassium 4.3 mmol/L (3.5-5.1); Protein, Total 7.2 g/dL (6.4-8.2); Sodium Level 136 mmol/L (136-145); Triglycerides 425 mg/dL
== END | disposition home or self-care (01) ==
LOC: LAB 10:14
PROVIDERS: PCP Nurse Practitioner Family; Referring Provider Internal Medicine Cardiovascular Disease; Visit Provider Internal Medicine Cardiovascular Disease
DX: E78.5 Hyperlipidemia, unspecified (principal); E78.1 Pure hyperglyceridemia
CPT/HCPCS: 36415; 80048; 80061; 80076; 83036

== ENCOUNTER 2022-05-15 12:21 | Outpatient (RCR) | payer MEDICAID, SELFPAY ==
[2022-03-08 03:19] VITALS: BMI 35.4
[2022-05-15 13:01] LABS: International Normalized Ratio 2.1; Prothrombin Time (Protime)PT. 23.6 SECONDS (11.7-14.9)
[2022-05-15 13:25] LABS: Anion Gap 3 (5-15); BUN 13 mg/dL (7-18); BUN/Creat Ratio 14.6 RATIO (10-20); Chloride 103 mmol/L (98-107); Creatinine, Serum 0.89 mg/dL (0.70-1.30); EST Glomerular Filtration Rate 94 mL/min (>60); Est Glom Filt Rate - Afr Amer 113 mL/min (>60); Glucose 93 mg/dL (74-106); Magnesium 2.5 mg/dL (1.6-2.6); Potassium 4.4 mmol/L (3.5-5.1); Sodium Level 137 mmol/L (136-145); T4 Free Direct 0.82 ng/dL (0.76-1.46); Thyroid Stim Hormone (TSH) 3.65 uIU/mL (0.358-3.74)
== END 2022-06-07 02:13 | disposition home or self-care (01) ==
LOC: LAB 12:21
PROVIDERS: Nurse Practitioner Family; PCP Nurse Practitioner Family; Referring Provider Internal Medicine Cardiovascular Disease; Visit Provider Internal Medicine Cardiovascular Disease
DX: I48.0 Paroxysmal atrial fibrillation (principal); Z79.01 Long term (current) use of anticoagulants
CPT/HCPCS: 36415; 80048; 83735; 84439; 84443; 85610; 93225; 93226

== ENCOUNTER → 2022-05-15 | Outpatient (CLI) | payer MEDICAID, SELFPAY | END | disposition home or self-care (01) | LOC: PSN 11:46 | PROVIDERS: PCP Nurse Practitioner Family; Referring Provider Nurse Practitioner Family; Visit Provider Nurse Practitioner Family | DX: R55 Syncope and collapse (principal); I48.0 Paroxysmal atrial fibrillation; Z79.01 Long term (current) use of anticoagulants | CPT/HCPCS: 36415; 80048; 83735; 84439; 84443; 85610; 93225; 93226 ==

== ENCOUNTER → 2022-07-21 | Outpatient (CLI) | payer MEDICAID, SELFPAY ==
--- NOTE | 2022-07-21 13:17 | CT_ITS ---
STUDY: LOW DOSE CT LUNG CANCER SCREENING REASON FOR EXAM: Male, 57 years old. Smoking and gt; 20 pack years RADIATION DOSAGE (If Supplied By Facility): CTDIvol = ( 4.02 ) mGy, DLP = ( 150.49 ) mGycm TECHNIQUE: No contrast was administered. Low dose technique was utilized (average mAS-38 and kVp 120). 1.25 mm axial source images with a slice interval of 1.25-mm were reconstructed in lung windows. 2.5 mm axial source images with a slice interval of 2.5-mm were reconstructed in lung windows. 5.0 mm axial source images with a slice interval of 5.0-mm were reconstructed in soft tissue windows. COMPARISON: Comparison is made with prior study 07/09/2021. NODULES: No suspicious nodules are seen. Stable scattered calcified granulomas. Emphysema: No significant emphysematous changes are present. Endobronchial lesion: None Aorta: Atherosclerotic plaque formation of the aortic arch. CORONARY ARTERIES: Coronary artery calcification is seen. Heart: Calcified mitral valve annulus. Pulmonary artery: Unremarkable. Mediastinal nodes: Unremarkable. Other chest and abdominal findings: CT/Low Dose CT Lung Screening IMPRESSION: Lung-RADS category 2 - Continue annual screening with LDCT in 12 months. IMPORTANT NOTES FOR USE: ACR Lung-RADS Version 1.1 Assessment Categories Release Date: 2018 Category: Coded 0-4 bases on nodule(s) with highest degree of suspicion. Negative screen is defined as categories 1 and 2; a positive screen is defined as categories 3 and 4. Category 3 and 4A nodules that are unchanged on interval CT should be coded as category 2, and individuals returned to screening in 12 months. Category 4X: Category 3 or 4 nodules with additional imaging findings that increase the suspicion of lung cancer, such as spiculation, GGN that doubles in size in 1 year, enlarged lymph notes, etc. Category Modifiers: S (significant finding unrelated to lung cancer) Electronically Signed: Jeevan Mcmahon MD at 14:14 EDT ,
== END | disposition home or self-care (01) ==
LOC: CT 13:15
PROVIDERS: PCP Nurse Practitioner Family; Referring Provider Nurse Practitioner Acute Care; Visit Provider Nurse Practitioner Acute Care
DX: F17.210 Nicotine dependence, cigarettes, uncomplicated (principal)
CPT/HCPCS: 71271

== ENCOUNTER → 2022-08-26 | Outpatient (CLI) | payer MEDICAID, SELFPAY | END | disposition home or self-care (01) | LOC: SL 22:11 | PROVIDERS: PCP Nurse Practitioner Family | DX: G47.33 Obstructive sleep apnea (adult) (pediatric) (principal) | CPT/HCPCS: 95811 ==